=== PATIENT | male | born 1970 | race Caucasian/White ===

== ENCOUNTER 2021-12-30 18:41 | Inpatient (IN) | payer MEDICAID ==
[2021-12-30] MEDS ORDERED: PIPERACILLIN-TAZOBACTAM 3.375 GM in SODIUM CHLORIDE 0.9% 100 ML IVPB STA (19:18)
[2021-12-30] MEDS ORDERED: VANCOMYCIN IV PER PHARMACY 1 EACH MISC MISCELLANE PRN (19:18)
[2021-12-30] MEDS ORDERED: HYDROmorphone 1 MG/ML 1 ML SYRINGE IVP STA (19:21)
--- NOTE | 2021-12-30 19:23 | ED ---
General Adult HPI - General Chief complaint: Skin/Abscess/Foreign Body Stated complaint: Infection Time Seen by Provider: 12/30/21 19:06 Source: patient Mode of arrival: ambulatory Limitations: no limitations - History of Present Illness Initial comments: Patient is a pleasant 51-year-old male presenting to the emergency department with concern regarding infection in the scrotal region. Onset of symptoms was 5 or 6 days ago. Symptoms worsened the past couple of days. Patient has been having fevers. Patient now is having drainage. Patient is having swelling of the scrotum and penile region. There is foul odor associated. No history of similar symptoms previously however there is a family history of similar problems. - Related Data Allergies Allergy/AdvReac Type Severity Reaction Status Date / Time lactose AdvReac Diarrhea Verified 12/30/21 19:03 Review of Systems ROS Statement: Those systems with pertinent positive or pertinent negative responses have been documented in the HPI. ROS Other: All systems not noted in ROS Statement are negative. Constitutional: Reports: fever, chills Eyes: Denies: eye pain ENT: Denies: ear pain Respiratory: Denies: cough Cardiovascular: Denies: chest pain Endocrine: Denies: fatigue Genitourinary: Reports: as per HPI, testicular pain, testicular mass Musculoskeletal: Denies: back pain Skin: Reports: rash Neurological: Denies: weakness Past Medical History Past Medical History: No Reported History History of Any Multi-Drug Resistant Organisms: None Reported Additional Past Surgical History / Comment(s): oral surgery Past Psychological History: No Psychological Hx Reported Smoking Status: Never smoker Past Alcohol Use History: Occasional Past Drug Use History: None Reported General Exam Limitations: no limitations General appearance: alert, in no apparent distress Head exam: Present: normocephalic Eye exam: Present: normal appearance Neck exam: Present: normal inspection Respiratory exam: Present: normal lung sounds bilaterally Cardiovascular Exam: Present: tachycardia GI/Abdominal exam: Present: soft. Absent: tenderness exam: Present: other (Patient with moderate penile and scrotal swelling. There is mild scrotal erythema. There is open abscess area posterior to the scrotum, approximate 1 cm with purulent drainage and odor. No crepitus. No black discoloration.) Extremities exam: Present: normal inspection Neurological exam: Present: alert Psychiatric exam: Present: normal affect, normal mood Skin exam: Present: erythema (mild erythema of the scrotum) Course Vital Signs 06/05/22 18:58 Temperature 99.6 F Pulse Rate 121 H Respiratory 16 Rate Blood Pressure 116/69 O2 Sat by Pulse 100 Oximetry - Reevaluation(s) Reevaluation #1: 12/30/21 20:36 Patient does meet sepsis criteria diagnosed at 2035. Blood culture and lactic acid and IV antibiotics have all been ordered. IV fluids at 1 30 mL per hour. Case discussed with Dr. Garcia with urology who will review films and call back 12/30/21 20:49 Case again discussed with Dr. garcia who does not have concern for Mario's gangrene. He is agreement with Zosyn and vancomycin. He recommends nothing by mouth after midnight and will reevaluate patient tomorrow in the hospital Medical Decision Making - Lab Data Result diagrams: 12/30/21 20:00 12/30/21 20:00 Lab Results 12/30/21 12/30/21 12/30/21 Range/Units 20:00 20:00 20:00 WBC 12.6 H (3.8-10.6) k/uL RBC 4.98 (4.30-5.90) m/uL Hgb 15.3 (13.0-17.5) gm/dL Hct 46.5 (39.0-53.0) % MCV 93.4 (80.0-100.0) fL MCH 30.8 (25.0-35.0) pg MCHC 33.0 (31.0-37.0) g/dL RDW 13.6 (11.5-15.5) % Plt Count 296 (150-450) k/uL MPV 8.0 PT 11.3 (9.0-12.0) sec INR 1.1 (<1.2) APTT 27.1 (22.0-30.0) sec Sodium 130 L (137-145) mmol/L Potassium 5.0 (3.5-5.1) mmol/L Chloride 95 L (98-107) mmol/L Carbon Dioxide 22 (22-30) mmol/L Anion Gap 13 mmol/L BUN 24 H (9-20) mg/dL Creatinine 1.38 H (0.66-1.25) mg/dL Est GFR (CKD-EPI)AfAm 68 (>60 ml/min/1.73 sqM) Est GFR (CKD-EPI)NonAf 59 (>60 ml/min/1.73 sqM) Glucose 294 H (74-99) mg/dL Calcium 8.1 L (8.4-10.2) mg/dL Total Bilirubin 1.2 (0.2-1.3) mg/dL AST 33 (17-59) U/L ALT 33 (4-49) U/L Alkaline Phosphatase 169 H (38-126) U/L Total Protein 6.8 (6.3-8.2) g/dL Albumin 3.6 (3.5-5.0) g/dL Critical Care Time Critical Care Time: Yes Total Critical Care Time: 33 Disposition Clinical Impression: Cellulitis of scrotum, Abscess of scrotum, Sepsis Disposition: ADMITTED IP TO THIS HOSP Condition: Serious Is patient prescribed a controlled substance at d/c from ED?: No Referrals: Lennox Mann MD [Primary Care Provider] - 1-2 days Time of Disposition: 20:50
[2021-12-30] MEDS ORDERED: ACETAMINOPHEN TAB 500 MG TAB PO STA (20:00)
[2021-12-30 20:21] LABS: HCT 46.5 % (39.0-53.0); HGB 15.3 gm/dL (13.0-17.5); MCH 30.8 pg (25.0-35.0); MCV 93.4 fL (80.0-100.0); Platelet Count 296 k/uL (150-450); RBC 4.98 m/uL (4.30-5.90); RDW 13.6 % (11.5-15.5); WBC 12.6 k/uL (3.8-10.6)
[2021-12-30 20:28] LABS: INR 1.1 (<1.2); Partial Thromboplastin Time 27.1 sec (22.0-30.0); Prothrombin Time 11.3 sec (9.0-12.0)
[2021-12-30 20:33] LABS: Albumin 3.6 g/dL (3.5-5.0); Calcium 8.1 mg/dL (8.4-10.2); Total Bilirubin 1.2 mg/dL (0.2-1.3); Total Protein 6.8 g/dL (6.3-8.2)
[2021-12-30] MEDS ORDERED: NALOXONE 0.4 MG/ML 1 ML VIAL IV PRN (20:51)
[2021-12-30] MEDS ORDERED: ONDANSETRON 4 MG/2 ML VIAL IVP PRN (20:51)
--- NOTE | 2021-12-30 20:55 | CT ---
EXAMINATION TYPE: CT pelvis w con DATE OF EXAM: 12/30/2021 COMPARISON: None HISTORY: Perineal abscess CT DLP: 1346.7 mGycm Automated exposure control for dose reduction was used. CONTRAST: Performed without and with IV Contrast, patient injected with 100 mL of Isovue 300. Images obtained from the mid liver to the subtrochanteric femurs with IV contrast. Bladder distends smoothly. There is fluid in the large bowel down to the rectum. No free fluid in the pelvis. There is bilateral inguinal hernias that contain fat. There is subcutaneous edema around the scrotum. This is more on the right side. No drainable fluid collection. No pelvic lymphadenopathy. Kidneys appear normal. No retroperitoneal adenopathy. Bony pelvis is intac t. Delayed images show normal renal excretion at the ureters. The bony pelvis is intact. Hip joints are intact. There are bilateral enlarged inguinal lymph nodes m easuring up to 2.5 x 1.5 cm. IMPRESSION: There is scrotal edema and subcutaneous fluid extending into the pubic region and consistent with sissy lulitis. No drainable fluid collection. Large bowel fluid levels consistent with diarrhea. Inguinal lymphadenopathy.
--- NOTE | 2021-12-30 21:21 | US ---
EXAMINATION TYPE: US venous doppler duplex LE LT DATE OF EXAM: 12/30/2021 7:27 PM COMPARISON: NONE CLINICAL HISTORY: swelling. calf pain, no swelling, no h/o dvt SIDE PERFORMED: Left TECHNIQUE: The lower extremity deep venous system is examined utilizing real time linear array sonog jame with graded compression, doppler sonography and color-flow sonography. VESSELS IMAGED: Common Femoral Vein Deep Femoral Vein Greater Saphenous Vein * Femoral Vein Popliteal Vein Small Saphenous Vein * Proximal Calf Veins (* superficial vessels) Left Leg: Negative for DVT IMPRESSION: No sign of deep vein thrombosis in the left leg.
[2021-12-30] MEDS ORDERED: VANCOMYCIN 1,500 MG in SODIUM CHLORIDE 0.9% 250 ML IVPB ONE (21:30)
[2021-12-30 21:44] LABS: Band Neutrophils % 18 %; Lymphocytes # (M) 0.13 k/uL (1.0-4.8); Monocytes # (M) 0.38 k/uL (0-1.0); Neutrophils % (M) 78 %; Nucleated Red Blood Cells 0 /100 WBC (0-0); RBC Morphology Normal; Total Cells Counted 100
[2021-12-30 23:05] LABS: Glucose,Whole Blood 252 mg/dL (75-99)
[2021-12-30] MEDS: INSULIN ASPART (NovoLOG) 100 UNIT/ML VIAL SQ SCH (23:16)
[2021-12-31 01:25] LABS: Glucose,Whole Blood 177 mg/dL (75-99)
[2021-12-31] MEDS: SODIUM CHLORIDE 0.9% 1,000 ML IV SCH ×4 (04:01→20:47)
[2021-12-31] MEDS: PIPERACILLIN-TAZOBACTAM 3.375 GM in SODIUM CHLORIDE 0.9% 100 ML IVPB SCH ×3 (04:04→20:47)
[2021-12-31 06:51] LABS: Calcium 7.5 mg/dL (8.4-10.2); Potassium 4.6 mmol/L (3.5-5.1)
[2021-12-31 07:21] LABS: Glucose,Whole Blood 159 mg/dL (75-99)
[2021-12-31 07:35] LABS: HCT 43.1 % (39.0-53.0); MCH 30.2 pg (25.0-35.0); MCHC 32.4 g/dL (31.0-37.0); MCV 93.3 fL (80.0-100.0); Mean Platelet Volume 8.1; Platelet Count 220 k/uL (150-450); RBC 4.62 m/uL (4.30-5.90); RDW 13.6 % (11.5-15.5); WBC 11.3 k/uL (3.8-10.6)
[2021-12-31 07:45] LABS: Appearance,Urine Clear (Clear); Bacteria,Urine Rare /hpf; Bilirubin,Urine Negative (Negative); Blood,Urine Moderate (Negative); Color,Urine Yellow; Glucose,Urine (UA) Negative (Negative); Ketones,Urine Negative (Negative); Leukocyte Esterase,Urine Trace (Negative); Mucus,Urine Rare /hpf; Nitrite,Urine Negative (Negative); Protein,Urine 1+ (Negative); RBC,Urine <1 /hpf (0-5); Specific Gravity,Urine 1.031 (1.001-1.035); Squamous Epithelial Cell,Urine <1 /hpf (0-4); Urobilinogen,Urine <2.0 mg/dL (<2.0); WBC,Urine 13 /hpf (0-5)
[2021-12-31] MEDS: INSULIN ASPART (NovoLOG) 100 UNIT/ML VIAL SQ SCH ×4 (08:53→20:44)
[2021-12-31] MEDS: PANTOPRAZOLE 40 MG/10 ML VIAL IV SCH (09:01)
[2021-12-31 09:18] LABS: Band Neutrophils % 8 %; Eosinophils # (M) 0.11 k/uL (0-0.7); Lymphocytes # (M) 0.34 k/uL (1.0-4.8); Metamyelocytes # (M) 0.11 k/uL (0); Metamyelocytes % 1 %; Monocytes # (M) 1.02 k/uL (0-1.0); Neutrophils % (M) 80 %; Nucleated Red Blood Cells 0 /100 WBC (0-0); Total Cells Counted 200
[2021-12-31 09:19] LABS: RBC Morphology Normal
[2021-12-31] MEDS: VANCOMYCIN 1,500 MG in SODIUM CHLORIDE 0.9% 250 ML IVPB SCH ×2 (10:00→21:14)
--- NOTE | 2021-12-31 10:08 | P.GSHP ---
History of Present Illness H&P Date: 12/31/21 51-year-old gentleman who for 5 days has had tenderness and swelling of the scrotum. He states that he had a pimple on the bottom the scrotum and it swelled. On Friday did swell a lot and he ended up in the emergency room. He is evaluated and found to have a scrotal abscess. Apparently spontaneously drained. He is admitted however due to the significant scrotal cellulitis. He states he feels a little bit better since it has drained. He has had fever and chills. His white count was 12.6. He has not had previous abscess. There have been no injuries. he is not diabetic. The computed tomography scan shows scrotal edema without significant fluid collection. There is no air noted. - Constitutional Constitutional: Denies chills, Denies fever - EENT Eyes: denies blurred vision, denies pain Ears, nose, mouth and throat: Denies headache, Denies sore throat - Cardiovascular Cardiovascular: Denies chest pain, Denies shortness of breath - Respiratory Respiratory: Denies cough, Denies 7 - Gastrointestinal Gastrointestinal: Denies abdominal pain, Denies diarrhea, Denies nausea, Denies vomiting - Genitourinary (Female) Genitourinary: Denies dysuria, Denies hematuria - Genitourinary (Male) Genitourinary: Denies dysuria, Denies hematuria - Musculoskeletal Musculoskeletal: Denies myalgias - Integumentary Integumentary: Denies pruritus, Denies rash - Neurological Neurological: Denies numbness, Denies weakness - Psychiatric Psychiatric: Denies anxiety, Denies depression - Endocrine Endocrine: Denies fatigue, Denies weight change Past Medical History Past Medical History: No Reported History History of Any Multi-Drug Resistant Organisms: None Reported Additional Past Surgical History / Comment(s): oral surgery -- wisdom teeth Past Anesthesia/Blood Transfusion Reactions: No Reported Reaction Past Psychological History: No Psychological Hx Reported Smoking Status: Never smoker Past Alcohol Use History: Occasional Past Drug Use History: None Reported Medications and Allergies Home Medications Medication Instructions Recorded Confirmed Type Multivitamins, Thera [Multivitamin 1 tab PO DAILY 12/30/21 12/30/21 History (formulary)] Allergies Allergy/AdvReac Type Severity Reaction Status Date / Time lactose AdvReac Diarrhea Verified 12/30/21 21:17 Surgical - Exam Vital Signs Temp Pulse Resp BP Pulse Ox 99.6 F 121 H 16 116/69 100 12/30/21 18:58 12/30/21 18:58 12/30/21 18:58 12/30/21 18:58 12/30/21 18:58 - General Mild distress well developed, well nourished - Eyes PERRL - ENT no hearing loss - Neck no masses, trachea midline - Respiratory normal expansion, normal respiratory effort - Cardiovascular Rhythm: regular - Abdomen Abdomen: soft, non tender - Genitourinary Erythema of the scrotum. Phallus is circumcised. There is a nickel-size area of necrosis the base of the shaft with drainage. The scrotum is erythematous edematous swollen and tender. There is some drainage in the posterior scrotum. There is no crepitus. - Integumentary no rash, no growths - Neurologic normal coordination, normal sensation - Musculoskeletal normal posture - Psychiatric oriented to time, oriented to person, oriented to place, speech is normal, memory intact Results - Labs 12/31/21 06:08 12/31/21 06:08 Abnormal Lab Results - Last 24 Hours (Table) 12/30/21 12/30/21 12/30/21 Range/Units 20:00 20:00 20:00 WBC 12.6 H (3.8-10.6) k/uL Neutrophils # (Manual) 12.00 H (1.3-7.7) k/uL Lymphocytes # (Manual) 0.13 L (1.0-4.8) k/uL Monocytes # (Manual) (0-1.0) k/uL Metamyelocytes # (Man) (0) k/uL Sodium 130 L (137-145) mmol/L Chloride 95 L (98-107) mmol/L BUN 24 H (9-20) mg/dL Creatinine 1.38 H (0.66-1.25) mg/dL Glucose 294 H (74-99) mg/dL POC Glucose (mg/dL) (75-99) mg/dL Plasma Lactic Acid Keegan 2.7 H* (0.7-2.0) mmol/L Calcium 8.1 L (8.4-10.2) mg/dL Alkaline Phosphatase 169 H (38-126) U/L Urine Protein (Negative) Urine Blood (Negative) Ur Leukocyte Esterase (Negative) Urine WBC (0-5) /hpf Urine Bacteria (None) /hpf Urine Mucus (None) /hpf 12/30/21 12/31/21 12/31/21 Range/Units 23:04 01:16 06:08 WBC 11.3 H (3.8-10.6) k/uL Neutrophils # (Manual) 9.90 H (1.3-7.7) k/uL Lymphocytes # (Manual) 0.34 L (1.0-4.8) k/uL Monocytes # (Manual) 1.02 H (0-1.0) k/uL Metamyelocytes # (Man) 0.11 H (0) k/uL Sodium (137-145) mmol/L Chloride (98-107) mmol/L BUN (9-20) mg/dL Creatinine (0.66-1.25) mg/dL Glucose (74-99) mg/dL POC Glucose (mg/dL) 252 H 177 H (75-99) mg/dL Plasma Lactic Acid Keegan (0.7-2.0) mmol/L Calcium (8.4-10.2) mg/dL Alkaline Phosphatase (38-126) U/L Urine Protein (Negative) Urine Blood (Negative) Ur Leukocyte Esterase (Negative) Urine WBC (0-5) /hpf Urine Bacteria (None) /hpf Urine Mucus (None) /hpf 12/31/21 12/31/21 12/31/21 Range/Units 06:08 07:19 07:26 WBC (3.8-10.6) k/uL Neutrophils # (Manual) (1.3-7.7) k/uL Lymphocytes # (Manual) (1.0-4.8) k/uL Monocytes # (Manual) (0-1.0) k/uL Metamyelocytes # (Man) (0) k/uL Sodium 132 L (137-145) mmol/L Chloride (98-107) mmol/L BUN 28 H (9-20) mg/dL Creatinine (0.66-1.25) mg/dL Glucose 184 H (74-99) mg/dL POC Glucose (mg/dL) 159 H (75-99) mg/dL Plasma Lactic Acid Keegan (0.7-2.0) mmol/L Calcium 7.5 L (8.4-10.2) mg/dL Alkaline Phosphatase (38-126) U/L Urine Protein 1+ H (Negative) Urine Blood Moderate H (Negative) Ur Leukocyte Esterase Trace H (Negative) Urine WBC 13 H (0-5) /hpf Urine Bacteria Rare H (None) /hpf Urine Mucus Rare H (None) /hpf Microbiology - Last 24 Hours (Table) 12/30/21 20:00 Gram Stain - Preliminary Groin Wound Culture - Preliminary Diabetes panel 12/30/21 12/31/21 Range/Units 20:00 06:08 Sodium 130 L 132 L (137-145) mmol/L Potassium 5.0 4.6 (3.5-5.1) mmol/L Chloride 95 L 100 (98-107) mmol/L Carbon Dioxide 22 23 (22-30) mmol/L BUN 24 H 28 H (9-20) mg/dL Creatinine 1.38 H 1.19 (0.66-1.25) mg/dL Glucose 294 H 184 H (74-99) mg/dL Calcium 8.1 L 7.5 L (8.4-10.2) mg/dL AST 33 (17-59) U/L ALT 33 (4-49) U/L Alkaline Phosphatase 169 H (38-126) U/L Total Protein 6.8 (6.3-8.2) g/dL Albumin 3.6 (3.5-5.0) g/dL Calcium panel 12/30/21 12/31/21 Range/Units 20:00 06:08 Calcium 8.1 L 7.5 L (8.4-10.2) mg/dL Albumin 3.6 (3.5-5.0) g/dL Pituitary panel 12/30/21 12/31/21 Range/Units 20:00 06:08 Sodium 130 L 132 L (137-145) mmol/L Potassium 5.0 4.6 (3.5-5.1) mmol/L Chloride 95 L 100 (98-107) mmol/L Carbon Dioxide 22 23 (22-30) mmol/L BUN 24 H 28 H (9-20) mg/dL Creatinine 1.38 H 1.19 (0.66-1.25) mg/dL Glucose 294 H 184 H (74-99) mg/dL Calcium 8.1 L 7.5 L (8.4-10.2) mg/dL Adrenal panel 12/30/21 12/31/21 Range/Units 20:00 06:08 Sodium 130 L 132 L (137-145) mmol/L Potassium 5.0 4.6 (3.5-5.1) mmol/L Chloride 95 L 100 (98-107) mmol/L Carbon Dioxide 22 23 (22-30) mmol/L BUN 24 H 28 H (9-20) mg/dL Creatinine 1.38 H 1.19 (0.66-1.25) mg/dL Glucose 294 H 184 H (74-99) mg/dL Calcium 8.1 L 7.5 L (8.4-10.2) mg/dL Total Bilirubin 1.2 (0.2-1.3) mg/dL AST 33 (17-59) U/L ALT 33 (4-49) U/L Alkaline Phosphatase 169 H (38-126) U/L Total Protein 6.8 (6.3-8.2) g/dL Albumin 3.6 (3.5-5.0) g/dL - Imaging US - pelvic: report reviewed, image reviewed Assessment and Plan Assessment: Impression: Scrotal cellulitis, scrotal edema with spontaneous drainage of abscess, 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 Recommendations: Patient is getting IV fluids and IV antibiotics. He'll require exploration,drainage and debridement today. This is been discussed with the patient.
[2021-12-31 11:23] LABS: Glucose,Whole Blood 131 mg/dL (75-99)
[2021-12-31] MEDS: HYDROmorphone 1 MG/ML 1 ML SYRINGE IVP PRN (13:18)
[2021-12-31] MEDS ORDERED: LACTATED RINGERS 1,000 ML IV ONE ×2 (15:23→17:10)
[2021-12-31] MEDS ORDERED: ONDANSETRON 4 MG/2 ML VIAL IVP ONE (15:27)
[2021-12-31] MEDS ORDERED: MIDAZOLAM 2 MG/2 ML VIAL IVP ONE (15:46)
[2021-12-31 16:14] LABS: Glucose,Whole Blood 78 mg/dL (75-99)
[2021-12-31] MEDS ORDERED: PROPOFOL 10 MG/ML 20 ML VIAL IV ONE (16:23)
[2021-12-31] MEDS ORDERED: LIDOCAINE 2% INJ 20 MG/ML (2 ML VIAL) ONE (16:23)
[2021-12-31] MEDS ORDERED: fentaNYL (PF) 50 MCG/ML 2 ML AMP ONE (16:23)
[2021-12-31] MEDS ORDERED: PHENYLEPHRINE-0.9% NACL SYG 1,000 MCG/10 ML SYRINGE ONE (16:23)
[2021-12-31] MEDS ORDERED: HYDROmorphone (PF) 1 MG/ML ONE (16:23)
[2021-12-31] MEDS ORDERED: MIDAZOLAM 2 MG/2 ML VIAL ONE (16:23)
--- NOTE | 2021-12-31 17:26 | P.OP ---
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 He states a week ago he had a small pimple on the base of his perineum. It didn't seem to get better and by Friday it had developed into significant cellulitis and inflammation. He was seen in the emergency room last night and diagnosis of scrotal abscess and admitted to our service. I saw him later this morning and I was concerned that indeed this could be a Mario's. The necrotic area of skin at the base on the right side of this penis as well as marked edema of the scrotum and tenderness. We'll his white count was not elevated down concerned of a Mario's knee comes for necrotic tissue debridement exploration of the scrotum, drainage of abscess of abscess. Description of Procedure: The patient is brought to the operating suite. He was given general anesthesia. He's placed in lithotomy position with sterile prep and drape. Inspection of the scrotum and perineal region indeed identifies marked cellulitis with crepitus it was not felt before. The area of necrosis on the base of the penis has enlarged. First incised the area of necrosis and collect cultures. I then opened the scrotum in a vertical fashion down the midline and drain out a significant amount of cloudy fluid consistent with strep infection debrided a significant amount of scrotum and necrotic tissue. I then extended incision further posteriorly. Debridement manually up in both inguinal canals. I then make a counter incision where the initial lesion was identified and extended superiorly. I debrided a significant amount of tissue also in that region. Marked erythema in the suprapubic region has subsided. More fluid drainage is identified. There is fresh bleeding on the scrotal skin edges as well as in the anterior scrotal tissue. This will procedure takes about an hour liberating him of this necrotic tissue consistent with Mario's gangrene. The patient is awakened and returned recovery room stable condition. He'll be placed in the ICU. Blood loss is 100 mL.
[2021-12-31 18:15] LABS: Glucose,Whole Blood 56 mg/dL (75-99)
[2021-12-31 18:15] LABS: Glucose,Whole Blood 51 mg/dL (75-99)
[2021-12-31] MEDS ORDERED: DEXTROSE 50% SYRINGE 50 ML IVP ONE (18:16)
[2021-12-31 18:38] LABS: Glucose,Whole Blood 146 mg/dL (75-99)
[2021-12-31 20:45] LABS: Glucose,Whole Blood 114 mg/dL (75-99)
--- NOTE | 2021-12-31 22:31 | P.CONS ---
History of Present Illness - Reason for Consult Consult date: 12/31/21 Positive blood cultures Requesting physician: Lennox Banks - Chief Complaint Scrotal pain and swelling x few days - History of Present Illness Patient is a 51-year male with no significant past medical history presenting to the ER last night for evaluation of infection to the scrotal region patient symptom has been going on for 5 to 6 days before presentation to hospital patient denies having history of any trauma mention he started insulin pump and has gradual increase in size to become more swollen red and painful patient was describing his pain to be more of a sharp in nature, 7 out of 10 and no radiation with associated swelling and started having drainage with the center the patient has been evaluated by ER physician on arrival to the ER patient was running a low-grade fever of 99.6 degrees formulae the patient was tachycardic patient did have a white count of 12.6 with a left shift BUN was elevated creatinine was 1.38 there was an abnormal urine mildly positive patient did have a pelvic CT prescription which shows scrotal edema and subcutaneous fluid extending into the pubic region and consistent with cellulitis no drainable fluid collection 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 and the patient is status post extensive debridement and drainage of the scrotal abscess debridement of the necrotic Mario's gangrene cultures has been obtained which are currently showing presented MRSA and Streptococcus pyogenes blood cultures also showing staph auris and Streptococcus pyogenes patient is currently being treated with Zosyn and vancomycin infectious disease was consulted for further management of antibiotic therapy Review of Systems Positive point has been mentioned in the HPI rest of the systems are negative Past Medical History Past Medical History: No Reported History History of Any Multi-Drug Resistant Organisms: None Reported Additional Past Surgical History / Comment(s): oral surgery -- wisdom teeth Past Anesthesia/Blood Transfusion Reactions: No Reported Reaction Past Psychological History: No Psychological Hx Reported Smoking Status: Never smoker Past Alcohol Use History: Occasional Past Drug Use History: None Reported Medications and Allergies Home Medications Medication Instructions Recorded Confirmed Type Multivitamins, Thera [Multivitamin 1 tab PO DAILY 12/30/21 12/30/21 History (formulary)] HYDROcodone/APAP 5-325MG [[place] 1 tab PO Q4HR PRN 3 Days #18 tab 01/08/22 Rx 5-325] Allergies Allergy/AdvReac Type Severity Reaction Status Date / Time lactose AdvReac Diarrhea Verified 12/30/21 21:17 Physical Exam Vitals: Vital Signs Temp Pulse Pulse Pulse Resp BP BP 12/31/21 15:26 98.8 F 78 18 111/70 12/31/21 12:08 99 F 108 H 16 124/79 12/31/21 05:13 98.8 F 96 18 106/69 12/30/21 23:01 99 F 103 H 18 115/61 12/30/21 20:55 99.3 F 110 H 18 111/65 12/30/21 18:58 99.6 F 121 H 16 116/69 Pulse Ox 12/31/21 15:26 98 12/31/21 12:08 99 12/31/21 05:13 98 12/30/21 23:01 99 12/30/21 20:55 100 12/30/21 18:58 100 Intake and Output 12/31/21 12/31/21 12/31/21 06:59 14:59 22:59 Intake Total 1030 1000 Balance 1030 1000 Intake: IV 1000 Intake, IV Titration 1030 Amount Sodium Chloride 0.9% 1, 780 000 ml @ 130 mls/hr IV . Q7H42M [facility] Rx#:[id number] Vancomycin 1,500 mg In 250 Sodium Chloride 0.9% 250 ml @ 125 mls/hr IVPB Q12H [facility] Rx#:[id number] Oral 0 Other: Voiding Method Toilet Urinal # Bowel Movements 0 GENERAL DESCRIPTION: Middle-aged male lying in bed, no distress. No tachypnea or accessory muscle of respiration use. HEENT: Shows Pallor , no scleral icterus. Oral mucous membrane is dry. No pharyngeal erythema or thrush NECK: Trachea central, no thyromegaly. LUNGS: Unlabored breathing. Clear to auscultation anteriorly. No wheeze or crackle. HEART: S1, S2, regular rate and rhythm. No loud murmur ABDOMEN: Soft, no tenderness , guarding or rigidity, no organomegaly Scrotal swelling and redness deep wound was drainage EXTREMITIES: No edema of feet. SKIN: No rash, no masses palpable. NEUROLOGICAL: The patient is awake, alert, oriented x3, mood and affect normal. Results CBC & Chem 7: 01/07/22 03:58 01/08/22 06:15 Labs: Abnormal Lab Results - Last 24 Hours (Table) 12/30/21 12/30/21 12/30/21 Range/Units 20:00 20:00 20:00 WBC 12.6 H (3.8-10.6) k/uL Neutrophils # (Manual) 12.00 H (1.3-7.7) k/uL Lymphocytes # (Manual) 0.13 L (1.0-4.8) k/uL Monocytes # (Manual) (0-1.0) k/uL Metamyelocytes # (Man) (0) k/uL Sodium 130 L (137-145) mmol/L Chloride 95 L (98-107) mmol/L BUN 24 H (9-20) mg/dL Creatinine 1.38 H (0.66-1.25) mg/dL Glucose 294 H (74-99) mg/dL POC Glucose (mg/dL) (75-99) mg/dL Plasma Lactic Acid Keegan 2.7 H* (0.7-2.0) mmol/L Calcium 8.1 L (8.4-10.2) mg/dL Alkaline Phosphatase 169 H (38-126) U/L Urine Protein (Negative) Urine Blood (Negative) Ur Leukocyte Esterase (Negative) Urine WBC (0-5) /hpf Urine Bacteria (None) /hpf Urine Mucus (None) /hpf 12/30/21 12/31/21 12/31/21 Range/Units 23:04 01:16 06:08 WBC 11.3 H (3.8-10.6) k/uL Neutrophils # (Manual) 9.90 H (1.3-7.7) k/uL Lymphocytes # (Manual) 0.34 L (1.0-4.8) k/uL Monocytes # (Manual) 1.02 H (0-1.0) k/uL Metamyelocytes # (Man) 0.11 H (0) k/uL Sodium (137-145) mmol/L Chloride (98-107) mmol/L BUN (9-20) mg/dL Creatinine (0.66-1.25) mg/dL Glucose (74-99) mg/dL POC Glucose (mg/dL) 252 H 177 H (75-99) mg/dL Plasma Lactic Acid Keegan (0.7-2.0) mmol/L Calcium (8.4-10.2) mg/dL Alkaline Phosphatase (38-126) U/L Urine Protein (Negative) Urine Blood (Negative) Ur Leukocyte Esterase (Negative) Urine WBC (0-5) /hpf Urine Bacteria (None) /hpf Urine Mucus (None) /hpf 12/31/21 12/31/21 12/31/21 Range/Units 06:08 07:19 07:26 WBC (3.8-10.6) k/uL Neutrophils # (Manual) (1.3-7.7) k/uL Lymphocytes # (Manual) (1.0-4.8) k/uL Monocytes # (Manual) (0-1.0) k/uL Metamyelocytes # (Man) (0) k/uL Sodium 132 L (137-145) mmol/L Chloride (98-107) mmol/L BUN 28 H (9-20) mg/dL Creatinine (0.66-1.25) mg/dL Glucose 184 H (74-99) mg/dL POC Glucose (mg/dL) 159 H (75-99) mg/dL Plasma Lactic Acid [place] (0.7-2.0) mmol/L Calcium 7.5 L (8.4-10.2) mg/dL Alkaline Phosphatase (38-126) U/L Urine Protein 1+ H (Negative) Urine Blood Moderate H (Negative) Ur Leukocyte Esterase Trace H (Negative) Urine WBC 13 H (0-5) /hpf Urine Bacteria Rare H (None) /hpf Urine Mucus Rare H (None) /hpf 12/31/21 Range/Units 11:21 WBC (3.8-10.6) k/uL Neutrophils # (Manual) (1.3-7.7) k/uL Lymphocytes # (Manual) (1.0-4.8) k/uL Monocytes # (Manual) (0-1.0) k/uL Metamyelocytes # (Man) (0) k/uL Sodium (137-145) mmol/L Chloride (98-107) mmol/L BUN (9-20) mg/dL Creatinine (0.66-1.25) mg/dL Glucose (74-99) mg/dL POC Glucose (mg/dL) 131 H (75-99) mg/dL Plasma Lactic Acid Keegan (0.7-2.0) mmol/L Calcium (8.4-10.2) mg/dL Alkaline Phosphatase (38-126) U/L Urine Protein (Negative) Urine Blood (Negative) Ur Leukocyte Esterase (Negative) Urine WBC (0-5) /hpf Urine Bacteria (None) /hpf Urine Mucus (None) /hpf Microbiology - Last 24 Hours (Table) 12/30/21 20:42 Blood Culture Gram Stain - Preliminary Blood 12/31/21 07:26 Urine Culture - Preliminary Urine,Voided 12/30/21 20:42 Blood Culture - Final Blood 12/30/21 20:00 Gram Stain - Preliminary Groin Wound Culture - Preliminary Assessment and Plan (1) Abscess of scrotum Status: Acute Code(s): N49.2 - INFLAMMATORY DISORDERS OF SCROTUM SNOMED Code(s): 25736123 Plan: 1patient presented to hospital with sepsis this patient with a fever elevated white count tachycardia secondary to extensive scrotal cellulitis/Mario's gangrene in this patient was status post extensive debridement and drainage of the scrotal abscess. 2local cultures obtained yesterday are growing presumptive MRSA and strep. 3patient did have a strep and staph for his bacteremia. 4we will continue the patient vancomycin and clindamycin however discontinue Zosyn as no vomiting has been seen in to decrease risk of nephrotoxicity. 5blood cultures will be repeated document clearance of bacteremia. We will follow on clinical condition and cultures to further adjust medication if needed Thank you for this consultation will follow this patient along with you Time with Patient: Greater than 30
[2021-12-31] MEDS: CLINDAMYCIN 900 MG in DEXTROSE 5% IN WATER 50 ML IVPB SCH ×2 (23:57)
[2022-01-01] MEDS: SODIUM CHLORIDE 0.9% 1,000 ML IV SCH ×2 (02:21→16:27)
[2022-01-01] MEDS: ACETAMINOPHEN TAB 325 MG TAB PO PRN ×2 (06:06→22:00)
[2022-01-01 06:46] LABS: Glucose,Whole Blood 89 mg/dL (75-99)
[2022-01-01] MEDS: INSULIN ASPART (NovoLOG) 100 UNIT/ML VIAL SQ SCH ×4 (06:46→21:30)
[2022-01-01 06:58] LABS: Basophils % (A) 0 %; Eosinophils # (A) 0.1 k/uL (0-0.7); Eosinophils % (A) 1 %; HGB 11.6 gm/dL (13.0-17.5); Lymphocytes # (A) 0.6 k/uL (1.0-4.8); Lymphocytes % (A) 8 %; Mean Platelet Volume 8.1; Monocytes # (A) 1.1 k/uL (0-1.0); Monocytes % (A) 16 %; Neutrophils % (A) 72 %; Platelet Count 216 k/uL (150-450); RBC 3.85 m/uL (4.30-5.90); RDW 13.5 % (11.5-15.5)
--- NOTE | 2022-01-01 07:00 | P.PN ---
Subjective Progress Note Date: 01/01/22 The patient is in the hospital with scrotal cellulitis due to strep, Mario's gangrene. He had extensive aggressive debridement yesterday for the necrotic tissue of the scrotum. He looks much better this morning. His vital signs been stable overnight. I inspected the wound and there does not appear to be any progression of the necrosis. He feels much better. His vital signs are stable. He is being seen by infectious disease. A urologic standpoint he is doing well. I had a lengthy discussion about total healing by secondary intent. Objective - Vital Signs Vital signs: Vital Signs Temp 98.7 F 01/01/22 04:00 Pulse 92 01/01/22 05:00 Resp 15 01/01/22 05:00 BP 109/65 01/01/22 05:00 Pulse Ox 100 01/01/22 05:00 FiO2 Intake & Output 12/31/21 12/31/21 01/01/22 06:59 18:59 06:59 Intake Total 1030 1300 1700 Output Total 200 800 Balance 1030 1100 900 Weight 92.986 kg 99.2 kg Intake: IV 1300 1700 Clindamycin 900 mg In 50 Dextrose 5% in Water 50 ml @ 50 mls/hr IVPB Q8HR [facility] Rx#:[id number] Piperacillin-Tazobactam 3 100 .375 gm In Sodium Chloride 0.9% 100 ml @ 25 mls/hr IVPB Q8H [facility] Rx#: [id number] Sodium Chloride 0.9% 1, 1300 000 ml @ 130 mls/hr IV . Q7H42M [facility] Rx#:[id number] Vancomycin 1,500 mg In 250 Sodium Chloride 0.9% 250 ml @ 125 mls/hr IVPB Q12H [facility] Rx#:[id number] Intake, IV Titration 1030 Amount Sodium Chloride 0.9% 1, 780 000 ml @ 130 mls/hr IV . Q7H42M [facility] Rx#:[id number] Vancomycin 1,500 mg In 250 Sodium Chloride 0.9% 250 ml @ 125 mls/hr IVPB Q12H [facility] Rx#:[id number] Oral 0 Output: Urine 100 800 Estimated Blood Loss 100 Other: Voiding Method Toilet Urinal Indwelling Catheter # Bowel Movements 0 - Labs CBC & Chem 7: 01/01/22 05:48 12/31/21 06:08 Labs: Abnormal Lab Results - Last 24 Hours (Table) 12/31/21 12/31/21 12/31/21 Range/Units 06:08 07:19 07:26 WBC 11.3 H (3.8-10.6) k/uL RBC (4.30-5.90) m/uL Hgb (13.0-17.5) gm/dL Hct (39.0-53.0) % Neutrophils # (Manual) 9.90 H (1.3-7.7) k/uL Lymphocytes # (1.0-4.8) k/uL Lymphocytes # (Manual) 0.34 L (1.0-4.8) k/uL Monocytes # (0-1.0) k/uL Monocytes # (Manual) 1.02 H (0-1.0) k/uL Metamyelocytes # (Man) 0.11 H (0) k/uL POC Glucose (mg/dL) 159 H (75-99) mg/dL Urine Protein 1+ H (Negative) Urine Blood Moderate H (Negative) Ur Leukocyte Esterase Trace H (Negative) Urine WBC 13 H (0-5) /hpf Urine Bacteria Rare H (None) /hpf Urine Mucus Rare H (None) /hpf 12/31/21 12/31/21 12/31/21 Range/Units 11:21 18:08 18:11 WBC (3.8-10.6) k/uL RBC (4.30-5.90) m/uL Hgb (13.0-17.5) gm/dL Hct (39.0-53.0) % Neutrophils # (Manual) (1.3-7.7) k/uL Lymphocytes # (1.0-4.8) k/uL Lymphocytes # (Manual) (1.0-4.8) k/uL Monocytes # (0-1.0) k/uL Monocytes # (Manual) (0-1.0) k/uL Metamyelocytes # (Man) (0) k/uL POC Glucose (mg/dL) 131 H 51 L 56 L (75-99) mg/dL Urine Protein (Negative) Urine Blood (Negative) Ur Leukocyte Esterase (Negative) Urine WBC (0-5) /hpf Urine Bacteria (None) /hpf Urine Mucus (None) /hpf 12/31/21 12/31/21 01/01/22 Range/Units 18:37 20:43 05:48 WBC (3.8-10.6) k/uL RBC 3.85 L (4.30-5.90) m/uL Hgb 11.6 L (13.0-17.5) gm/dL Hct 35.0 L (39.0-53.0) % Neutrophils # (Manual) (1.3-7.7) k/uL Lymphocytes # 0.6 L (1.0-4.8) k/uL Lymphocytes # (Manual) (1.0-4.8) k/uL Monocytes # 1.1 H (0-1.0) k/uL Monocytes # (Manual) (0-1.0) k/uL Metamyelocytes # (Man) (0) k/uL POC Glucose (mg/dL) 146 H 114 H (75-99) mg/dL Urine Protein (Negative) Urine Blood (Negative) Ur Leukocyte Esterase (Negative) Urine WBC (0-5) /hpf Urine Bacteria (None) /hpf Urine Mucus (None) /hpf Microbiology - Last 24 Hours (Table) 12/30/21 20:42 Blood Culture Gram Stain - Preliminary Blood Blood Culture - Preliminary Staphylococcus aureus Strep pyogenes (grp a) Staphylococcus epidermidis 12/30/21 20:00 Gram Stain - Preliminary Groin Wound Culture - Preliminary Strep pyogenes (grp a) Presumptive MRSA 12/30/21 20:00 Blood Culture - Preliminary Blood No Growth after 24 hours 12/31/21 07:26 Urine Culture - Preliminary Urine,Voided 12/30/21 20:42 Blood Culture - Final Blood
[2022-01-01 07:01] LABS: African American GFR (CKD) >90 (>60 ml/min/1.73 sqM); Anion Gap 8 mmol/L; Blood Urea Nitrogen 20 mg/dL (9-20); Calcium 7.1 mg/dL (8.4-10.2); Carbon Dioxide 21 mmol/L (22-30); Chloride 106 mmol/L (98-107); Glucose 92 mg/dL (74-99); Non-African American GFR(CKD) >90 (>60 ml/min/1.73 sqM); Phosphorus 3.3 mg/dL (2.5-4.5); Potassium 4.2 mmol/L (3.5-5.1); Sodium 135 mmol/L (137-145)
--- NOTE | 2022-01-01 08:24 | P.CNPUL ---
History of Present Illness Consult date: 01/01/22 Chief complaint: Mario gangrene History of present illness: 51-year-old male patient, was admitted because of a Mario's gangrene. The patient was taken to the operating room and the patient had extensive debridement yesterday and resection of the necrotic tissue in the scrotum. It evaluation today showed that the patient is improved and this is based on the urologic examinations was done today. Note that the patient was having fever. No hypotension. Throughout his ICU stay, the patient received IV fluids with normal saline at the rate of 130s's an hour. This morning he is afebrile. He is hemodynamically stable. He has not required any pressors. There is some discrepancy in the lower extremity diameter with the left lower extremity being slightly more swollen. However, Doppler of the lower extremities have been negative. The patient is currently on a combination of vancomycin and clindamycin. Preliminary cultures are showing strep pyogenes group A and a staph aureus and staph epidermidis. The patient's otherwise is hemodynamically stable. No altered mentation. He is on room air oxygen. No history of diabete s mellitus. No history of trauma. This whole thing started off with a small pimple and subsequently the extended. Review of Systems Constitutional: Reports fatigue, Reports fever, Reports poor appetite Eyes: denies as per HPI, denies blurred vision, denies bulging eye, denies decreased vision, denies diplopia, denies discharge, denies dry eye, denies irritation, denies itching, denies pain, denies photophobia, denies loss of michelle pheral vision, denies loss of vision, denies tunnel vision/blind spots Ears: deny: decreased hearing, ear discharge, earache, tinnitus Ears, nose, mouth and throat: Reports as per HPI Breasts: absent: as per HPI, gynecomastia Cardiovascular: Reports as per HPI Respiratory: Reports as per HPI Gastrointestinal: Reports as per HPI Genitourinary: Reports genital pain, Reports genital sores Musculoskeletal: Reports as per HPI Musculoskeletal: left: ankle swelling, absent: ankle pain, ankle stiffness Integumentary: Reports as per HPI, Reports wounds Neurological: Reports as per HPI Psychiatric: Reports as per HPI Endocrine: Reports as per HPI Hematologic/Lymphatic: Reports as per HPI Allergic/Immunologic: Reports as per HPI Past Medical History Past Medical History: No Reported History History of Any Multi-Drug Resistant Organisms: None Reported Additional Past Surgical History / Comment(s): oral surgery -- wisdom teeth Past Anesthesia/Blood Transfusion Reactions: No Reported Reaction Past Psychological History: No Psychological Hx Reported Smoking Status: Never smoker Past Alcohol Use History: Occasional Past Drug Use History: None Reported Medications and Allergies Home Medications Medication Instructions Recorded Confirmed Type Multivitamins, Thera [Multivitamin 1 tab PO DAILY 12/30/21 12/30/21 History (formulary)] Allergies Allergy/AdvReac Type Severity Reaction Status Date / Time lactose AdvReac Diarrhea Verified 12/30/21 21:17 Physical Exam Vitals: Vital Signs Temp Pulse Pulse Pulse Pulse Resp BP 01/01/22 05:00 92 15 109/65 01/01/22 04:00 98.7 F 92 17 120/73 01/01/22 03:00 93 20 114/71 01/01/22 02:00 96 19 121/78 01/01/22 01:00 96 18 120/79 01/01/22 00:08 93 23 114/70 01/01/22 00:00 98.6 F 93 19 104/66 12/31/21 23:00 96 18 121/65 12/31/21 22:00 98 20 95/77 12/31/21 21:00 98 19 114/74 12/31/21 20:00 98.9 F 102 H 21 107/72 12/31/21 19:00 109 H 18 110/71 12/31/21 18:36 113 H 22 12/31/21 18:30 99.6 F 104 H 18 12/31/21 18:15 113 H 18 12/31/21 18:00 114 H 18 12/31/21 17:44 119 H 18 12/31/21 17:29 99.1 F 114 H 20 12/31/21 15:26 98.8 F 78 18 12/31/21 12:08 99 F 108 H 16 BP Pulse Ox 01/01/22 05:00 100 01/01/22 04:00 100 01/01/22 03:00 99 01/01/22 02:00 98 01/01/22 01:00 100 01/01/22 00:08 100 01/01/22 00:00 100 12/31/21 23:00 100 12/31/21 22:00 99 12/31/21 21:00 100 12/31/21 20:00 98 12/31/21 19:00 97 12/31/21 18:36 12/31/21 18:30 110/71 97 12/31/21 18:15 101/61 97 12/31/21 18:00 121/72 100 12/31/21 17:44 118/72 100 12/31/21 17:29 119/71 99 12/31/21 15:26 111/70 98 12/31/21 12:08 124/79 99 Intake and Output 12/31/21 01/01/22 01/01/22 22:59 06:59 14:59 Intake Total 2040 960 Output Total 475 525 Balance 1565 435 Intake: IV 2040 960 Clindamycin 900 mg In 50 Dextrose 5% in Water 50 ml @ 50 mls/hr IVPB Q8HR [facility] Rx#:[id number] Piperacillin-Tazobactam 3 100 .375 gm In Sodium Chloride 0.9% 100 ml @ 25 mls/hr IVPB Q8H [facility] Rx#: [id number] Sodium Chloride 0.9% 1, 390 910 000 ml @ 130 mls/hr IV . Q7H42M [facility] Rx#:[id number] Vancomycin 1,500 mg In 250 Sodium Chloride 0.9% 250 ml @ 125 mls/hr IVPB Q12H [facility] Rx#:[id number] Output: Urine 375 525 Estimated Blood Loss 100 Other: Voiding Method Indwelling Catheter Indwelling Catheter Weight 92.986 kg 99.2 kg The Gen. appearance the patient is calm comfortable no acute distress. He, currently on room air oxygen Head exam was generally normal. There was no scleral icterus or corneal arcus. Mucous membranes were moist. Neck was supple and without jugular venous distension, thyromegaly, or carotid bruits. Carotids were easily palpable bilaterally. There was no adenopathy. Lungs were clear to auscultation and percussion, and with normal diaphragmatic excursion. No wheezes or rales were noted. Cardiac exam revealed the PMI to be normally situated and sized. The rhythm was regular and no extrasystoles were noted during several minutes of auscultation. The first and second heart sounds were normal and physiologic splitting of the second heart sound was noted. There were no murmurs, rubs, clicks, or gallops. Abdominal exam revealed normal bowel sounds. The abdomen was soft, non-tender, and without masses, organomegaly, or appreciable enlargement of the abdominal a aracelis. Extremities revealed some swelling in the left lower extremity compared to the right. No cyanosis or clubbing. exam shows that the patient is circumcised. The patient has evidence of a and drainage in his scrotal area with appropriate packing. No active drainage for now. No crepitus. Results - Laboratory Findings CBC and BMP: 01/01/22 05:48 01/01/22 05:48 PT/INR, D-dimer PT 11.3 sec (9.0-12.0) 12/30/21 20:00 INR 1.1 (<1.2) 12/30/21 20:00 Abnormal lab findings: Abnormal Labs 12/30/21 12/30/21 12/30/21 20:00 20:00 20:00 WBC 12.6 H RBC Hgb Hct Neutrophils # (Manual) 12.00 H Lymphocytes # Lymphocytes # (Manual) 0.13 L Monocytes # Monocytes # (Manual) Metamyelocytes # (Man) Sodium 130 L Chloride 95 L Carbon Dioxide BUN 24 H Creatinine 1.38 H Glucose 294 H POC Glucose (mg/dL) Plasma Lactic Acid Keegan 2.7 H* Calcium 8.1 L Alkaline Phosphatase 169 H Urine Protein Urine Blood Ur Leukocyte Esterase Urine WBC Urine Bacteria Urine Mucus 12/30/21 12/31/21 12/31/21 23:04 01:16 06:08 WBC 11.3 H RBC Hgb Hct Neutrophils # (Manual) 9.90 H Lymphocytes # Lymphocytes # (Manual) 0.34 L Monocytes # Monocytes # (Manual) 1.02 H Metamyelocytes # (Man) 0.11 H Sodium Chloride Carbon Dioxide BUN Creatinine Glucose POC Glucose (mg/dL) 252 H 177 H Plasma Lactic Acid Keegan Calcium Alkaline Phosphatase Urine Protein Urine Blood Ur Leukocyte Esterase Urine WBC Urine Bacteria Urine Mucus 12/31/21 12/31/21 12/31/21 06:08 07:19 07:26 WBC RBC Hgb Hct Neutrophils # (Manual) Lymphocytes # Lymphocytes # (Manual) Monocytes # Monocytes # (Manual) Metamyelocytes # (Man) Sodium 132 L Chloride Carbon Dioxide BUN 28 H Creatinine Glucose 184 H POC Glucose (mg/dL) 159 H Plasma Lactic Acid Keegan Calcium 7.5 L Alkaline Phosphatase Urine Protein 1+ H Urine Blood Moderate H Ur Leukocyte Esterase Trace H Urine WBC 13 H Urine Bacteria Rare H Urine Mucus Rare H 12/31/21 12/31/21 12/31/21 11:21 18:08 18:11 WBC RBC Hgb Hct Neutrophils # (Manual) Lymphocytes # Lymphocytes # (Manual) Monocytes # Monocytes # (Manual) Metamyelocytes # (Man) Sodium Chloride Carbon Dioxide BUN Creatinine Glucose POC Glucose (mg/dL) 131 H 51 L 56 L Plasma Lactic Acid Keegan Calcium Alkaline Phosphatase Urine Protein Urine Blood Ur Leukocyte Esterase Urine WBC Urine Bacteria Urine Mucus 12/31/21 12/31/21 01/01/22 18:37 20:43 05:48 WBC RBC Hgb Hct Neutrophils # (Manual) Lymphocytes # Lymphocytes # (Manual) Monocytes # Monocytes # (Manual) Metamyelocytes # (Man) Sodium 135 L Chloride Carbon Dioxide 21 L BUN Creatinine Glucose POC Glucose (mg/dL) 146 H 114 H Plasma Lactic Acid Keegan Calcium 7.1 L Alkaline Phosphatase Urine Protein Urine Blood Ur Leukocyte Esterase Urine WBC Urine Bacteria Urine Mucus 01/01/22 05:48 WBC RBC 3.85 L Hgb 11.6 L Hct 35.0 L Neutrophils # (Manual) Lymphocytes # 0.6 L Lymphocytes # (Manual) Monocytes # 1.1 H Monocytes # (Manual) Metamyelocytes # (Man) Sodium Chloride Carbon Dioxide BUN Creatinine Glucose POC Glucose (mg/dL) Plasma Lactic Acid Keegan Calcium Alkaline Phosphatase Urine Protein Urine Blood Ur Leukocyte Esterase Urine WBC Urine Bacteria Urine Mucus - Diagnostic Findings Chest x-ray: image reviewed Assessment and Plan Plan: Founier's gangrene, polymicrobial, primary cultures indicating staph and strep pyogenous, the patient is post debridement, incision and drainage and the patient is currently postop day #1 Sepsis secondary to above, no hypotension, no encephalopathy Hyperglycemia, rule out underlying diabetes mellitus Left lower extremity edema, no evidence of DVT on Doppler of the lower extremity Plan Provide the patient incentive spirometer. The patient is currently on room air oxygen. Continue vancomycin and clindamycin. Recommend also addition of a gram-negative coverage in this patient knowing that Enterobacter is very common with this type of Mario's gangrene. Recommended addition of either Zosyn or Merrem. This will be discussed with infectious disease. IV fluids of normal saline and will The Fluid to 75 ML's an Hour Check hemoglobin A1c Blood work was checked We'll obtain a baseline chest x-ray Lovenox 40 mg subcu daily Wound care Healing by secondary intention We'll continue to follow. Condition is stable and the patient can be transferred to the intensive care unit.
[2022-01-01] MEDS: ENOXAPARIN 40 MG/0.4 ML SYRINGE SQ SCH (08:26)
[2022-01-01] MEDS: PANTOPRAZOLE 40 MG/10 ML VIAL IV SCH (08:48)
[2022-01-01] MEDS: CLINDAMYCIN 900 MG in DEXTROSE 5% IN WATER 50 ML IVPB SCH ×4 (09:20→16:25)
[2022-01-01] MEDS: VANCOMYCIN 1,500 MG in SODIUM CHLORIDE 0.9% 250 ML IVPB SCH ×2 (09:20→23:33)
[2022-01-01 09:27] LABS: C Reactive Protein 30.9 mg/dL (<1.0)
--- NOTE | 2022-01-01 09:35 | XR ---
EXAMINATION TYPE: XR chest 1V portable DATE OF EXAM: 01/01/2022 COMPARISON: NONE HISTORY: Shortness of breath TECHNIQUE: Single frontal view of the chest is obtained. FINDINGS: Bilateral lower lung zone linear pulmonary atelectasis. Grossly unremarkable lungs otherwise. No sizable pleural effusion or definite pneumothorax. No gross cardiomegaly. No gross aggressive bone lesion. IMPRESSION: As above.
[2022-01-01 11:33] LABS: Glucose,Whole Blood 148 mg/dL (75-99)
[2022-01-01 16:20] LABS: Glucose,Whole Blood 163 mg/dL (75-99)
[2022-01-01 20:55] LABS: Glucose,Whole Blood 167 mg/dL (75-99)
[2022-01-01] MEDS ORDERED: VANCOMYCIN TROUGH DUE 1 EACH MISC MISCELLANE ONE (21:00)
[2022-01-02] MEDS: CLINDAMYCIN 900 MG in DEXTROSE 5% IN WATER 50 ML IVPB SCH ×8 (03:13→23:24)
[2022-01-02] MEDS: SODIUM CHLORIDE 0.9% 1,000 ML IV SCH ×2 (03:28→15:54)
[2022-01-02] MEDS: ACETAMINOPHEN TAB 325 MG TAB PO PRN ×2 (04:50→17:41)
[2022-01-02 05:37] LABS: African American GFR (CKD) >90 (>60 ml/min/1.73 sqM); Non-African American GFR(CKD) >90 (>60 ml/min/1.73 sqM)
[2022-01-02] MEDS: ENOXAPARIN 40 MG/0.4 ML SYRINGE SQ SCH (07:22)
[2022-01-02] MEDS: MULTIVITAMINS, THERA 1 EACH TAB PO SCH (07:23)
[2022-01-02] MEDS: PANTOPRAZOLE 40 MG/10 ML VIAL IV SCH (07:23)
[2022-01-02 07:24] LABS: Glucose,Whole Blood 149 mg/dL (75-99)
[2022-01-02] MEDS: INSULIN ASPART (NovoLOG) 100 UNIT/ML VIAL SQ SCH ×4 (07:27→20:45)
[2022-01-02] MEDS: VANCOMYCIN 1,500 MG in SODIUM CHLORIDE 0.9% 250 ML IVPB SCH ×2 (08:15→15:46)
[2022-01-02] MEDS: HYDROmorphone 1 MG/ML 1 ML SYRINGE IVP PRN ×3 (08:16→23:48)
--- NOTE | 2022-01-02 09:09 | P.PN ---
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 He continues to improve. His white count is normalized. He is afebrile. He is feeling much better. The packing was removed this morning by myself. The wound looks good. I do not see any progression of necrosis. I redressed the wound. The patient feels much better. I will begin sitz baths with dressing change. Objective - Vital Signs Vital signs: Vital Signs Temp 98.9 F 01/02/22 05:58 Pulse 93 01/02/22 04:40 Resp 17 01/02/22 04:40 BP 133/81 01/02/22 04:40 Pulse Ox 100 01/02/22 04:40 FiO2 Intake & Output 01/01/22 01/02/22 01/02/22 18:59 06:59 18:59 Intake Total 1080 490 Output Total 2800 2325 Balance -1720 -6043 Intake: IV 630 250 Clindamycin 900 mg In 100 Dextrose 5% in Water 50 ml @ 50 mls/hr IVPB Q8HR [facility] Rx#:[id number] Sodium Chloride 0.9% 1, 280 000 ml @ 75 mls/hr IV . [id number] [facility] Rx#:[id number] Vancomycin 1,500 mg In 250 250 Sodium Chloride 0.9% 250 ml @ 125 mls/hr IVPB Q12H [facility] Rx#:[id number] Oral 450 240 Output: Urine 2800 2325 Other: Voiding Method Indwelling Catheter Indwelling Catheter - Labs CBC & Chem 7: 01/01/22 05:48 01/02/22 05:03 Labs: Abnormal Lab Results - Last 24 Hours (Table) 01/01/22 01/01/22 01/01/22 Range/Units 05:48 05:48 11:31 POC Glucose (mg/dL) 148 H (75-99) mg/dL Magnesium 2.5 H (1.6-2.3) mg/dL C-Reactive Protein 30.9 H (<1.0) mg/dL 01/01/22 01/01/22 01/02/22 Range/Units 16:18 20:53 07:22 POC Glucose (mg/dL) 163 H 167 H 149 H (75-99) mg/dL Magnesium (1.6-2.3) mg/dL C-Reactive Protein (<1.0) mg/dL Microbiology - Last 24 Hours (Table) 01/01/22 05:48 Blood Culture - Preliminary Blood No Growth after 24 hours 12/30/21 20:00 Gram Stain - Preliminary Groin Wound Culture - Preliminary Strep pyogenes (grp a) Methicillin resist S. aureus 12/30/21 20:00 Blood Culture - Preliminary Blood No Growth after 48 hours 12/31/21 16:41 Gram Stain - Preliminary Other - Other Wound Culture - Preliminary 12/31/21 16:41 Gram Stain - Preliminary Other - Other Wound Culture - Preliminary 12/31/21 07:26 Urine Culture - Final Urine,Voided 12/31/21 16:41 Anaerobic Culture - Preliminary Scrotum 12/31/21 16:41 Anaerobic Culture - Preliminary Scrotum
[2022-01-02 11:21] LABS: Glucose,Whole Blood 216 mg/dL (75-99)
--- NOTE | 2022-01-02 13:01 | P.PN ---
Subjective Progress Note Date: 01/02/22 01/02/2022, the patient is post debridement of a marianela gangrene. She continues to improve. He was transferred out of the intensive care unit. He is afebrile for now. He remains on broad-spectrum antibiotics. No progression of his necrosis. The patient remains on a combination of vancomycin and cl indamycin. The patient on Lovenox for prophylaxis. The hemoglobin A1c was at 5.9 and the patient's does not seem to have any underlying chronic diabetes mellitus. is using incentive spirometer. No other issues for now. Objective - Vital Signs Vital signs: Vital Signs Temp 98.3 F 01/02/22 07:38 Pulse 89 01/02/22 07:38 Resp 17 01/02/22 08:00 BP 116/68 01/02/22 07:38 Pulse Ox 99 01/02/22 07:38 FiO2 Intake & Output 01/01/22 01/02/22 01/02/22 18:59 06:59 18:59 Intake Total 1080 490 180 Output Total 2800 2325 1225 Balance -1720 -1835 -1045 Intake: IV 630 250 Clindamycin 900 mg In 100 Dextrose 5% in Water 50 ml @ 50 mls/hr IVPB Q8HR [facility] Rx#:[id number] Sodium Chloride 0.9% 1, 280 000 ml @ 75 mls/hr IV . [id number] [facility] Rx#:[id number] Vancomycin 1,500 mg In 250 250 Sodium Chloride 0.9% 250 ml @ 125 mls/hr IVPB Q12H [facility] Rx#:[id number] Oral 450 240 180 Output: Urine 2800 2325 1225 Other: Voiding Method Indwelling Catheter Indwelling Catheter Indwelling Catheter - Exam The Gen. appearance the patient is calm comfortable no acute distress. He, currently on room air oxygen Head exam was generally normal. There was no scleral icterus or corneal arcus. Mucous membranes were moist. Neck was supple and without jugular venous distension, thyromegaly, or carotid bruits. Carotids were easily palpable bilaterally. There was no adenopathy. Lungs were clear to auscultation and percussion, and with normal diaphragmatic excursion. No wheezes or rales were noted. Cardiac exam revealed the PMI to be normally situated and sized. The rhythm was regular and no extrasystoles were noted during several minutes of auscultation. The first and second heart sounds were normal and physiologic splitting of the second heart sound was noted. There were no murmurs, rubs, clicks, or gallops. Abdominal exam revealed normal bowel sounds. The abdomen was soft, non-tender, and without masses, organomegaly, or appreciable enlargement of the abdominal aorta. Extremities revealed some swelling in the left lower extremity compared to the right. No cyanosis or clubbing. exam shows that the patient is circumcised. The patient has evidence of a c esarean and drainage in his scrotal area with appropriate packing. No active drainage for now. No crepitus. - Labs CBC & Chem 7: 01/01/22 05:48 01/02/22 05:03 Labs: Abnormal Lab Results - Last 24 Hours (Table) 01/01/22 01/01/22 01/02/22 Range/Units 16:18 20:53 07:22 POC Glucose (mg/dL) 163 H 167 H 149 H (75-99) mg/dL 01/02/22 Range/Units 11:18 POC Glucose (mg/dL) 216 H (75-99) mg/dL Microbiology - Last 24 Hours (Table) 12/31/21 16:41 Gram Stain - Preliminary Other - Other Wound Culture - Preliminary Presumptive MRSA Strep pyogenes (grp a) 12/31/21 16:41 Gram Stain - Preliminary Other - Other Wound Culture - Preliminary Strep pyogenes (grp a) 12/30/21 20:00 Gram Stain - Preliminary Groin Wound Culture - Preliminary Strep pyogenes (grp a) Methicillin resist S. aureus 01/01/22 05:48 Blood Culture - Preliminary Blood No Growth after 24 hours 12/30/21 20:00 Blood Culture - Preliminary Blood No Growth after 48 hours 12/31/21 07:26 Urine Culture - Final Urine,Voided Assessment and Plan Plan: Founier's gangrene, polymicrobial, primary cultures indicating staph and strep pyogenous, the patient is post debridement, incision and drainage and the patient is currently postop day #2, the patient is stable on broad-spectrum antibiotics Sepsis secondary to above, no hypotension, no encephalopathy Hyperglycemia, rule out underlying diabetes mellitus Left lower extremity edema, no evidence of DVT on Doppler of the lower extremity Plan Provide the patient incentive spirometer. The patient is currently on room air oxygen. Continue vancomycin and clindamycin IV fluids of normal saline 75 ML's an Hour Check hemoglobin A1c is within normal limits Blood work was checked We'll obtain a baseline chest x-ray Lovenox 40 mg subcu daily Wound care Healing by secondary intention Will sign off the case and we'll leave the rest of the management for urology and infectious disease of the medical team.
--- NOTE | 2022-01-02 15:33 | CDI ---
Documentation Clarification Form Date: 01/02/2022 03:11:30 PM From: Chayito Ayoub RN CCDS Admit Date: 12/30/2021 08:51:00 PM Patient Name: Jarvis Bhat Visit Number: [id number] Discharge Date: ATTENTION: The Clinical Documentation Specialists (CDI) and [employer] Coding Staff appreciate your assistance in clarifying documentation. Please respond to the clarification below the line at the bottom and electronically sign. The CDI & [employer] Coding staff will review the response and follow-up if needed. Please note: Queries are made part of the Legal Health Record. If you have any questions, please contact the author of this message via ITS. Dr. Lennox Banks Sepsis is documented ED note, 01/01, but is not noted in subsequent documentation. Clarification is requested. History/Risk Factors: 51-year-old male presents to the ED for tenderness and swelling of the scrotum. The patient had fever and chills. No Reported Medical History. 12/31, H&P. 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 Pulmonary Consult 12/31: Founier's gangrene, polymicrobial, primary cultures indicating staph and strep pyogenous, the patient is post debridement, incision and drainage and the patient is currently postop day #1 Sepsis secondary to above, no hypotension, no encephalopathy Treatment: 12/30 Zosyn IVPB x 1; 12/30 Vancomycin IVPB x 1; 12/31 - 12/31 Zosyn IVPB Q8H; 12/31 01/01 Vancomycin IVPB Q12H; 01/01 - current Clindamycin IVPB Q8H; 01/02 to current Vancomycin IVPB Q8H. Please clarify if the Sepsis is: [ ] Sepsis confirmed, remains under treatment [ ] Sepsis confirmed, resolved [ ] Sepsis ruled out [ ] Other condition, please specify [ ] Unable to determine (Template Last Revised: September 2020) MTDD
[2022-01-02 16:16] LABS: Glucose,Whole Blood 126 mg/dL (75-99)
[2022-01-02 20:28] LABS: Glucose,Whole Blood 148 mg/dL (75-99)
[2022-01-02] MEDS ORDERED: VANCOMYCIN TROUGH DUE 1 EACH MISC MISCELLANE ONE (21:00)
[2022-01-02] MEDS: VANCOMYCIN 1,750 MG in SODIUM CHLORIDE 0.9% 500 ML 500 ML IVPB SCH (22:16)
--- NOTE | 2022-01-02 22:45 | P.PN ---
Subjective Progress Note Date: 01/01/22 Principal diagnosis: scrotal gangrene and MRSA bacteremia Patient is a 51-year-old male presenting to the hospital with scrotal pain swelling redness has been diagnosed with Mario's gangrene status post extensive scrotal debridement and the patient also have MRSA bacteremia. On today's evaluation that is 01/01/2022, patient denies having any fever or any chills, patient pain to the scrotal area is currently controlled, denies any chest pain shortness of breath or cough, no abdominal pain or diarrhea Objective - Vital Signs Vital signs: Vital Signs Temp 98.4 F 01/01/22 08:00 Pulse 90 01/01/22 10:00 Resp 13 01/01/22 10:00 BP 105/74 01/01/22 10:00 Pulse Ox 100 01/01/22 10:00 FiO2 Intake & Output 12/31/21 01/01/22 01/01/22 18:59 06:59 18:59 Intake Total 1300 1700 580 Output Total 200 800 250 Balance 1100 900 330 Weight 92.986 kg 99.2 kg Intake: IV 1300 1700 580 Clindamycin 900 mg In 50 50 Dextrose 5% in Water 50 ml @ 50 mls/hr IVPB Q8HR [facility] Rx#:[id number] Piperacillin-Tazobactam 3 100 .375 gm In Sodium Chloride 0.9% 100 ml @ 25 mls/hr IVPB Q8H [facility] Rx#: [id number] Sodium Chloride 0.9% 1, 1300 280 000 ml @ 75 mls/hr IV . [id number] [facility] Rx#:[id number] Vancomycin 1,500 mg In 250 250 Sodium Chloride 0.9% 250 ml @ 125 mls/hr IVPB Q12H [facility] Rx#:[id number] Output: Urine 100 800 250 Estimated Blood Loss 100 Other: Voiding Method Urinal Indwelling Catheter Indwelling Catheter - Exam GENERAL DESCRIPTION: Middle-aged male lying in bed in no distress RESPIRATORY SYSTEM: Unlabored breathing , decreased breath sounds at bases HEART: S1 S2 regular rate and rhythm , ABDOMEN: Soft , no tenderness EXTREMITIES: No edema feet - Labs CBC & Chem 7: 01/01/22 05:48 01/02/22 05:03 Labs: Abnormal Lab Results - Last 24 Hours (Table) 12/31/21 12/31/21 12/31/21 Range/Units 18:08 18:11 18:37 RBC (4.30-5.90) m/uL Hgb (13.0-17.5) gm/dL Hct (39.0-53.0) % Lymphocytes # (1.0-4.8) k/uL Monocytes # (0-1.0) k/uL Sodium (137-145) mmol/L Carbon Dioxide (22-30) mmol/L POC Glucose (mg/dL) 51 L 56 L 146 H (75-99) mg/dL Calcium (8.4-10.2) mg/dL Magnesium (1.6-2.3) mg/dL C-Reactive Protein (<1.0) mg/dL 12/31/21 01/01/22 01/01/22 Range/Units 20:43 05:48 05:48 RBC 3.85 L (4.30-5.90) m/uL Hgb 11.6 L (13.0-17.5) gm/dL Hct 35.0 L (39.0-53.0) % Lymphocytes # 0.6 L (1.0-4.8) k/uL Monocytes # 1.1 H (0-1.0) k/uL Sodium 135 L (137-145) mmol/L Carbon Dioxide 21 L (22-30) mmol/L POC Glucose (mg/dL) 114 H (75-99) mg/dL Calcium 7.1 L (8.4-10.2) mg/dL Magnesium (1.6-2.3) mg/dL C-Reactive Protein 30.9 H (<1.0) mg/dL 01/01/22 01/01/22 Range/Units 05:48 11:31 RBC (4.30-5.90) m/uL Hgb (13.0-17.5) gm/dL Hct (39.0-53.0) % Lymphocytes # (1.0-4.8) k/uL Monocytes # (0-1.0) k/uL Sodium (137-145) mmol/L Carbon Dioxide (22-30) mmol/L POC Glucose (mg/dL) 148 H (75-99) mg/dL Calcium (8.4-10.2) mg/dL Magnesium 2.5 H (1.6-2.3) mg/dL C-Reactive Protein (<1.0) mg/dL Microbiology - Last 24 Hours (Table) 12/31/21 07:26 Urine Culture - Final Urine,Voided 12/31/21 16:41 Anaerobic Culture - Preliminary Scrotum 12/31/21 16:41 Wound Culture - Preliminary Other - Other 12/31/21 16:41 Anaerobic Culture - Preliminary Scrotum 12/31/21 16:41 Wound Culture - Preliminary Other - Other 12/30/21 20:42 Blood Culture Gram Stain - Preliminary Blood Blood Culture - Preliminary Staphylococcus aureus Strep pyogenes (grp a) Staphylococcus epidermidis 12/30/21 20:00 Gram Stain - Preliminary Groin Wound Culture - Preliminary Strep pyogenes (grp a) Presumptive MRSA 12/30/21 20:00 Blood Culture - Preliminary Blood No Growth after 24 hours 12/30/21 20:42 Blood Culture - Final Blood Assessment and Plan (1) Abscess of scrotum Current Visit: Yes Status: Acute Code(s): N49.2 - INFLAMMATORY DISORDERS OF SCROTUM SNOMED Code(s): 46708410 Plan: 1patient presented to hospital with sepsis this patient with a fever elevated white count tachycardia secondary to extensive scrotal cellulitis/Mario's gangrene in this patient was status post extensive debridement and drainage of the scrotal abscess. 2local cultures finalized with MRSA and strep. 3patient did have MRSA bacteremia. 4patient to continue with vancomycin and clindamycin 5blood cultures will be repeated document clearance of bacteremia. Time with Patient: Less than 30
--- NOTE | 2022-01-02 22:46 | P.PN ---
Subjective Progress Note Date: 01/02/22 Principal diagnosis: scrotal gangrene and MRSA bacteremia Patient is a 51-year-old male presenting to the hospital with scrotal pain swelling redness has been diagnosed with Mario's gangrene status post extensive scrotal debridement and the patient also have MRSA bacteremia. On today's evaluation that is 01/02/2022, patient remains to be afebrile, patient denies any pain to the scrotal area , the patient denies any chest pain shortness of breath or cough, no abdominal pain or diarrhea Objective - Vital Signs Vital signs: Vital Signs Temp 98.3 F 01/02/22 07:38 Pulse 89 01/02/22 07:38 Resp 17 01/02/22 08:00 BP 116/68 01/02/22 07:38 Pulse Ox 99 01/02/22 07:38 FiO2 Intake & Output 01/01/22 01/02/22 01/02/22 18:59 06:59 18:59 Intake Total 1080 490 180 Output Total 2800 2325 1225 Balance -[facility]7 -0136 -0619 Intake: IV 630 250 Clindamycin 900 mg In 100 Dextrose 5% in Water 50 ml @ 50 mls/hr IVPB Q8HR [facility] Rx#:[id number] Sodium Chloride 0.9% 1, 280 000 ml @ 75 mls/hr IV . [id number] [facility] Rx#:[id number] Vancomycin 1,500 mg In 250 250 Sodium Chloride 0.9% 250 ml @ 125 mls/hr IVPB Q12H [facility] Rx#:[id number] Oral 450 240 180 Output: Urine 2800 2325 1225 Other: Voiding Method Indwelling Catheter Indwelling Catheter Indwelling Catheter - Exam GENERAL DESCRIPTION: Middle-aged male lying in bed in no distress RESPIRATORY SYSTEM: Unlabored breathing , decreased breath sounds at bases HEART: S1 S2 regular rate and rhythm , ABDOMEN: Soft , no tenderness : Scrotal wound is currently dressed EXTREMITIES: No edema feet - Labs CBC & Chem 7: 01/01/22 05:48 01/02/22 05:03 Labs: Abnormal Lab Results - Last 24 Hours (Table) 01/01/22 01/01/22 01/02/22 Range/Units 16:18 20:53 07:22 POC Glucose (mg/dL) 163 H 167 H 149 H (75-99) mg/dL 01/02/22 Range/Units 11:18 POC Glucose (mg/dL) 216 H (75-99) mg/dL Microbiology - Last 24 Hours (Table) 12/30/21 20:42 Blood Culture Gram Stain - Preliminary Blood Blood Culture - Preliminary Presumptive MRSA Strep pyogenes (grp a) Staphylococcus epidermidis 12/31/21 16:41 Gram Stain - Preliminary Other - Other Wound Culture - Preliminary Presumptive MRSA Strep pyogenes (grp a) 12/31/21 16:41 Gram Stain - Preliminary Other - Other Wound Culture - Preliminary Strep pyogenes (grp a) 12/30/21 20:00 Gram Stain - Preliminary Groin Wound Culture - Preliminary Strep pyogenes (grp a) Methicillin resist S. aureus 01/01/22 05:48 Blood Culture - Preliminary Blood No Growth after 24 hours 12/30/21 20:00 Blood Culture - Preliminary Blood No Growth after 48 hours 12/31/21 07:26 Urine Culture - Final Urine,Voided Assessment and Plan (1) Abscess of scrotum Current Visit: Yes Status: Acute Code(s): N49.2 - INFLAMMATORY DISORDERS OF SCROTUM SNOMED Code(s): 87547601 Plan: 1patient presented to hospital with sepsis this patient with a fever elevated white count tachycardia secondary to extensive scrotal cellulitis/Mario's gangrene in this patient was status post extensive debridement and drainage of the scrotal abscess. 2local cultures finalized with MRSA and strep. 3patient did have MRSA bacteremia, blood culture has been repeated document clearance of bacteremia 4patient to continue with vancomycin and clindamycin , patient will need IV antibiotic on discharge Time with Patient: Less than 30
[2022-01-03] MEDS: ACETAMINOPHEN TAB 325 MG TAB PO PRN (00:56)
[2022-01-03] MEDS: SODIUM CHLORIDE 0.9% 1,000 ML IV SCH ×2 (05:30→17:02)
[2022-01-03] MEDS: VANCOMYCIN 1,750 MG in SODIUM CHLORIDE 0.9% 500 ML 500 ML IVPB SCH ×3 (05:30→22:04)
[2022-01-03 07:00] LABS: Glucose,Whole Blood 95 mg/dL (75-99)
--- NOTE | 2022-01-03 07:28 | P.PN ---
Subjective Progress Note Date: 01/03/22 In the hospital with Judson's gangrene of the scrotum, status post radical debridement on Friday. Dressing was changed yesterday. The wound looks good. The erythema has subsided. He did have fever last night but I suspect he is establishing immune response. His lower extremity on the left has some swe lling. He did have a negative vascular ultrasound. Uncertain as to why this is. I'll have orthopedics see the patient. We'll change the dressing later today. Objective - Vital Signs Vital signs: Vital Signs Temp 101.3 F H 01/03/22 02:42 Pulse 109 H 01/03/22 00:54 Resp 15 01/03/22 00:54 BP 122/62 01/03/22 00:54 Pulse Ox 97 01/03/22 00:54 FiO2 Intake & Output 01/02/22 01/03/22 01/03/22 18:59 06:59 18:59 Intake Total 360 1275 Output Total 1225 4000 Balance -150 -5586 Intake: IV 775 Clindamycin 900 mg In 50 Dextrose 5% in Water 50 ml @ 50 mls/hr IVPB Q8HR [facility] Rx#:[id number] Sodium Chloride 0.9% 1, 725 000 ml @ 75 mls/hr IV . [id number] [facility] Rx#:[id number] Intake, IV Titration 500 Amount Vancomycin 1,750 mg In 500 Sodium Chloride 0.9% 500 ml 500 ml @ 167 mls/hr IVPB Q8H [facility] Rx#: [id number] Oral 360 Output: Urine 1225 4000 Other: Voiding Method Indwelling Catheter Indwelling Catheter - Labs CBC & Chem 7: 01/01/22 05:48 01/02/22 05:03 Labs: Abnormal Lab Results - Last 24 Hours (Table) 01/02/22 01/02/22 01/02/22 Range/Units 11:18 16:14 20:26 POC Glucose (mg/dL) 216 H 126 H 148 H (75-99) mg/dL Microbiology - Last 24 Hours (Table) 01/02/22 05:03 Blood Culture - Preliminary Blood No Growth after 24 hours 12/30/21 20:00 Blood Culture - Preliminary Blood No Growth after 72 hours 12/30/21 20:42 Blood Culture Gram Stain - Preliminary Blood Blood Culture - Preliminary Presumptive MRSA Strep pyogenes (grp a) Staphylococcus epidermidis 12/31/21 16:41 Gram Stain - Preliminary Other - Other Wound Culture - Preliminary Presumptive MRSA Strep pyogenes (grp a) 12/31/21 16:41 Gram Stain - Preliminary Other - Other Wound Culture - Preliminary Strep pyogenes (grp a) 12/30/21 20:00 Gram Stain - Preliminary Groin Wound Culture - Preliminary Strep pyogenes (grp a) Methicillin resist S. aureus 01/01/22 05:48 Blood Culture - Preliminary Blood No Growth after 24 hours
[2022-01-03] MEDS: INSULIN ASPART (NovoLOG) 100 UNIT/ML VIAL SQ SCH ×4 (08:43→22:11)
[2022-01-03] MEDS: ENOXAPARIN 40 MG/0.4 ML SYRINGE SQ SCH (09:35)
[2022-01-03] MEDS: MULTIVITAMINS, THERA 1 EACH TAB PO SCH (09:35)
[2022-01-03 09:45] LABS: African American GFR (CKD) 114.2 (60.0-200.0); Non-African American GFR(CKD) 98.5 (60.0-200.0)
--- NOTE | 2022-01-03 10:34 | P.CNOR ---
History of Present Illness - [facility] Consult date: 01/03/22 Consult reason: other (Left calf pain and swelling) History of present illness: Patient is pleasant 51-year-old male who we are counseled in regards to left calf pain and swelling. The patient presented to the hospital about 5 days ago when he had swelling and fevers and pain at his scrotum and his left leg. 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 He was found to have MRSA growth with MRSA sepsis and bacteremia. He has been treated appropriately with these issues and is continue management and regular packing at his scrotum. He says that over the past several days he is also had pain at his left calf. He initially had a duplex ultrasound to rule out DVT which was negative for DVT on 65. He has had erythema around his left calf posteriorly which has not been spreading. He denies any specific trauma and his left lower leg. Denies any prior problems his left lower leg. He says it very painful whenever he moves his foot towards plantarflexion. He has pain with weightbearing in his left leg. Review of Systems As stated per HPI. He had bacteremia with MRSA and recent scrotal debridement. He continues have pain in his left lower leg. He denies prior injury or trauma and his leg. 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 He does not feel his calf is making improvement. Past Medical History Past Medical History: No Reported History Additional Past Medical History / Comment(s): Status post scrotal debridement f or scrotal abscess and MRSA bacteremia and sepsis History of Any Multi-Drug Resistant Organisms: MRSA Year Discovered:: 12/31/21 MDRO Source:: MRSA SCROTUM Additional Past Surgical History / Comment(s): oral surgery -- wisdom teeth Past Anesthesia/Blood Transfusion Reactions: No Reported Reaction Past Psychological History: No Psychological Hx Reported Smoking Status: Never smoker Past Alcohol Use History: Occasional Past Drug Use History: None Reported Medications and Allergies Home Medications Medication Instructions Recorded Confirmed Type Multivitamins, Thera [Multivitamin 1 tab PO DAILY 12/30/21 12/30/21 History (formulary)] Allergies Allergy/AdvReac Type Severity Reaction Status Date / Time lactose AdvReac Diarrhea Verified 12/30/21 21:17 Physical Examination Osteopathic Statement: *. No significant issues noted on an osteopathic structural exam other than those noted in the History and Physical/Consult. - Ankle & Foot left Ankle appearance: swelling (At his left calf there is some erythema posteriorly and outlined about 25 x 10 cm in size. There is diffuse swelling. He is tender from the mid calf down to the distal third of the calf. Positive Homans sign. Capillary refill is less than 2 seconds. Pulses are intact.), other (His left tibia is nontender anteriorly. There is no tenderness at his knee years ankle specifically. Pain is primarily soft tissue in his calf from the midportion to the distal third. There is nontender over the Achilles tendon. Nontender his knee) Ankle pain worse with weight bearing: Yes (He has pain with any sort of plantar flexion at his left foot and ankle. A) Results Ultrasound for DVT on his left lower extremity from 65 was negative for DVT - Labs Labs: Abnormal Lab Results - Last 24 Hours (Table) 01/02/22 01/02/22 01/02/22 Range/Units 11:18 16:14 20:26 POC Glucose (mg/dL) 216 H 126 H 148 H (75-99) mg/dL Microbiology - Last 24 Hours (Table) 01/01/22 05:48 Blood Culture - Preliminary Blood No Growth after 48 hours 01/02/22 05:03 Blood Culture - Preliminary Blood No Growth after 24 hours 12/30/21 20:00 Blood Culture - Preliminary Blood No Growth after 72 hours 12/30/21 20:42 Blood Culture Gram Stain - Preliminary Blood Blood Culture - Preliminary Presumptive MRSA Strep pyogenes (grp a) Staphylococcus epidermidis 12/31/21 16:41 Gram Stain - Preliminary Other - Other Wound Culture - Preliminary Presumptive MRSA Strep pyogenes (grp a) 12/31/21 16:41 Gram Stain - Preliminary Other - Other Wound Culture - Preliminary Strep pyogenes (grp a) 12/30/21 20:00 Gram Stain - Preliminary Groin Wound Culture - Preliminary Strep pyogenes (grp a) Methicillin resist S. aureus H & H 12/30/21 12/31/21 01/01/22 Range/Units 20:00 06:08 05:48 Hgb 15.3 14.0 11.6 L (13.0-17.5) gm/dL Hct 46.5 43.1 35.0 L (39.0-53.0) % Coagulation 12/30/21 Range/Units 20:00 INR 1.1 (<1.2) Result Diagrams: 01/01/22 05:48 01/03/22 05:21 Assessment and Plan Assessment: Left calf pain and swelling with erythema, acute Left scrotal MRSA abscess status post irrigation and debridement POD#3 with Fourniers disease MRSA bacteremia Plan: Left calf pain and swelling with erythema, acute Left scrotal MRSA abscess status post irrigation and debridement POD#3 with Fourniers disease MRSA bacteremia Is difficult to determine the specific etiology of the patient's calf issues. His initial ultrasound of his left lower extremity for DVT was negative on 65. I think a new ultrasound of his left calf to determine if there is any fluid collection or abscess would be useful as well as x-rays to understand that bony makeup to determine if there is any bony involvement. An MRI would give us the best picture of the soft tissue at his lower extremity and help determine if there is other soft tissue injury at the area and we'll order MRI for this. He is continued his antibiotic regimen and is status post irrigation and debrid ement of the scrotal abscess. He is continuing regular packing and I think is appropriate. We will continue to follow along with you and make determinations based on further workup as testing results become available.
[2022-01-03] MEDS: PANTOPRAZOLE 40 MG/10 ML VIAL IV SCH (10:46)
--- NOTE | 2022-01-03 11:01 | XR ---
EXAMINATION TYPE: XR tibia fibula LT DATE OF EXAM: 01/03/2022 COMPARISON: NONE INDICATION: Pain and swelling TECHNIQUE: 2 views of the left tibia/fibula. FINDINGS: No definite acute fracture line identified. No gross lytic or sclerotic bone lesion. No soft tissue g as identified. IMPRESSION: As above.
[2022-01-03] MEDS: CLINDAMYCIN 900 MG in DEXTROSE 5% IN WATER 50 ML IVPB SCH ×6 (11:05→23:03)
[2022-01-03 11:17] LABS: Glucose,Whole Blood 127 mg/dL (75-99)
--- NOTE | 2022-01-03 12:16 | US ---
EXAMINATION TYPE: US extremity nonvasc mass LT DATE OF EXAM: 01/03/2022 COMPARISON: X-ray performed earlier the same day CLINICAL HISTORY: Ultrasound of left lower leg to evaluate for gastr. mass on left calf and pain, kno wn abscess in right groin Large complex fluid collection within left calf that is not vascular, unknown etiology, patient is elizondo ving MRI today of area IMPRESSION: Complex cystic structure is seen at the area of interest in the left calf, incompletely characterized by this ultrasound. Further enhanced CT scan or MRI assessment can be considered.
[2022-01-03] MEDS: HYDROmorphone 1 MG/ML 1 ML SYRINGE IVP PRN ×2 (12:43→23:03)
--- NOTE | 2022-01-03 13:01 | CDI ---
Documentation Clarification Form Date: 01/02/2022 03:11:30 PM From: Chayito Ayoub RN CCDS Admit Date: 12/30/2021 08:51:00 PM Patient Name: Jarvis Bhat Visit Number: [id number] Discharge Date: ATTENTION: The Clinical Documentation Specialists (CDI) and [facility] Coding Staff appreciate your assistance in clarifying documentation. Please respond to the clarification below the line at the bottom and electronically sign. The CDI & [facility] Coding staff will review the response and follow-up if needed. Please note: Queries are made part of the Legal Health Record. If you have any questions, please contact the author of this message via ITS. Dr. Lennox Banks Sepsis is documented ED note, 01/01, but is not noted in subsequent documentation. Clarification is requested. History/Risk Factors: 51-year-old male presents to the ED for tenderness and swelling of the scrotum. The patient had fever and chills. No Reported Medical History. 12/31, H&P. 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 Pulmonary Consult 12/31: Founier's gangrene, polymicrobial, primary cultures indicating staph and strep pyogenous, the patient is post debridement, incision and drainage and the patient is currently postop day #1 Sepsis secondary to above, no hypotension, no encephalopathy Treatment: 12/30 Zosyn IVPB x 1; 12/30 Vancomycin IVPB x 1; 12/31 - 12/31 Zosyn IVPB Q8H; 12/31 01/01 Vancomycin IVPB Q12H; 01/01 - current Clindamycin IVPB Q8H; 01/02 to current Vancomycin IVPB Q8H. Please clarify if the Sepsis is: [ ] Sepsis confirmed, remains under treatment [ ] Sepsis confirmed, resolved [ ] Sepsis ruled out [ ] Other condition, please specify [ ] Unable to determine (Template Last Revised: September 2020) MTDD
--- NOTE | 2022-01-03 13:29 | P.PN ---
Progress Note - Text Progress Note Date: 01/03/22 The patient's a dressing was changed and he soaked in a sitz bath this afternoon. The wound continues to slowly improve. Dr. Bravo of orthopedics saw the patient for the left lower leg swelling and erythema. Further testing is been undertaken to try to assess the cause of this problem. That is very possible the cause of his fever last night.
[2022-01-03 17:00] LABS: Glucose,Whole Blood 124 mg/dL (75-99)
[2022-01-03 21:07] LABS: Glucose,Whole Blood 241 mg/dL (75-99)
[2022-01-03 22:12] LABS: Glucose,Whole Blood 250 mg/dL (75-99)
--- NOTE | 2022-01-04 03:07 | MR ---
EXAMINATION TYPE: MR lower leg LT wo con DATE OF EXAM: 01/03/2022 COMPARISON: None HISTORY: Left lower extremity calf pain and swelling redness, marked lump on mid posterior calf, ace ent has fourniers ganagrene at scrotum Multiplanar multi echo imaging of the lower legs was performed with no contrast. FINDINGS: There is a complex mass within the left calf muscle of the posterior left lower leg. This measures 20 cm in length and approximately 7 x 5 cm in diameter. There is a central multiseptated cystic compone nt. This has increased signal on T2 images and could be a large calf abscess. There is significant re placement of the soleus and gastrocnemius muscle by this large complex mass. The tibia and fibula appear intact. No fracture. No evidence of focal bone destruction. There is some complex skin thickening over the posterior left calf. IMPRESSION: Large complex mass in the left calf muscle that could be intramuscular abscess. Tumor not excluded. H ematoma not excluded. Also consider calf muscle necrosis.
[2022-01-04] MEDS ORDERED: VANCOMYCIN TROUGH DUE 1 EACH MISC MISCELLANE ONE (05:00)
[2022-01-04] MEDS: VANCOMYCIN 1,750 MG in SODIUM CHLORIDE 0.9% 500 ML 500 ML IVPB SCH ×3 (05:22→23:13)
[2022-01-04] MEDS: ACETAMINOPHEN TAB 325 MG TAB PO PRN (05:25)
[2022-01-04 06:47] LABS: African American GFR (CKD) >90 (>60 ml/min/1.73 sqM); Non-African American GFR(CKD) >90 (>60 ml/min/1.73 sqM)
[2022-01-04 07:39] LABS: Glucose,Whole Blood 121 mg/dL (75-99)
--- NOTE | 2022-01-04 08:00 | P.PN ---
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 He has undergone an extensive debridement. He continues to improve. Her wound looks good. He is on dressing changes twice daily. He has a fluid collection in the left calf of indeterminate etiology. This is to be drained by Dr. Bravo today. We will continue with antibiotics and dressing changes. Objective - Vital Signs Vital signs: Vital Signs Temp 97.9 F 01/04/22 07:40 Pulse 86 01/04/22 07:40 Resp 16 01/04/22 07:40 BP 128/77 01/04/22 07:40 Pulse Ox 99 01/04/22 07:40 FiO2 Intake & Output 01/03/22 01/04/22 01/04/22 18:59 06:59 18:59 Intake Total 540 Output Total 3600 4400 Balance -3060 -4400 Intake: Oral 540 Output: Urine 3600 4400 Other: Voiding Method Indwelling Catheter Indwelling Catheter - Labs CBC & Chem 7: 01/01/22 05:48 01/04/22 05:25 Labs: Abnormal Lab Results - Last 24 Hours (Table) 01/03/22 01/03/22 01/03/22 Range/Units 11:15 16:58 21:05 POC Glucose (mg/dL) 127 H 124 H 241 H (75-99) mg/dL 01/03/22 01/04/22 Range/Units 22:06 07:38 POC Glucose (mg/dL) 250 H 121 H (75-99) mg/dL Microbiology - Last 24 Hours (Table) 01/02/22 05:03 Blood Culture - Preliminary Blood No Growth after 48 hours 12/30/21 20:00 Blood Culture - Preliminary Blood No Growth after 96 hours 12/30/21 20:42 Blood Culture Gram Stain - Final Blood Blood Culture - Final Methicillin resist S. aureus Strep pyogenes (grp a) Staphylococcus epidermidis Bacillus species Not Anthracis 12/31/21 16:41 Anaerobic Culture - Preliminary Scrotum 12/31/21 16:41 Anaerobic Culture - Preliminary Scrotum 12/31/21 16:41 Gram Stain - Final Other - Other Wound Culture - Final Methicillin resist S. aureus Strep pyogenes (grp a) 01/01/22 05:48 Blood Culture - Preliminary Blood No Growth after 48 hours
[2022-01-04 09:43] VITALS: BMI 25.9
[2022-01-04] MEDS: SODIUM CHLORIDE 0.9% 1,000 ML IV SCH ×3 (10:57→23:20)
[2022-01-04] MEDS: INSULIN ASPART (NovoLOG) 100 UNIT/ML VIAL SQ SCH ×3 (10:58→17:22)
[2022-01-04] MEDS: ENOXAPARIN 40 MG/0.4 ML SYRINGE SQ SCH (11:07)
[2022-01-04] MEDS: PANTOPRAZOLE 40 MG/10 ML VIAL IV SCH (11:07)
[2022-01-04] MEDS: MULTIVITAMINS, THERA 1 EACH TAB PO SCH (11:07)
[2022-01-04] MEDS: CLINDAMYCIN 900 MG in DEXTROSE 5% IN WATER 50 ML IVPB SCH ×4 (11:12→16:37)
[2022-01-04 11:20] LABS: Glucose,Whole Blood 78 mg/dL (75-99)
--- NOTE | 2022-01-04 11:55 | P.PN ---
Progress Note - Text Progress Note Date: 01/04/22 Orthopedics: History of present illness: Patient is a very pleasant 51-year-old male who is seen and examined at bedside for follow up evaluation of his left lower extremity. Since being seen and examined yesterday, he has not had any significant improvement of his symptoms overall. He continues to have pain, erythema, warmth, and swelling at the left calf. He has been avoiding any excessive activities with the left lower extremity. He does have increased pain with active range of motion of the left foot and ankle most significant with dorsiflexion and extension of the toes. He denies any specific injury to his left lower extremity. He underwent multiple imaging modalities yesterday which showed evidence of fluid collection, most likely abscess, at the left calf. He is currently nothing by mouth status anticipation for surgical intervention to be performed later this afternoon. 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 Patient does not report any other significant medical history. Physical Exam: Patient is awake, alert, and oriented 3 Vital signs stable Good chest excursion with deep inspiration and expiration Abdomen soft nontender Evidence of erythema, warmth to palpation, and swelling over the left calf most significant at the mid to distal calf Patient is able to perform active range of motion of the left ankle with dorsiflexion and plantar flexion but does have increased pain while doing so most significantly with dorsiflexion Patient is able to wiggle toes of the left foot that has increased pain with toe extension Neurovascular intact left lower extremity White catheter intact Pertinent studies: MRI of the left lower extremity taken on 01/04/2022: Large complex mass in the left calf muscle measuring 20 cm in length by approximately 7.5 cm x 5 cm in diameter with central multiseptated cystic component that could be intramuscular abscess in which tumor or hematoma is not excluded; also consider calf muscle necrosis X-rays of the left tibia and fibula taken on 01/03/2022: No acute fracture identified; no gross lytic or sclerotic bone lesion; no soft tissue gas identified Ultrasound of the left lower extremity taken on 01/03/2022: Complex cystic structure is seen in the area of interest of the left calf incompletely characterized by this ultrasound Assessment: Left lower extremity leg pain Fluid collection of the left calf, likely abscess Difficulty with ambulation left lower extremity due to leg pain 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 Patient continues to experience pain, swelling, erythema, and difficulty ambulation on his left lower extremity. Multiple imaging modalities were taken of his left lower extremity yesterday. He does have evidence of a large complex mass in the left calf muscle measuring 20 cm in length by approximately 7.5 cm x 5 cm in diameter with central multiseptated cystic component that could be intramuscular abscess in which tumor or hematoma is not excluded; also consider calf muscle necrosis. He is currently nothing by mouth status anticipation for surgical intervention today. He is scheduled for an incision and drainage of the left calf to be performed by Dr. Sourav Bravo. We discussed he should avoid any excessive activities with his left lower extremity. He may continue with treatment as prescribed as needed by urology for Mario's gangrene of the scrotum. We will continue to follow the patient. 2. Patient will continue be seen examined by urology and patient will continue with care per urology's recommendations. 3. We will plan for consultation with medicine for medical management.
[2022-01-04] MEDS: HYDROmorphone 1 MG/ML 1 ML SYRINGE IVP PRN ×2 (12:54→16:37)
--- NOTE | 2022-01-04 15:13 | P.CONS ---
History of Present Illness - Reason for Consult Consult date: 01/04/22 - Chief Complaint scrotal abscess, leg abscess - History of Present Illness 51-year-old man with no prior medical history presented with swelling and pain of the scrotum. Medicine was consulted by urology service for medical management. Patient has had a six-day hospital course in which she was seen by urology service for Mario gangrene and is now status post debridement on 12/31. Cultures from that operation grew strep pyogenes as well as MRSA. Infectious disease was consulted for facilitation of IV antibiotics, currently being treated with vancomycin and clindamycin. Patient subsequently grew bacteria in the blood including MRSA, strep Pyogenes, staph epidermidis, bacillus species. Patient's scrotal wound has been healing well, however, his hospital course was complicated by leg pain up to the calf with area of erythema on the lower leg on the daphne-medial aspect. He subsequent had imaging including lower extremity ultrasound as well as MRI which showed a complex fluid collection in the leg. At this point orthopedic surgery service was consulted for debridement, which is pending at the time of this note. Patient himself has recovered reportedly well, has no complaints at this time other than leg pain. Notably he denied: Fevers, chills, nausea, vomiting, chest pain, palpitations, syncope, presyncope, cough, dyspnea, abdominal pain, constipation, diarrhea, dysuria, dyschezia, numbness/weakness of extremities. Upon my evaluation, patient is afebrile, 118/68, heart rate 87, 99% on room air. No CBC or BMP from today, however, creatinine from today shows a value of 0.83. Previously significant labs included mild anemia down to 11.6, CRP of 30.9. Vancomycin trough today is 18.1. Imaging from this hospitalization included lower extremity venous Doppler, tibial/fibula x-ray, lower extremity ultrasound of the left leg, lower extremity MRI. Venous Doppler was negative for DVT in the left leg. Tibial/fibula x-ray does not demonstrate any fracture or soft tissue gas of the left leg. Left lower ultrasound, nonvascular, shows complex cystic structure in the area of the left calf. MRI confirms that this is a large complex mass in the left calf muscle which could be an intramuscular abscess versus tumor versus hematoma versus muscle necrosis. All Systems reviewed and pertinent positives and negatives noted in HPI, all other symptoms are negative Gen: in no apparent distress, resting comfortably in bed Eyes: PERRL, no scleral injection or icterus HENT: normocephalic, atraumatic, good hearing acuity, moist mucous membranes Neck: no tracheal deviation, full range of motion Resp: good air exchange, breathing comfortably with no accessory muscle use, no tactile fremitus CVS: good distal perfusion x 4, no pitting edema GI: soft, NTTP, ND, no hepatosplenomegaly : no suprapubic tenderness, no CVAT, garcia catheter not present MSK: no clubbing, no cyanosis, no noted contractures of extremities Skin: no noted rashes, petechiae; temperature of skin is appropriate Neuro: moving all extremities without signs of weakness, CN II-XII intact Psych: cooperative, euthymic mood, insight and judgment intact Labs and imaging as above Assessment/plan: Sepsis secondary to Mario gangrene and left leg abscess Polymicrobial bacteremia -Continue vancomycin, clindamycin per ID consultation, appreciate the recommendations -Patient will need PICC line for anticipated IV antibiotic course -Pending orthopedic debridement -Repeat CBC, BMP, magnesium in the morning -Repeat CRP in the morning -Tylenol, Dilaudid when necessary for pain control -PPI daily -Nausea control -DVT prophylaxis with Lovenox 40 mg subcu daily Prediabetes -Low-dose sliding scale insulin for elevated sugars, A1c is 5.9% Patient is full code Past Medical History Past Medical History: No Reported History Additional Past Medical History / Comment(s): Status post scrotal debridement for scrotal abscess and MRSA bacteremia and sepsis History of Any Multi-Drug Resistant Organisms: MRSA Year Discovered:: 12/31/21 MDRO Source:: MRSA SCROTUM Additional Past Surgical History / Comment(s): oral surgery -- wisdom teeth Past Anesthesia/Blood Transfusion Reactions: No Reported Reaction Past Psychological History: No Psychological Hx Reported Smoking Status: Never smoker Past Alcohol Use History: Occasional Past Drug Use History: None Reported Medications and Allergies Home Medications Medication Instructions Recorded Confirmed Type Multivitamins, Thera [Multivitamin 1 tab PO DAILY 12/30/21 12/30/21 History (formulary)] Allergies Allergy/AdvReac Type Severity Reaction Status Date / Time lactose AdvReac Diarrhea Verified 12/30/21 21:17 Physical Exam Osteopathic Statement: *. No significant issues noted on an osteopathic structural exam other than those noted in the History and Physical/Consult. Vitals: Vital Signs Temp Pulse Pulse Resp BP Pulse Ox 01/04/22 13:00 98.0 F 87 16 118/68 99 01/04/22 07:40 97.9 F 86 16 128/77 99 01/04/22 01:43 99.1 F 84 16 127/72 98 01/03/22 20:00 98.7 F 93 18 135/73 92 L Intake and Output 01/04/22 01/04/22 01/04/22 06:59 14:59 22:59 Output Total 4400 Balance -4400 Output: Urine 4400 Other: Voiding Method Indwelling Catheter Weight 99.2 kg Results CBC & Chem 7: 01/01/22 05:48 01/04/22 05:25 Labs: Abnormal Lab Results - Last 24 Hours (Table) 01/03/22 01/03/22 01/03/22 Range/Units 16:58 21:05 22:06 POC Glucose (mg/dL) 124 H 241 H 250 H (75-99) mg/dL 01/04/22 Range/Units 07:38 POC Glucose (mg/dL) 121 H (75-99) mg/dL Microbiology - Last 24 Hours (Table) 12/31/21 16:41 Gram Stain - Final Other - Other Wound Culture - Final Strep pyogenes (grp a) Methicillin resist S. aureus 01/01/22 05:48 Blood Culture - Preliminary Blood No Growth after 72 hours 01/02/22 05:03 Blood Culture - Preliminary Blood No Growth after 48 hours 12/30/21 20:00 Blood Culture - Preliminary Blood No Growth after 96 hours 12/30/21 20:42 Blood Culture Gram Stain - Final Blood Blood Culture - Final Methicillin resist S. aureus Strep pyogenes (grp a) Staphylococcus epidermidis Bacillus species Not Anthracis 12/31/21 16:41 Anaerobic Culture - Preliminary Scrotum 12/31/21 16:41 Anaerobic Culture - Preliminary Scrotum 12/31/21 16:41 Gram Stain - Final Other - Other Wound Culture - Final Methicillin resist S. aureus Strep pyogenes (grp a)
[2022-01-04 16:41] LABS: Glucose,Whole Blood 81 mg/dL (75-99)
[2022-01-04] MEDS ORDERED: IV FLUID CONTINUATION 800 ML IV ONE (17:35)
[2022-01-04] MEDS ORDERED: DEXAMETHASONE SOD PHOSPHATE 4 MG/ML 1 ML VIAL IVP ONE (20:02)
[2022-01-04] MEDS ORDERED: ONDANSETRON 4 MG/2 ML VIAL IVP ONE (20:05)
[2022-01-04] MEDS ORDERED: KETOROLAC 15 MG/ML 1 ML VIAL ONE (20:07)
[2022-01-04] MEDS ORDERED: PROPOFOL 10 MG/ML 20 ML VIAL IV ONE (20:07)
[2022-01-04] MEDS ORDERED: SUCCINYLCHOLINE CHLORIDE 100 MG/5 ML SYR IV ONE (20:07)
[2022-01-04] MEDS ORDERED: HYDROmorphone (PF) 1 MG/ML ONE (20:07)
[2022-01-04] MEDS ORDERED: MIDAZOLAM 2 MG/2 ML VIAL ONE (20:07)
[2022-01-04] MEDS ORDERED: fentaNYL (PF) 50 MCG/ML 2 ML AMP ONE (20:07)
[2022-01-04] MEDS ORDERED: ceFAZolin 3,000 MG in SODIUM CHLORIDE 0.9% IRRIGATIO 3,000 ML IRRIGATION ONE (20:35)
[2022-01-04] MEDS ORDERED: LACTATED RINGERS 1,000 ML IV ONE (21:27)
--- NOTE | 2022-01-04 21:34 | P.OP ---
Date of Procedure: 01/04/22 Preoperative Diagnosis: Left lower leg deep abscess, deep and intramuscular at the gastrocnemius Left lower lip pain Recent scrotal abscess Postoperative Diagnosis: Left lower leg deep abscess, deep and intramuscular at the gastrocnemius Left lower lip pain Recent scrotal abscess Anesthesia: GETA Pathology: other (Deep wound cultures 2 sent for Gram stain aerobic and anaerobic fungal and AFB and tuberculosis cultures) Condition: stable Disposition: PACU Description of Procedure: BRIEF OPERATIVE NOTE Preoperative Diagnosis: Left lower leg deep abscess, deep and intramuscular at the gastrocnemius Left lower leg pain Recent scrotal abscess Postoperative Diagnosis: Same Procedure: Deep irrigation and debridement with excisional debridement of left lower leg abscess, deep tissue adjacent to the fibula and tibia the and entering within the intramuscular substance of the medial gastrocnemius Surgeon: Dr. Bravo Wire Inspector: None Anesthesia: General anesthesia Estimated blood loss: Less than 20 mL, with approximately 250 mL of pus Tourniquet time: None Specimen: Deep wound cultures sent to pathology and microbiology for Gram stain aerobic anaerobic cultures AFB and fungal and tuberculosis Complications: None apparent Components implanted: No hardware was placed but I did place deep iodoform gauze Disposition: To recovery room in good stable condition. OPERATIVE INDICATIONS The patient has been having issues in the past couple weeks at his left calf. He'll worsening about a week ago and also had significant issues with swelling a t his scrotum. He says that he had to palpate pebble and his scrotum and it developed an abscess and he presented to the hospital. He initially had significant troubles at his scrotal area and was having an scrotal abscess and underwent surgical intervention for this. He underwent continue treatment with local wound care as well as IV antibiotics. During this time he continued have some pain in his left calf. He was not having any neurologic change was having persistent soreness. We're counseled in this regard. He is found have some cellulitis but significant pain and tenderness at his left calf. His initial evaluation with duplex ultrasound was negative for any evidence of DVT. I felt that there was another issue going on and with his history I felt that we needed further workup which she went through further ultrasound and MRI imaging. This showed significant fluid collection at his deep musculature into his calf and at the deep space deep to his calf at his left lower leg. I felt this was an abscess given his clinical picture. I felt he needed to undergo formal irrigation and debridement for definitive treatment of the abscess. I discussed this with him at length and discussed risks, occasions alternatives and benefits of surgery discussed the risk of bleeding risk of further infection risk and need for further surgeries decreased loss of motion loss of function as well as the fact that the surgery may not alleviate his symptoms. Patient like to proceed with surgical intervention signed informed consent. OPERATIVE SUMMARY After discussing all the risks, patient alternatives and benefits at length, the patient elected to proceed with surgical intervention, signed informed consent, and presented for their procedure. The patient was seen and examined in the preoperative holding area and the surgical site was marked. The patient was given antibiotics and brought to the operating room. The patient was sedated and intubated by anesthesia in standard fashion. The patient was positioned on to the operating room table in a prone position with a pad under any pressure points. We were careful to pad any bony prominences and pressure points. We were careful to maintain the patient's cervical spine and good neutral alignment and position throughout. The patient was prepped and draped in a normal standard fashion, with his left lower leg free and his foot wrapped in a sleeve with Coban.. An appropriate timeout and keystone protocol performed. We were able to proceed with the surgery. I was able to palpate around the area and I could feel fullness deep to the gastrocnemius muscle both medially and laterally at the midportion of the muscle substance. I decided to take a posterior lateral approach to take advantage of the natural planes. An incision was made over the posterior lateral aspect of the lateral head of the gastrocnemius at the plane of the soleus. I was able to dissect down incise the fascia and split fascia. I was able to dissect underneath the lateral gastroc muscle. At this area I did not find any obvious pus but upon dissecting further medially there is obvious pocket and partially cystic structure which I was able to enter into with manual digital dissection. Upon this there was a great deal of purulence and pus that released from the area. I was able to further probing digitally and screwed greater than 200 mL of purulent us from the area. It did enter into the muscular substance of the medial gastroc. It was into the subcutaneous tissue as well on the medial side. He did not seem to involve the bony structures. The areas approximately 25 x 15 x 5 cm. Upon release that had significant reduction in tension along the gastrocnemius and the lower leg. I was then able to copiously irrigate the area. Any denuded tissue was excised and removed. I could good margins along the aspect of the area. The wound was copiously irrigated with 3 L of antibiotic solution. There is no further purulence there is no further pus. I felt that we could proceed with posterior. I packed the area loosely with 1 inch iodoform gauze and left portion of the gauze extending outside the incision. The fascia was partially closed at the gastrocsoleus junction. And subcutaneous tissue and the fascia was closed with PDS suture. Skin was closed with 3-0 nylon. I left a portion of the iodoform gauze outside the incision extending so that it could be pulled at later point in the postop period. I was able proceed with dressing and placed a nonadherent dressing 4 x 4's ABDs loose Kerlix and an Negrito wrap over lower leg. The patient had good capillary refill and good vascular turn his foot and toes. We did not use a tourniquet. The patient was then transferred back to his hospital bed in a supine position. They were woken up by anesthesia, extubated, and brought to the recovery room in good stable condition. The patient will be able to continue his IV antibiotics, local wound care at his scrotum, as well as local wound care at his lower leg and for appropriate postoperative care, medical management and monitoring. We will continue to follow them closely about the postoperative course.
[2022-01-04] MEDS ORDERED: BENZOCAINE/MENTHOL LOZENG 1 EACH LOZENGE MUCOUS MEM PRN (21:35)
[2022-01-04] MEDS ORDERED: NALOXONE 0.4 MG/ML 1 ML VIAL IV PRN (21:35)
[2022-01-04] MEDS ORDERED: HYDROmorphone 0.5 MG/0.5 ML SYRINGE IVP PRN (21:35)
--- NOTE | 2022-01-04 21:49 | P.PN ---
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 On today's evaluation that is 01/03/2022, patient continues to be afebrile, patient denies pain to the scrotal area is currently controlled , the patient denies any chest pain shortness of breath or cough, no abdominal pain or diarrhea, patient is complaining of pain left leg for which ortho has been consulted Objective - Vital Signs Vital signs: Vital Signs Temp 98.8 F 01/03/22 07:08 Pulse 104 H 01/03/22 07:08 Resp 21 01/03/22 07:08 BP 142/83 01/03/22 07:08 Pulse Ox 95 01/03/22 07:08 FiO2 Intake & Output 01/02/22 01/03/22 01/03/22 18:59 06:59 18:59 Intake Total 360 1275 180 Output Total 1225 4000 Balance -864 -5458 180 Intake: IV 775 Clindamycin 900 mg In 50 Dextrose 5% in Water 50 ml @ 50 mls/hr IVPB Q8HR [facility] Rx#:[id number] Sodium Chloride 0.9% 1, 725 000 ml @ 75 mls/hr IV . [id number] [facility] Rx#:[id number] Intake, IV Titration 500 Amount Vancomycin 1,750 mg In 500 Sodium Chloride 0.9% 500 ml 500 ml @ 167 mls/hr IVPB Q8H [facility] Rx#: [id number] Oral 360 180 Output: Urine 1225 4000 Other: Voiding Method Indwelling Catheter Indwelling Catheter - Exam GENERAL DESCRIPTION: Middle-aged male lying in bed in no distress RESPIRATORY SYSTEM: Unlabored breathing , decreased breath sounds at bases HEART: S1 S2 regular rate and rhythm , ABDOMEN: Soft , no tenderness : Scrotal wound is currently dressed EXTREMITIES: Left lower extremity with the area of erythema and tenderness - Labs CBC & Chem 7: 01/01/22 05:48 01/04/22 05:25 Labs: Abnormal Lab Results - Last 24 Hours (Table) 01/02/22 01/02/22 01/02/22 Range/Units 11:18 16:14 20:26 POC Glucose (mg/dL) 216 H 126 H 148 H (75-99) mg/dL Microbiology - Last 24 Hours (Table) 01/01/22 05:48 Blood Culture - Preliminary Blood No Growth after 48 hours 01/02/22 05:03 Blood Culture - Preliminary Blood No Growth after 24 hours 12/30/21 20:00 Blood Culture - Preliminary Blood No Growth after 72 hours 12/30/21 20:42 Blood Culture Gram Stain - Preliminary Blood Blood Culture - Preliminary Presumptive MRSA Strep pyogenes (grp a) Staphylococcus epidermidis 12/31/21 16:41 Gram Stain - Preliminary Other - Other Wound Culture - Preliminary Presumptive MRSA Strep pyogenes (grp a) 12/31/21 16:41 Gram Stain - Preliminary Other - Other Wound Culture - Preliminary Strep pyogenes (grp a) 12/30/21 20:00 Gram Stain - Preliminary Groin Wound Culture - Preliminary Strep pyogenes (grp a) Methicillin resist S. aureus Assessment and Plan (1) Abscess of scrotum Current Visit: Yes Status: Acute Code(s): N49.2 - INFLAMMATORY DISORDERS OF SCROTUM SNOMED Code(s): 33979756 Plan: 1patient presented to hospital with sepsis this patient with a fever elevated white count tachycardia secondary to extensive scrotal cellulitis/Mario's gangrene in this patient was status post extensive debridement and drainage of the scrotal abscess. 2local cultures finalized with MRSA and strep. 3patient did have MRSA bacteremia, blood culture has been repeated document clearance of bacteremia 4patient currently being treated with vancomycin and clindamycin , 5-ultrasound left leg with a cystic lesion orthopedic has been consulted for further evaluation Time with Patient: Less than 30
--- NOTE | 2022-01-04 21:51 | P.PN ---
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 Patient also have a pain to the left leg ultrasound suggestive of a cystic lesion MRI is concerning for possible abscess versus hematoma On today's evaluation that is 01/04/2022, patient denies any fever or chills, patient pain to the scrotal area is currently controlled , the patient denies any chest pain shortness of breath or cough, no abdominal pain or diarrhea, patient pain left leg has slightly decreased intensity Objective - Vital Signs Vital signs: Vital Signs Temp 97.9 F 01/04/22 07:40 Pulse 86 01/04/22 07:40 Resp 16 01/04/22 07:40 BP 128/77 01/04/22 07:40 Pulse Ox 99 01/04/22 07:40 FiO2 Intake & Output 01/03/22 01/04/22 01/04/22 18:59 06:59 18:59 Intake Total 540 Output Total 3600 4400 Balance -3060 -4400 Weight 99.2 kg Intake: Oral 540 Output: Urine 3600 4400 Other: Voiding Method Indwelling Catheter Indwelling Catheter Indwelling Catheter - Exam GENERAL DESCRIPTION: Middle-aged male lying in bed in no distress RESPIRATORY SYSTEM: Unlabored breathing , decreased breath sounds at bases HEART: S1 S2 regular rate and rhythm , ABDOMEN: Soft , no tenderness : Scrotal wound is currently dressed EXTREMITIES: Left lower extremity with the area of erythema and tenderness - Labs CBC & Chem 7: 01/01/22 05:48 01/04/22 05:25 Labs: Abnormal Lab Results - Last 24 Hours (Table) 01/03/22 01/03/22 01/03/22 Range/Units 16:58 21:05 22:06 POC Glucose (mg/dL) 124 H 241 H 250 H (75-99) mg/dL 01/04/22 Range/Units 07:38 POC Glucose (mg/dL) 121 H (75-99) mg/dL Microbiology - Last 24 Hours (Table) 12/31/21 16:41 Gram Stain - Final Other - Other Wound Culture - Final Strep pyogenes (grp a) Methicillin resist S. aureus 01/01/22 05:48 Blood Culture - Preliminary Blood No Growth after 72 hours 01/02/22 05:03 Blood Culture - Preliminary Blood No Growth after 48 hours 12/30/21 20:00 Blood Culture - Preliminary Blood No Growth after 96 hours 12/30/21 20:42 Blood Culture Gram Stain - Final Blood Blood Culture - Final Methicillin resist S. aureus Strep pyogenes (grp a) Staphylococcus epidermidis Bacillus species Not Anthracis 12/31/21 16:41 Anaerobic Culture - Preliminary Scrotum 12/31/21 16:41 Anaerobic Culture - Preliminary Scrotum 12/31/21 16:41 Gram Stain - Final Other - Other Wound Culture - Final Methicillin resist S. aureus Strep pyogenes (grp a) Assessment and Plan (1) Abscess of scrotum Current Visit: Yes Status: Acute Code(s): N49.2 - INFLAMMATORY DISORDERS OF SCROTUM SNOMED Code(s): 85561832 Plan: 1patient presented to hospital with sepsis this patient with a fever elevated white count tachycardia secondary to extensive scrotal cellulitis/Mario's gangrene in this patient was status post extensive debridement and drainage of the scrotal abscess. 2local cultures finalized with MRSA and strep. 3patient did have MRSA bacteremia, blood culture has been repeated document clearance of bacteremia 4patient currently being treated with vancomycin and clindamycin , 5-patient with left leg pain ultrasound left leg with a cystic lesion, MRI has been suggestive of abscess versus hematoma patient is scheduled for surgical debridement this afternoon Time with Patient: Less than 30
[2022-01-04 22:21] LABS: Basophils # (A) 0.1 k/uL (0-0.2); Basophils % (A) 1 %; Eosinophils # (A) 0.1 k/uL (0-0.7); Eosinophils % (A) 1 %; HCT 37.9 % (39.0-53.0); Lymphocytes % (A) 5 %; MCH 29.7 pg (25.0-35.0); MCHC 31.7 g/dL (31.0-37.0); MCV 93.8 fL (80.0-100.0); Mean Platelet Volume 7.7; Monocytes # (A) 0.8 k/uL (0-1.0); Monocytes % (A) 4 %; Neutrophils # (A) 17.3 k/uL (1.3-7.7); Neutrophils % (A) 89 %; RBC 4.03 m/uL (4.30-5.90); WBC 19.5 k/uL (3.8-10.6)
[2022-01-04 22:22] LABS: Platelet Count 452 k/uL (150-450)
[2022-01-04 23:31] LABS: Glucose,Whole Blood 279 mg/dL (75-99)
[2022-01-05] MEDS: INSULIN ASPART (NovoLOG) 100 UNIT/ML VIAL SQ SCH ×5 (00:10→21:29)
[2022-01-05] MEDS: CLINDAMYCIN 900 MG in DEXTROSE 5% IN WATER 50 ML IVPB SCH ×6 (03:04→17:25)
[2022-01-05] MEDS: VANCOMYCIN 1,750 MG in SODIUM CHLORIDE 0.9% 500 ML 500 ML IVPB SCH ×3 (05:55→21:30)
[2022-01-05 07:31] LABS: Glucose,Whole Blood 207 mg/dL (75-99)
[2022-01-05] MEDS: HYDROmorphone 1 MG/ML 1 ML SYRINGE IVP PRN ×2 (08:45→13:23)
[2022-01-05] MEDS: ENOXAPARIN 40 MG/0.4 ML SYRINGE SQ SCH (08:48)
[2022-01-05] MEDS: PANTOPRAZOLE 40 MG/10 ML VIAL IV SCH (08:48)
[2022-01-05] MEDS: SENNOSIDES-DOCUSATE SODIUM 1 EACH TAB PO SCH (08:48)
[2022-01-05] MEDS: MULTIVITAMINS, THERA 1 EACH TAB PO SCH (08:48)
[2022-01-05] MEDS: SODIUM CHLORIDE 0.9% 1,000 ML IV SCH ×3 (08:49→23:30)
[2022-01-05 08:52] LABS: Basophils # (A) 0.08 X 10*3/uL (0.00-0.10); Basophils % (A) 0.5 %; Eosinophils # (A) 0.01 X 10*3/uL (0.04-0.35); Eosinophils % (A) 0.1 %; HCT 34.9 % (39.6-50.0); HGB 11.1 g/dL (13.0-17.0); Immature Grans, Automated 4.2 %; Lymphocytes # (A) 1.06 X 10*3/uL (0.90-5.00); Lymphocytes % (A) 6.2 %; MCH 28.8 pg (27.0-32.0); MCHC 31.8 g/dL (32.0-37.0); MCV 90.6 fL (80.0-97.0); Mean Platelet Volume 9.9 fL (9.5-12.2); Monocytes # (A) 0.94 X 10*3/uL (0.20-1.00); Monocytes % (A) 5.5 %; NRBC Per 100 WBC 0 /100 WBCS (0.0-0.0); Neutrophils % (A) 83.5 %; Platelet Count 430 X 10*3/uL (140-440); RBC 3.85 X 10*6/uL (4.40-5.60); RDW 13.2 % (11.5-14.5)
[2022-01-05 09:57] LABS: African American GFR (CKD) 114.2 (60.0-200.0); Anion Gap 10.5 mmol/L (10.00-18.00); BUN/Creat Ratio 15.89 Ratio (12.00-20.00); Blood Urea Nitrogen 14.3 mg/dL (9.0-27.0); C Reactive Protein 8.7 mg/dL (0.00-0.80); Calcium 7.5 mg/dL (8.7-10.3); Carbon Dioxide 22.5 mmol/L (20.0-27.5); Magnesium 2.3 mg/dL (1.5-2.4); Non-African American GFR(CKD) 98.5 (60.0-200.0); Potassium 5.2 mmol/L (3.5-5.5)
[2022-01-05 11:27] LABS: Glucose,Whole Blood 178 mg/dL (75-99)
--- NOTE | 2022-01-05 12:53 | P.PN ---
Subjective Progress Note Date: 01/05/22 Hospital course: Patient is a very pleasant 51-year-old man with no known prior medical history. He presented presented to the hospital on 12/30/21 with a chief complaint of swelling and pain of the scrotum. 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 On 01/04/22, our hospitalist team was consulted by urology services for medical management. Prior to our consult, patient had a six-day hospital course in which he was seen by urology service for Mario gangrene underwent debridement on 12/31. Cultures from that operation grew strep pyogenes as well as MRSA. Infectious disease was consulted for facilitation of IV antibiotics, and pt is currently being treated with vancomycin and clindamycin. Patient also subsequently grew bacteria in the blood including MRSA, strep Pyogenes, staph epidermidis, and bacillus species. Patient's scrotal wound has been healing well, however, his hospital course was complicated by leg pain up to the calf with area of erythema on the lower leg on the daphne-medial aspect. Patient then underwent imaging including lower extremity ultrasound as well as MRI, he was found to have a complex fluid collection in the left leg. At this point orthopedic surgery service was also consulted for debridement. On 01/04/22, patient then underwent deep irrigation and debridement with excision all debridement of left lower leg abscess including deep tissue adjacent to fibula and tibia and entering within the intramuscular's substance of the medial gastrocnemius. Patient currently remains on IV antibiotics with Unasyn and vancomycin and being followed closely by infectious disease, urology, orthopedic surgery and our hospitalist team. Physical examination: Patient seen and fully evaluated at the bedside. Dressing intact to groin/scrotal region has mild to moderate drainage noted, RN at bedside stated she awaiting supplies to change dressing and would be doing shortly. Postsurgical Dressing and Negrito wrap to left lower extremity is clean dry and intact with no noted bleed through or drainage. Patient currently reports he is feeling well and pain is controlled. White catheter remains in place. Vital s igns this morning unremarkable. Morning labs reviewed, patient with continued leukocytosis with WBC count of 17.0, normocytic normochromic anemia with hemoglobin of 11.1 and mild hyperglycemia with glucose of 247. General: non toxic, no distress, appears at stated age Derm: warm, dry. Postsurgical dressing and Negrito wrap to left lower extremity is clean dry and intact with no noted bleed through or drainage. Head: atraumatic, normocephalic, symmetric Eyes: EOMI, no lid lag, anicteric sclera Mouth: no lip lesion, mucus membranes moist Cardiovascular: S1S2 reg, no murmur, positive posterior tibial pulse bilateral, Lungs: CTA bilateral, no rhonchi, no rales , no accessory muscle use GI/: Abdomen soft, nontender to palpation, no guarding, no appreciable organomegaly. White catheter in place. 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 -Patient will need PICC line for anticipated prolonged IV antibiotic course -Repeat CBC, BMP, magnesium in the morning -CRP improving from 30.9 down to 8.70. -Tylenol, Dilaudid when necessary for pain control -PPI daily -Nausea control -DVT prophylaxis with Lovenox 40 mg subcu daily Prediabetes -Low-dose sliding scale insulin for elevated sugars, A1c is 5.9% Patient is full code Thank you for allowing us to participate in the care of this pleasant patient. Do not hesitate to contact us with questions. Someone can be reached from the [facility] hospitalist group all hours of the day at [phone] or via [email or web address]. I reviewed the documentation as provided by the CHARLEE above, who is the original author of this note. I agree with the documented assessment and plan, with the following changes: None Objective - Vital Signs Vital signs: Vital Signs Temp 98.1 F 01/05/22 02:30 Pulse 82 01/05/22 02:30 Resp 18 01/05/22 02:30 BP 134/85 01/05/22 02:30 Pulse Ox 100 01/05/22 02:30 FiO2 Intake & Output 01/04/22 01/05/22 01/05/22 18:59 06:59 18:59 Intake Total 751 Output Total 600 1725 Balance -600 -974 Weight 99.2 kg Intake: IV 751 Output: Urine 600 1700 Estimated Blood Loss 25 Other: Voiding Method Indwelling Catheter Indwelling Catheter # Bowel Movements 1 - Labs CBC & Chem 7: 01/05/22 04:35 01/05/22 04:35 Labs: Abnormal Lab Results - Last 24 Hours (Table) 01/04/22 01/04/22 01/05/22 Range/Units 22:00 23:30 07:30 WBC 19.5 H (3.8-10.6) k/uL RBC 4.03 L (4.30-5.90) m/uL Hgb 12.0 L (13.0-17.5) gm/dL Hct 37.9 L (39.0-53.0) % Plt Count 452 H D (150-450) k/uL Neutrophils # 17.3 H (1.3-7.7) k/uL POC Glucose (mg/dL) 279 H 207 H (75-99) mg/dL Microbiology - Last 24 Hours (Table) 01/01/22 05:48 Blood Culture - Preliminary Blood No Growth after 96 hours 01/02/22 05:03 Blood Culture - Preliminary Blood No Growth after 72 hours 12/30/21 20:00 Blood Culture - Preliminary Blood No Growth after 120 hours 12/31/21 16:41 Gram Stain - Final Other - Other Wound Culture - Final Strep pyogenes (grp a) Methicillin resist S. aureus
--- NOTE | 2022-01-05 13:10 | P.PN ---
Subjective Progress Note Date: 01/05/22 The patient is in the hospital with Mario's gangrene of the scrotum. He has undergone extensive debridement with marked improvement of this polyp. He also developed an abscess of his left deep cath. The etiology of this is indeterminate. The microbiology is pending. Dr. Bravo of orthopedics drain this yesterday. He feels better and the leg looks better. I inspected the scrotal wound today and he continues to improve. He will continue with the antibiotics as directed by Dr. Meredith yoon. We will continue with dressing cares to the scrotum. Dr. Bravo direct the dressing cares of the leg. Once the patient is afebrile and his appropriate antibiotics are determined and he or his partner can care for his scrotum and leg he can be discharged home. I don't anticipate this for another 48-72 hours. Objective - Vital Signs Vital signs: Vital Signs Temp 98.4 F 01/05/22 09:55 Pulse 80 01/05/22 09:55 Resp 16 01/05/22 09:55 BP 135/80 01/05/22 09:55 Pulse Ox 97 01/05/22 09:55 FiO2 Intake & Output 01/04/22 01/05/22 01/05/22 18:59 06:59 18:59 Intake Total 751 Output Total 600 1725 Balance -600 -974 Weight 99.2 kg Intake: IV 751 Output: Urine 600 1700 Estimated Blood Loss 25 Other: Voiding Method Indwelling Catheter Indwelling Catheter Indwelling Catheter # Bowel Movements 1 - Labs CBC & Chem 7: 01/05/22 04:35 01/05/22 04:35 Labs: Abnormal Lab Results - Last 24 Hours (Table) 01/04/22 01/04/22 01/05/22 Range/Units 22:00 23:30 04:35 WBC 19.5 H 17.00 H (3.8-10.6) k/uL RBC 4.03 L 3.85 L (4.30-5.90) m/uL Hgb 12.0 L 11.1 L (13.0-17.5) gm/dL Hct 37.9 L 34.9 L (39.0-53.0) % MCHC 31.8 L (32.0-37.0) g/dL Plt Count 452 H D (150-450) k/uL Immature Gran # 0.71 H (0.00-0.04) X 10*3/uL Neutrophils # 17.3 H 14.20 H (1.3-7.7) k/uL Eosinophils # 0.01 L (0.04-0.35) X 10*3/uL Glucose (70-110) mg/dL POC Glucose (mg/dL) 279 H (75-99) mg/dL Calcium (8.7-10.3) mg/dL C-Reactive Protein (0.00-0.80) mg/dL 01/05/22 01/05/22 01/05/22 Range/Units 04:35 07:30 11:26 WBC (3.8-10.6) k/uL RBC (4.30-5.90) m/uL Hgb (13.0-17.5) gm/dL Hct (39.0-53.0) % MCHC (32.0-37.0) g/dL Plt Count (150-450) k/uL Immature Gran # (0.00-0.04) X 10*3/uL Neutrophils # (1.3-7.7) k/uL Eosinophils # (0.04-0.35) X 10*3/uL Glucose 247 H (70-110) mg/dL POC Glucose (mg/dL) 207 H 178 H (75-99) mg/dL Calcium 7.5 L (8.7-10.3) mg/dL C-Reactive Protein 8.70 H (0.00-0.80) mg/dL Microbiology - Last 24 Hours (Table) 01/01/22 05:48 Blood Culture - Preliminary Blood No Growth after 96 hours 01/02/22 05:03 Blood Culture - Preliminary Blood No Growth after 72 hours 12/30/21 20:00 Blood Culture - Preliminary Blood No Growth after 120 hours
--- NOTE | 2022-01-05 13:24 | P.PN ---
Progress Note - Text Progress Note Date: 01/05/22 Orthopedics: History of present illness: Patient is a very pleasant 51-year-old male who is seen and examined at bedside for follow up evaluation of his left lower extremity. He is status post deep irrigation and debridement with excisional debridement of left lower leg abscess, deep tissue adjacent to the fibula and tibia, and entering with any intramuscular substance of the medial gastrocnemius. He currently has a dressing intact for the left lower extremity. Postoperatively he feels he has had improvement of his left lower extremity pain. He has better range of motion of his left ankle and is able to wiggle the toes of the left foot better. The erythema in his left ankle is improving. He continues to have iodoform packing in place at the surgical site of his left calf. In regards to his left lower extremity, he is happy with this progress since yesterday. 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 Patient does not report any other significant medical history. Patient is being seen and evaluated by medicine and infectious disease as well. He continues with scrotal packing per the recommendations of urology. Physical Exam: Patient is awake, alert, and oriented 3 Vital signs stable Good chest excursion with deep inspiration and expiration Dressing over the left calf is clean, dry, and intact Erythema at the left ankle and foot is improving as compared to previous cellulitis line which was written on his left ankle Patient has improved active range of motion of the left ankle with dorsiflexion and plantar flexion with less pain Evidence of edema around the left ankle and foot Patient has better range of motion with wiggling the toes of the left foot that has increased pain with toe extension Neurovascular intact left lower extremity White catheter intact Pertinent studies: MRI of the left lower extremity taken on 01/04/2022: Large complex mass in the left calf muscle measuring 20 cm in length by approximately 7.5 cm x 5 cm in diameter with central multiseptated cystic component that could be intramuscular abscess in which tumor or hematoma is not excluded; also consider calf muscle necrosis X-rays of the left tibia and fibula taken on 01/03/2022: No acute fracture identified; no gross lytic or sclerotic bone lesion; no soft tissue gas identified Ultrasound of the left lower extremity taken on 01/03/2022: Complex cystic structure is seen in the area of interest of the left calf incompletely characterized by this ultrasound Assessment: Status post deep irrigation and debridement with excisional debridement of left lower leg abscess, deep tissue adjacent to the fibula and tibia, and entering with any intramuscular substance of the medial gastrocnemius Left lower leg deep abscess deep and intramuscular at the gastrocnemius Left lower extremity leg pain Difficulty with ambulation left lower extremity due to leg pain 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 Patient is status post deep irrigation and debridement with excisional debridement of left lower leg abscess, deep tissue adjacent to the fibula and tibia, and entering with any intramuscular substance of the medial gastrocnemius for left lower leg deep abscess deep and intramuscular at the gastrocnemius performed yesterday, 01/04/2022. Following surgical intervention, he has better range of motion of the toes of the left foot and left ankle. The erythema is improving at his left ankle and foot. Dressing over the left lower extremity over the calf remains clean, dry, and intact with iodoform gauze intact. Patient has been continuing with daily scrotal packing which is scheduled to be performed later today. He is planning to receive IV pain medication prior to this scrotal packing. We did discuss at the time of the scrotal packing the dressing over the left lower extremity may be taken down and approximately 6 inches of iodoform gauze may be pulled out and cut. A dressing may be reapplied with nonstick Telfa, 4 x 4's, ABDs, and an Negrito wrap. We will keep the rest of the iodoform gauze intact until tomorrow at which time we'll plan to remove the rest of the iodoform gauze from the surgical site of the left calf. We did discuss patient may continue mobilizing may weight-bear as tolerated left lower extremity. We will continue to follow the patient. 2. Patient will continue be seen examined by multiple medical providers including neurology, infectious disease, and medicine 3. Patient should continue with antibiotic medications as prescribed by infectious disease. These medications may be altered at the discretion of infectious disease.
--- NOTE | 2022-01-05 14:04 | P.PN ---
Subjective Progress Note Date: 01/05/22 Principal diagnosis: scrotal gangrene and MRSA bacteremia Patient is a 51-year-old male presenting to the hospital with scrotal pain swelling redness has been diagnosed with Mario's gangrene status post extensive scrotal debridement and the patient also have MRSA bacteremia. Patient also have a pain to the left leg ultrasound suggestive of a cystic lesion MRI is concerning for possible abscess versus hematoma, patient is status post surgical drainage of left leg intramuscular abscess by orthopedics on 01/04/2022 On today's evaluation that is 01/05/2022, patient remains to be afebrile, patient pain to the scrotal as well as left leg is currently controlled , the patient denies any chest pain shortness of breath or cough, no abdominal pain or diarrhea Objective - Vital Signs Vital signs: Vital Signs Temp 98.4 F 01/05/22 09:55 Pulse 80 01/05/22 09:55 Resp 16 01/05/22 09:55 BP 135/80 01/05/22 09:55 Pulse Ox 97 01/05/22 09:55 FiO2 Intake & Output 01/04/22 01/05/22 01/05/22 18:59 06:59 18:59 Intake Total 751 Output Total 600 1725 Balance -600 -974 Weight 99.2 kg Intake: IV 751 Output: Urine 600 1700 Estimated Blood Loss 25 Other: Voiding Method Indwelling Catheter Indwelling Catheter Indwelling Catheter # Bowel Movements 1 - Exam GENERAL DESCRIPTION: Middle-aged male lying in bed in no distress RESPIRATORY SYSTEM: Unlabored breathing , decreased breath sounds at bases HEART: S1 S2 regular rate and rhythm , ABDOMEN: Soft , no tenderness : Scrotal wound is currently dressed surrounding redness has improved no drainage EXTREMITIES: Left lower extremity is currently wrapped no drainage on dressing - Labs CBC & Chem 7: 01/05/22 04:35 01/05/22 04:35 Labs: Abnormal Lab Results - Last 24 Hours (Table) 01/04/22 01/04/22 01/05/22 Range/Units 22:00 23:30 04:35 WBC 19.5 H 17.00 H (3.8-10.6) k/uL RBC 4.03 L 3.85 L (4.30-5.90) m/uL Hgb 12.0 L 11.1 L (13.0-17.5) gm/dL Hct 37.9 L 34.9 L (39.0-53.0) % MCHC 31.8 L (32.0-37.0) g/dL Plt Count 452 H D (150-450) k/uL Immature Gran # 0.71 H (0.00-0.04) X 10*3/uL Neutrophils # 17.3 H 14.20 H (1.3-7.7) k/uL Eosinophils # 0.01 L (0.04-0.35) X 10*3/uL Glucose (70-110) mg/dL POC Glucose (mg/dL) 279 H (75-99) mg/dL Calcium (8.7-10.3) mg/dL C-Reactive Protein (0.00-0.80) mg/dL 01/05/22 01/05/22 01/05/22 Range/Units 04:35 07:30 11:26 WBC (3.8-10.6) k/uL RBC (4.30-5.90) m/uL Hgb (13.0-17.5) gm/dL Hct (39.0-53.0) % MCHC (32.0-37.0) g/dL Plt Count (150-450) k/uL Immature Gran # (0.00-0.04) X 10*3/uL Neutrophils # (1.3-7.7) k/uL Eosinophils # (0.04-0.35) X 10*3/uL Glucose 247 H (70-110) mg/dL POC Glucose (mg/dL) 207 H 178 H (75-99) mg/dL Calcium 7.5 L (8.7-10.3) mg/dL C-Reactive Protein 8.70 H (0.00-0.80) mg/dL Microbiology - Last 24 Hours (Table) 01/01/22 05:48 Blood Culture - Preliminary Blood No Growth after 96 hours 01/02/22 05:03 Blood Culture - Preliminary Blood No Growth after 72 hours 12/30/21 20:00 Blood Culture - Preliminary Blood No Growth after 120 hours 12/31/21 16:41 Gram Stain - Final Other - Other Wound Culture - Final Strep pyogenes (grp a) Methicillin resist S. aureus Assessment and Plan (1) Abscess of scrotum Current Visit: Yes Status: Acute Code(s): N49.2 - INFLAMMATORY DISORDERS OF SCROTUM SNOMED Code(s): 41559068 Plan: 1patient presented to hospital with sepsis this patient with a fever elevated white count tachycardia secondary to extensive scrotal cellulitis/Mario's gangrene in this patient was status post extensive debridement and drainage of the scrotal abscess. 2local cultures finalized with MRSA and strep. 3patient did have MRSA bacteremia, blood culture has been repeated document clearance of bacteremia 4patient with left leg pain ultrasound left leg with a cystic lesion, MRI has been suggestive of abscess versus hematoma patient is status post surgical debridement with the drainage of the abscess cultures are pending 5 patient will continue with vancomycin and clindamycin while waiting for repeat culture to be finalize Time with Patient: Less than 30
[2022-01-05 16:19] LABS: Glucose,Whole Blood 120 mg/dL (75-99)
[2022-01-05] MEDS: ACETAMINOPHEN TAB 325 MG TAB PO PRN (19:49)
[2022-01-05 21:23] LABS: Glucose,Whole Blood 122 mg/dL (75-99)
[2022-01-06] MEDS: CLINDAMYCIN 900 MG in DEXTROSE 5% IN WATER 50 ML IVPB SCH ×6 (00:16→17:26)
[2022-01-06] MEDS: SODIUM CHLORIDE 0.9% 1,000 ML IV SCH ×3 (02:21→20:25)
[2022-01-06] MEDS: VANCOMYCIN 1,750 MG in SODIUM CHLORIDE 0.9% 500 ML 500 ML IVPB SCH ×2 (06:37→17:25)
[2022-01-06 07:22] LABS: Glucose,Whole Blood 102 mg/dL (75-99)
[2022-01-06] MEDS: INSULIN ASPART (NovoLOG) 100 UNIT/ML VIAL SQ SCH ×4 (09:20→21:26)
[2022-01-06] MEDS: PANTOPRAZOLE 40 MG/10 ML VIAL IV SCH (09:22)
[2022-01-06] MEDS: MULTIVITAMINS, THERA 1 EACH TAB PO SCH (09:22)
[2022-01-06] MEDS: SENNOSIDES-DOCUSATE SODIUM 1 EACH TAB PO SCH (09:22)
[2022-01-06] MEDS: ENOXAPARIN 40 MG/0.4 ML SYRINGE SQ SCH (09:22)
[2022-01-06 09:24] LABS: HCT 34.2 % (39.6-50.0); HGB 10.9 g/dL (13.0-17.0); MCH 28.5 pg (27.0-32.0); MCHC 31.9 g/dL (32.0-37.0); MCV 89.3 fL (80.0-97.0); Mean Platelet Volume 9.6 fL (9.5-12.2); NRBC Per 100 WBC 0 /100 WBCS (0.0-0.0); Platelet Count 464 X 10*3/uL (140-440); RBC 3.83 X 10*6/uL (4.40-5.60); RDW 13.1 % (11.5-14.5); WBC 14.92 X 10*3/uL (4.50-10.00)
[2022-01-06 09:33] LABS: African American GFR (CKD) 125.4 (60.0-200.0); Albumin 2.5 g/dL (3.8-4.9); Albumin/Globulin Ratio 0.78 (1.60-3.17); Anion Gap 10.8 mmol/L (10.00-18.00); BUN/Creat Ratio 15.9 Ratio (12.00-20.00); Blood Urea Nitrogen 11.4 mg/dL (9.0-27.0); Calcium 7.6 mg/dL (8.7-10.3); Carbon Dioxide 23.2 mmol/L (20.0-27.5); Globulin 3.2 g/dL (1.6-3.3); Non-African American GFR(CKD) 108.2 (60.0-200.0); Potassium 4.8 mmol/L (3.5-5.5); Total Bilirubin 0.3 mg/dL (0.30-1.20); Total Protein 5.6 g/dL (6.2-8.2)
[2022-01-06 10:25] LABS: Basophils # (M) 0 X 10*3/uL (0.00-0.10); Eosinophils # (M) 0.15 X 10*3/uL (0.04-0.35); Lymphocytes # (M) 1.49 X 10*3/uL (0.90-5.00); Neutrophils # (M) 12.68 X 10*3/uL (2.00-8.90); Neutrophils % (M) 85 %; RBC Morphology NORMAL
[2022-01-06 11:52] LABS: Glucose,Whole Blood 130 mg/dL (75-99)
--- NOTE | 2022-01-06 11:57 | P.PN ---
Progress Note - Text Progress Note Date: 01/06/22 Orthopedics: History of present illness: Patient is a very pleasant 51-year-old male who is seen and examined at bedside for follow up evaluation of his left lower extremity. He is status post deep irrigation and debridement with excisional debridement of left lower leg abscess, deep tissue adjacent to the fibula and tibia, and entering with any intramuscular substance of the medial gastrocnemius. He currently has a dressing intact for the left lower extremity. Postoperatively he continues to feel he has had improvement of his left lower extremity pain. He has better range of motion of his left ankle and is able to wiggle the toes of the left foot better. The erythema in his left ankle is improving. He continues to have iodoform packing in place at the surgical site of his left calf. In regards to his left lower extremity, he is happy with this progress since yesterday. 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 Patient does not report any other significant medical history. Patient is being seen and evaluated by medicine and infectious disease as well. He continues with scrotal packing per the recommendations of urology. Yesterday the patient was able to receive pain medication and then underwent scrotal packing and approximately 6 inches of iodoform removal from his left calf at the same time. He states this plan of receiving medication and then performing the packing and removing iodoform at the same time was a good plan in terms of his pain control. He would like to continue with this plan today. We did discuss his cultures are still pending. They're currently in preliminary status. Preliminary status for the left leg wound culture was positive for presumptive MRSA and presumptive staph aureus. Physical Exam: Patient is awake, alert, and oriented 3 Vital signs stable Good chest excursion with deep inspiration and expiration Dressing over the left calf is clean, dry, and intact Erythema at the left ankle and foot is improving as compared to previous cellulitis line which was written on his left ankle Patient has improved active range of motion of the left ankle with dorsiflexion and plantar flexion with less pain Evidence of edema around the left ankle and foot Patient has better range of motion with wiggling the toes of the left foot that has increased pain with toe extension Neurovascular intact left lower extremity White catheter intact Pertinent studies: MRI of the left lower extremity taken on 01/04/2022: Large complex mass in the left calf muscle measuring 20 cm in length by approximately 7.5 cm x 5 cm in diameter with central multiseptated cystic component that could be intramuscular abscess in which tumor or hematoma is not excluded; also consider calf muscle necrosis X-rays of the left tibia and fibula taken on 01/03/2022: No acute fracture identified; no gross lytic or sclerotic bone lesion; no soft tissue gas identified Ultrasound of the left lower extremity taken on 01/03/2022: Complex cystic structure is seen in the area of interest of the left calf incompletely characterized by this ultrasound Assessment: Status post deep irrigation and debridement with excisional debridement of left lower leg abscess, deep tissue adjacent to the fibula and tibia, and entering with any intramuscular substance of the medial gastrocnemius Left lower leg deep abscess deep and intramuscular at the gastrocnemius Left lower extremity leg pain Difficulty with ambulation left lower extremity due to leg pain 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 Patient is status post deep irrigation and debridement with excisional debridement of left lower leg abscess, deep tissue adjacent to the fibula and tibia, and entering with any intramuscular substance of the medial gastrocnemius for left lower leg deep abscess deep and intramuscular at the gastrocnemius performed 01/04/2022. Following surgical intervention, he has better range of motion of the toes of the left foot and left ankle. The erythema is improving at his left ankle and foot. Dressing over the left lower extremity over the calf remains clean, dry, and intact with iodoform gauze intact. Patient has been continuing with daily scrotal packing which is scheduled to be performed later today. He is planning to receive IV pain medication prior to this scrotal packing. We did discuss at the time of the scrotal packing that the dressing over the left lower extremity may be taken down and the remaining iodoform gauze may be removed. A dressing may be reapplied with nonstick Telfa, 4 x 4's, ABDs, and an Negrito wrap. We will continue to monitor his left calf and will further evaluate the wound site tomorrow. We did discuss patient may continue mobilizing may weight-bear as tolerated left lower extremity. We will continue to follow the patient. Plan of care was discussed in detail with the patient and the patient's nurse. 2. Patient will continue be seen examined by multiple medical providers including neurology, infectious disease, and medicine 3. Patient should continue with antibiotic medications as prescribed by infectious disease. These medications may be altered at the discretion of infectious disease.
--- NOTE | 2022-01-06 12:50 | P.PN ---
Subjective Progress Note Date: 01/06/22 The patient continues to recuperate from his Mario's gangrene of the scrotum and his left leg abscess drained by orthopedics. The microbiology from the scrotum was strep and staph. The microbiology of the leg appears to be staff. The wound on the scrotum is healing and granulating in nicely with dressing changes. The patient's partner feels reverse in changing the dressing. Orthopedics is handling the leg wound and apparently is going to change the dressing today. From urologic standpoint the patient could go home and asked 24-48 hours. The question is which antibiotics to be placed on given the 2 different bacteria contributing to the wound infections. I will defer to Dr. Khan of infectious disease for that final decision. This is been discussed with the patient. His condition is good. I'll remove the White in the morning. Objective - Vital Signs Vital signs: Vital Signs Temp 99.2 F 01/06/22 08:00 Pulse 86 01/06/22 08:00 Resp 18 01/06/22 08:00 BP 138/78 01/06/22 08:00 Pulse Ox 97 01/06/22 08:00 FiO2 Intake & Output 01/05/22 01/06/22 01/06/22 18:59 06:59 18:59 Intake Total 2160 590 Output Total 2100 8500 2100 Balance 60 -7910 -2100 Intake: Oral 2160 590 Output: Urine 2100 8500 2100 Other: Voiding Method Indwelling Catheter Indwelling Catheter - Labs CBC & Chem 7: 01/06/22 06:23 01/06/22 06:23 Labs: Abnormal Lab Results - Last 24 Hours (Table) 01/05/22 01/05/22 01/06/22 Range/Units 16:18 21:22 06:23 WBC (4.50-10.00) X 10*3/uL RBC (4.40-5.60) X 10*6/uL Hgb (13.0-17.0) g/dL Hct (39.6-50.0) % MCHC (32.0-37.0) g/dL Plt Count (140-440) X 10*3/uL Plt Count Comment Neutrophils # (Manual) (2.00-8.90) X 10*3/uL Glucose 125 H (70-110) mg/dL POC Glucose (mg/dL) 120 H 122 H (75-99) mg/dL Calcium 7.6 L (8.7-10.3) mg/dL Alkaline Phosphatase 140 H (41-126) U/L Total Protein 5.6 L (6.2-8.2) g/dL Albumin 2.5 L (3.8-4.9) g/dL Albumin/Globulin Ratio 0.78 L (1.60-3.17) g/dL 01/06/22 01/06/22 01/06/22 Range/Units 06:23 07:20 11:50 WBC 14.92 H (4.50-10.00) X 10*3/uL RBC 3.83 L (4.40-5.60) X 10*6/uL Hgb 10.9 L (13.0-17.0) g/dL Hct 34.2 L (39.6-50.0) % MCHC 31.9 L (32.0-37.0) g/dL Plt Count 464 H (140-440) X 10*3/uL Plt Count Comment INCREASED A Neutrophils # (Manual) 12.68 H (2.00-8.90) X 10*3/uL Glucose (70-110) mg/dL POC Glucose (mg/dL) 102 H 130 H (75-99) mg/dL Calcium (8.7-10.3) mg/dL Alkaline Phosphatase (41-126) U/L Total Protein (6.2-8.2) g/dL Albumin (3.8-4.9) g/dL Albumin/Globulin Ratio (1.60-3.17) g/dL Microbiology - Last 24 Hours (Table) 01/04/22 20:49 Gram Stain - Preliminary Leg - Left Wound Culture - Preliminary Presumptive Staph aureus 01/04/22 20:49 Gram Stain - Preliminary Leg - Left Wound Culture - Preliminary Presumptive MRSA 01/01/22 05:48 Blood Culture - Preliminary Blood No Growth after 120 hours 01/02/22 05:03 Blood Culture - Preliminary Blood No Growth after 96 hours 12/30/21 20:00 Blood Culture - Final Blood No Growth after 144 hours 12/31/21 16:41 Anaerobic Culture - Final Scrotum 12/31/21 16:41 Anaerobic Culture - Final Scrotum 01/04/22 20:49 Anaerobic Culture - Preliminary Leg - Left 01/04/22 20:49 Anaerobic Culture - Preliminary Leg - Left 01/04/22 20:49 Fungal Culture - Preliminary Leg - Left 01/04/22 20:49 Fungal Culture - Preliminary Leg - Left
[2022-01-06] MEDS: HYDROmorphone 1 MG/ML 1 ML SYRINGE IVP PRN ×2 (13:25→21:27)
--- NOTE | 2022-01-06 15:44 | P.PN ---
Subjective Progress Note Date: 01/06/22 Hospital course: Patient is a very pleasant 51-year-old man with no known prior medical history. He presented presented to the hospital on 12/30/21 with a chief complaint of swelling and pain of the scrotum. 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 On 01/04/22, our hospitalist team was consulted by urology services for medical management. Prior to our consult, patient had a six-day hospital course in which he was seen by urology service for Mario gangrene underwent debridement on 12/31. Cultures from that operation grew strep pyogenes as well as MRSA. Infectious disease was consulted for facilitation of IV antibiotics, and pt is currently being treated with vancomycin and clindamycin. Patient also subsequently grew bacteria in the blood including MRSA, strep Pyogenes, staph epidermidis, and bacillus species. Patient's scrotal wound has been healing well, however, his hospital course was complicated by leg pain up to the calf with area of erythema on the lower leg on the daphne-medial aspect. Patient then underwent imaging including lower extremity ultrasound as well as MRI, he was found to have a complex fluid collection in the left leg. At this point orthopedic surgery service was also consulted for debridement. On 01/04/22, patient then underwent deep irrigation and debridement with excision all debridement of left lower leg abscess including deep tissue adjacent to fibula and tibia and entering within the intramuscular's substance of the medial gastrocnemius. Patient currently remains on IV antibiotics with Unasyn and vancomycin and being followed closely by infectious disease, urology, orthopedic surgery and our hospitalist team. Physical examination: Patient seen and fully evaluated at the bedside. Patient reports that he is quite tired this morning, states he did not get much sleep. Dressings to left lower extremity and groin are clean dry and intact and per RN to be changed by infectious disease, RN reports infectious disease physician called ahead and stated to wait on dressing changes until he arrives at bedside. Patient otherwise denies having any complaints. Vital signs stable. Labs improving with WBC 14.92. Patient to continue with IV antibiotics vancomycin and clindamycin pending further culture results and recommendations per infectious disease. General: non toxic, no distress, appears at stated age Derm: warm, dry. Postsurgical dressing and Negrito wrap to left lower extremity is clean dry and intact with no noted bleed through or drainage. Head: atraumatic, normocephalic, symmetric Eyes: EOMI, no lid lag, anicteric sclera Mouth: no lip lesion, mucus membranes moist Cardiovascular: S1S2 reg, no murmur, positive posterior tibial pulse bilateral, Lungs: CTA bilateral, no rhonchi, no rales , no accessory muscle use GI/: Abdomen soft, nontender to palpation, no guarding, no appreciable organomegaly. White catheter in place. 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 -Patient will need PICC line for anticipated prolonged IV antibiotic course -Repeat CBC, BMP, magnesium in the morning -CRP improving from 30.9 down to 8.70. -Tylenol, Dilaudid when necessary for pain control -PPI daily -Nausea control -DVT prophylaxis with Lovenox 40 mg subcu daily Prediabetes -Low-dose sliding scale insulin for elevated sugars, A1c is 5.9% Patient is full code Thank you for allowing us to participate in the care of this pleasant patient. Do not hesitate to contact us with questions. Someone can be reached from the [facility] hospitalist group all hours of the day at [phone] or via [employer]. I reviewed the documentation as provided by the CHARLEE above, who is the original author of this note. I agree with the documented assessment and plan, with the following changes: none Objective - Vital Signs Vital signs: Vital Signs Temp 98.9 F 01/06/22 06:26 Pulse 90 01/06/22 02:00 Resp 16 01/06/22 02:00 BP 129/71 01/06/22 02:00 Pulse Ox 96 01/06/22 02:00 FiO2 Intake & Output 01/05/22 01/06/22 01/06/22 18:59 06:59 18:59 Intake Total 2160 590 Output Total 2100 8500 Balance 60 -7910 Intake: Oral 2160 590 Output: Urine 2100 8500 Other: Voiding Method Indwelling Catheter Indwelling Catheter - Labs CBC & Chem 7: 01/07/22 03:58 01/07/22 03:58 Labs: Abnormal Lab Results - Last 24 Hours (Table) 01/05/22 01/05/22 01/05/22 Range/Units 04:35 04:35 11:26 WBC 17.00 H (4.50-10.00) X 10*3/uL RBC 3.85 L (4.40-5.60) X 10*6/uL Hgb 11.1 L (13.0-17.0) g/dL Hct 34.9 L (39.6-50.0) % MCHC 31.8 L (32.0-37.0) g/dL Immature Gran # 0.71 H (0.00-0.04) X 10*3/uL Neutrophils # 14.20 H (1.80-7.70) X 10*3/uL Eosinophils # 0.01 L (0.04-0.35) X 10*3/uL Glucose 247 H (70-110) mg/dL POC Glucose (mg/dL) 178 H (75-99) mg/dL Calcium 7.5 L (8.7-10.3) mg/dL C-Reactive Protein 8.70 H (0.00-0.80) mg/dL 01/05/22 01/05/22 01/06/22 Range/Units 16:18 21:22 07:20 WBC (4.50-10.00) X 10*3/uL RBC (4.40-5.60) X 10*6/uL Hgb (13.0-17.0) g/dL Hct (39.6-50.0) % MCHC (32.0-37.0) g/dL Immature Gran # (0.00-0.04) X 10*3/uL Neutrophils # (1.80-7.70) X 10*3/uL Eosinophils # (0.04-0.35) X 10*3/uL Glucose (70-110) mg/dL POC Glucose (mg/dL) 120 H 122 H 102 H (75-99) mg/dL Calcium (8.7-10.3) mg/dL C-Reactive Protein (0.00-0.80) mg/dL Microbiology - Last 24 Hours (Table) 01/02/22 05:03 Blood Culture - Preliminary Blood No Growth after 96 hours 01/04/22 20:49 Gram Stain - Preliminary Leg - Left Wound Culture - Preliminary 01/04/22 20:49 Gram Stain - Preliminary Leg - Left Wound Culture - Preliminary 12/30/21 20:00 Blood Culture - Final Blood No Growth after 144 hours 12/31/21 16:41 Anaerobic Culture - Final Scrotum 12/31/21 16:41 Anaerobic Culture - Final Scrotum 01/04/22 20:49 Anaerobic Culture - Preliminary Leg - Left 01/04/22 20:49 Anaerobic Culture - Preliminary Leg - Left 01/04/22 20:49 Fungal Culture - Preliminary Leg - Left 01/04/22 20:49 Fungal Culture - Preliminary Leg - Left 01/01/22 05:48 Blood Culture - Preliminary Blood No Growth after 96 hours
[2022-01-06 16:13] LABS: Glucose,Whole Blood 207 mg/dL (75-99)
[2022-01-06 21:17] LABS: Glucose,Whole Blood 190 mg/dL (75-99)
[2022-01-07] MEDS: VANCOMYCIN 1,750 MG in SODIUM CHLORIDE 0.9% 500 ML 500 ML IVPB SCH ×3 (02:09→17:30)
[2022-01-07] MEDS: SODIUM CHLORIDE 0.9% 1,000 ML IV SCH ×3 (03:02→21:39)
[2022-01-07 07:30] LABS: Glucose,Whole Blood 129 mg/dL (75-99)
[2022-01-07] MEDS ORDERED: PANTOPRAZOLE 40 MG TABLET PO SCH (07:30)
[2022-01-07] MEDS: INSULIN ASPART (NovoLOG) 100 UNIT/ML VIAL SQ SCH ×4 (07:48→21:42)
[2022-01-07] MEDS ORDERED: VANCOMYCIN TROUGH DUE 1 EACH MISC MISCELLANE ONE (08:00)
--- NOTE | 2022-01-07 08:44 | P.PN ---
Progress Note - Text Progress Note Date: 01/07/22 Orthopedics: History of present illness: Patient is a very pleasant 51-year-old male who is seen and examined at bedside for follow up evaluation of his left lower extremity. He is status post deep irrigation and debridement with excisional debridement of left lower leg abscess, deep tissue adjacent to the fibula and tibia, and entering with any intramuscular substance of the medial gastrocnemius. He currently has a dressing intact for the left lower extremity. Postoperatively he continues to feel he has had improvement of his left lower extremity pain. He has better range of motion of his left ankle and is able to wiggle the toes of the left foot better. The erythema continued to improve. All iodoform gauze has been removed. He continues to keep his left foot and lower extremity elevated. He does continue to have some swelling in the left ankle and foot. He continues to feel happy with his progress in regards to his left lower extremity. He does have some difficulty weightbearing on the left lower extremity due to pain. 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 Patient does not report any other significant medical history. Patient is being seen and evaluated by medicine and infectious disease as well. He continues with scrotal packing per the recommendations of urology. He currently has a White catheter intact per urology. Patient states her plan to keep this intact until patient is able to increase his mobility until after further scrotal packing. Patient continue his IV antibiotic medications per infectious disease. Patient was seen and examined by infectious disease yesterday who may be planning for oral antibiotics at the time of discharge. If cleared, patient may be planning for discharge home today. Patient currently denies any fever or chills. Physical Exam: Post operative day #3 Patient is awake, alert, and oriented 3 Vital signs stable Good chest excursion with deep inspiration and expiration Dressing over the left calf is clean, dry, and intact Dressing is removed over the left lower extremity There was some discharge on the dressing but no active drainage at the surgical site Small opening at the incision site where the iodoform gauze was previously present Sutures remain intact over the left lateral calf Erythema at the left ankle and foot has had significant improvement as compared to previous cellulitis line which was written on his left ankle Patient has improved active range of motion of the left ankle with dorsiflexion and plantar flexion with less pain Evidence of 2+ pitting edema around the left ankle and foot Patient is able to perform flexion-extension of the toes of the left foot independently without significant difficulty Neurovascular intact left lower extremity White catheter intact Pertinent studies: MRI of the left lower extremity taken on 01/04/2022: Large complex mass in the left calf muscle measuring 20 cm in length by approximately 7.5 cm x 5 cm in diameter with central multiseptated cystic component that could be intramuscular abscess in which tumor or hematoma is not excluded; also consider calf muscle necrosis X-rays of the left tibia and fibula taken on 01/03/2022: No acute fracture identified; no gross lytic or sclerotic bone lesion; no soft tissue gas identified Ultrasound of the left lower extremity taken on 01/03/2022: Complex cystic structure is seen in the area of interest of the left calf incompletely characterized by this ultrasound Assessment: Status post deep irrigation and debridement with excisional debridement of left lower leg abscess, deep tissue adjacent to the fibula and tibia, and entering with any intramuscular substance of the medial gastrocnemius Left lower leg deep abscess deep and intramuscular at the gastrocnemius Left lower extremity leg pain Difficulty with ambulation left lower extremity due to leg pain 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 Patient is status post deep irrigation and debridement with excisional debridement of left lower leg abscess, deep tissue adjacent to the fibula and tibia, and entering with any intramuscular substance of the medial gastrocnemius for left lower leg deep abscess deep and intramuscular at the gastrocnemius performed 01/04/2022. Following surgical intervention, he has better range of motion of the toes of the left foot and left ankle. The erythema has continued to improve at his left ankle and foot. He does continue to have swelling over his left foot and ankle. Postoperatively, he has been improving. Dressing over the left lower extremity has been removed. Sutures remain intact over the surgical site. She does not currently have any active drainage from the surgical site. We will currently allow his incision remained uncovered while lying in bed to get some air. We did discuss in detail with both the patient and nursing we will plan for a dressing to be reapplied with nonstick Telfa, 4 x 4 or ABD, and tape later today. We did discuss patient may continue mobilizing may weight-bear as tolerated left lower extremity. His left lower extremity appears to be improving postoperatively. He may be planning for discharge home today. From an orthopedic standpoint, patient will be cleared for discharge. We will plan to have him follow up this coming 01/11/2022, in the outpatient setting for further evaluation. We did discuss he keep his surgical site at the left lateral calf clean, dry, and intact. He should avoid standing water. He may shower with a dressing intact over his surgical site. He may continue with daily dressing changes as needed. Patient has any questions or concerns prior to his follow-up appointment he may call [facility] at [phone]. 2. Patient will continue be seen examined by multiple medical providers including neurology, infectious disease, and medicine 3. Patient should continue with antibiotic medications as prescribed by infectious disease. These medications may be altered at the discretion of infectious disease.
[2022-01-07 08:54] LABS: HCT 34.5 % (39.6-50.0); HGB 11.1 g/dL (13.0-17.0); MCH 29.1 pg (27.0-32.0); MCHC 32.2 g/dL (32.0-37.0); MCV 90.3 fL (80.0-97.0); Mean Platelet Volume 9.8 fL (9.5-12.2); NRBC Per 100 WBC 0 /100 WBCS (0.0-0.0); Platelet Count 426 X 10*3/uL (140-440); RBC 3.82 X 10*6/uL (4.40-5.60); WBC 13.25 X 10*3/uL (4.50-10.00)
[2022-01-07 09:12] LABS: African American GFR (CKD) 126.6 (60.0-200.0); Albumin 2.3 g/dL (3.8-4.9); Albumin/Globulin Ratio 0.7 (1.60-3.17); BUN/Creat Ratio 14.57 Ratio (12.00-20.00); Blood Urea Nitrogen 10.2 mg/dL (9.0-27.0); Calcium 7.5 mg/dL (8.7-10.3); Globulin 3.3 g/dL (1.6-3.3); Non-African American GFR(CKD) 109.3 (60.0-200.0); Potassium 4.7 mmol/L (3.5-5.5); Total Bilirubin 0.3 mg/dL (0.30-1.20); Total Protein 5.6 g/dL (6.2-8.2)
[2022-01-07] MEDS: PANTOPRAZOLE 40 MG/10 ML VIAL IV SCH (09:23)
[2022-01-07] MEDS: SENNOSIDES-DOCUSATE SODIUM 1 EACH TAB PO SCH (09:23)
[2022-01-07] MEDS: ENOXAPARIN 40 MG/0.4 ML SYRINGE SQ SCH (09:23)
[2022-01-07] MEDS: MULTIVITAMINS, THERA 1 EACH TAB PO SCH (09:23)
[2022-01-07] MEDS: HYDROcodone/APAP 5-325MG 1 EACH TAB PO PRN (10:31)
[2022-01-07 11:30] LABS: Glucose,Whole Blood 148 mg/dL (75-99)
--- NOTE | 2022-01-07 11:39 | CDI ---
Documentation Clarification Form Date: 01/02/2022 03:11:30 PM From: Chayito Ayoub RN CCDS Admit Date: 12/30/2021 08:51:00 PM Patient Name: Jarvis Bhat Visit Number: [id number] Discharge Date: ATTENTION: The Clinical Documentation Specialists (CDI) and [facility] Coding Staff appreciate your assistance in clarifying documentation. Please respond to the clarification below the line at the bottom and electronically sign. The CDI & [facility] Coding staff will review the response and follow-up if needed. Please note: Queries are made part of the Legal Health Record. If you have any questions, please contact the author of this message via ITS. Dr. Lennox Banks Sepsis is documented ED note, 01/01, but is not noted in subsequent documentation. Clarification is requested. History/Risk Factors: 51-year-old male presents to the ED for tenderness and swelling of the scrotum. The patient had fever and chills. No Reported Medical History. 12/31, H&P. 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 Pulmonary Consult 12/31: Founier's gangrene, polymicrobial, primary cultures indicating staph and strep pyogenous, the patient is post debridement, incision and drainage and the patient is currently postop day #1 Sepsis secondary to above, no hypotension, no encephalopathy Treatment: 12/30 Zosyn IVPB x 1; 12/30 Vancomycin IVPB x 1; 12/31 - 12/31 Zosyn IVPB Q8H; 12/31 01/01 Vancomycin IVPB Q12H; 01/01 - current Clindamycin IVPB Q8H; 01/02 to current Vancomycin IVPB Q8H. 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 He has had appropriate antibiotics to treat the sepsis.This treatment is ongoing.The patient also had debridement of hsi scrotum by myself and of the calf by Dr Bravo.Dr Khan has been managing his antibiotics for this septic event. (Template Last Revised: September 2020) CHAGO
--- NOTE | 2022-01-07 12:22 | P.PN ---
Subjective Progress Note Date: 01/07/22 No acute overnight events, patient is afebrile. His groinperineal wound is clean no signs of necrotic tissues. Infectious disease and orthopedics are following the patient . Objective - Vital Signs Vital signs: Vital Signs Temp 98.4 F 01/07/22 07:50 Pulse 98 01/07/22 08:00 Resp 17 01/07/22 08:00 BP 154/80 01/07/22 07:50 Pulse Ox 99 01/07/22 07:50 FiO2 Intake & Output 01/06/22 01/07/22 01/07/22 18:59 06:59 18:59 Output Total 3200 3000 Balance -3200 -3000 Output: Urine 3200 3000 Other: Voiding Method Indwelling Catheter Indwelling Catheter - Constitutional General appearance: Present: no acute distress - Gastrointestinal General gastrointestinal: Present: soft. Absent: distended - Genitourinary Genitourinary Comment(s): Perineal wound, scrotal wound clean, no signs of erythema. - Labs CBC & Chem 7: 01/07/22 03:58 01/07/22 03:58 Labs: Abnormal Lab Results - Last 24 Hours (Table) 01/06/22 01/06/22 01/07/22 Range/Units 16:12 21:16 03:58 WBC 13.25 H (4.50-10.00) X 10*3/uL RBC 3.82 L (4.40-5.60) X 10*6/uL Hgb 11.1 L (13.0-17.0) g/dL Hct 34.5 L (39.6-50.0) % Glucose (70-110) mg/dL POC Glucose (mg/dL) 207 H 190 H (75-99) mg/dL Calcium (8.7-10.3) mg/dL Alkaline Phosphatase (41-126) U/L Total Protein (6.2-8.2) g/dL Albumin (3.8-4.9) g/dL Albumin/Globulin Ratio (1.60-3.17) g/dL 01/07/22 01/07/22 01/07/22 Range/Units 03:58 07:26 11:29 WBC (4.50-10.00) X 10*3/uL RBC (4.40-5.60) X 10*6/uL Hgb (13.0-17.0) g/dL Hct (39.6-50.0) % Glucose 132 H (70-110) mg/dL POC Glucose (mg/dL) 129 H 148 H (75-99) mg/dL Calcium 7.5 L (8.7-10.3) mg/dL Alkaline Phosphatase 134 H (41-126) U/L Total Protein 5.6 L (6.2-8.2) g/dL Albumin 2.3 L (3.8-4.9) g/dL Albumin/Globulin Ratio 0.70 L (1.60-3.17) g/dL Microbiology - Last 24 Hours (Table) 01/01/22 05:48 Blood Culture - Final Blood No Growth after 144 hours 01/02/22 05:03 Blood Culture - Preliminary Blood No Growth after 120 hours 01/04/22 20:49 Gram Stain - Preliminary Leg - Left Wound Culture - Preliminary Presumptive Staph aureus 01/04/22 20:49 Gram Stain - Preliminary Leg - Left Wound Culture - Preliminary Presumptive MRSA Assessment and Plan Assessment: S/P debridement of Mario's gangrene of the scrotum on 12/31/21 and his left leg abscess drained by orthopedics. The microbiology from the scrotum was strep and staph. Wound clean this morning, infectious disease is following patient antibiotics. -We'll remove White catheter this morning, -He is okay for discharge from urology standpoint. Antibiotics will be deferred to infectious disease
--- NOTE | 2022-01-07 14:47 | P.PN ---
Progress Note - Text Progress Note Date: 01/07/22 The patient has been in the hospital since . 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 He has had appropriate antibiotics to treat the sepsis. This treatment is ongoing. The patient also had debridement of hsi scrotum by myself and of the calf by Dr Bravo. Dr Khan has been managing his antibiotics for this septic event.
--- NOTE | 2022-01-07 15:03 | P.PN ---
Subjective Progress Note Date: 01/07/22 Hospital course: Patient is a very pleasant 51-year-old man with no known prior medical history. He presented presented to the hospital on 12/30/21 with a chief complaint of swelling and pain of the scrotum. 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 On 01/04/22, our hospitalist team was consulted by urology services for medical management. Prior to our consult, patient had a six-day hospital course in which he was seen by urology service for Mario gangrene underwent debridement on 12/31. Cultures from that operation grew strep pyogenes as well as MRSA. Infectious disease was consulted for facilitation of IV antibiotics, and pt is currently being treated with vancomycin and clindamycin. Patient also subsequently grew bacteria in the blood including MRSA, strep Pyogenes, staph epidermidis, and bacillus species. Patient's scrotal wound has been healing well, however, his hospital course was complicated by leg pain up to the calf with area of erythema on the lower leg on the daphne-medial aspect. Patient then underwent imaging including lower extremity ultrasound as well as MRI, he was found to have a complex fluid collection in the left leg. At this point orthopedic surgery service was also consulted for debridement. On 01/04/22, patient then underwent deep irrigation and debridement with excision all debridement of left lower leg abscess including deep tissue adjacent to fibula and tibia and entering within the intramuscular's substance of the medial gastrocnemius. Patient currently remains on IV antibiotics with Unasyn and vancomycin and being followed closely by infectious disease, urology, orthopedic surgery and our hospitalist team. Physical examination: Patient seen and fully evaluated at the bedside this morning. He is preparing to have PICC line placed with tentative plan to be discharged home on 4 weeks of IV antibiotic therapy. Dressing intact to groin left lower extremity open to air, surgical incision intact with sutures. Patient afebrile at this time and over the past 24 hours with episodes of low-grade fever of 99.8, 99.9, etc. Patient denies having any dizziness, lightheadedness, headache, chest pain, palpitations, shortness of breath, chills, diaphoresis, or any other complaints at this time. Morning labs reviewed. WBCs 13.25 and hemoglobin 11.1. Patient to continue with IV antibiotics vancomycin and clindamycin pending further culture results and recommendations per infectious disease. General: non toxic, no distress, appears at stated age Derm: warm, dry. Postsurgical dressing and Negrito wrap to left lower extremity is clean dry and intact with no noted bleed through or drainage. Head: atraumatic, normocephalic, symmetric Eyes: EOMI, no lid lag, anicteric sclera Mouth: no lip lesion, mucus membranes moist Cardiovascular: S1S2 reg, no murmur, positive posterior tibial pulse bilateral, Lungs: CTA bilateral, no rhonchi, no rales , no accessory muscle use GI/: Abdomen soft, nontender to palpation, no guarding, no appreciable organomegaly. White catheter in place. 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 -Patient will need PICC line for anticipated prolonged IV antibiotic course -Repeat CBC, BMP, magnesium in the morning -CRP improving from 30.9 down to 8.70. -Tylenol, Dilaudid when necessary for pain control -PPI daily -Nausea control -DVT prophylaxis with Lovenox 40 mg subcu daily Prediabetes -Low-dose sliding scale insulin for elevated sugars, A1c is 5.9% Patient is full code Thank you for allowing us to participate in the care of this pleasant patient. Do not hesitate to contact us with questions. Someone can be reached from the [facility] [place] hospitalist group all hours of the day at [phone] or via perfect serve. I reviewed the documentation as provided by the CHARLEE above, who is the original author of this note. I agree with the documented assessment and plan, with the following changes: none Objective - Vital Signs Vital signs: Vital Signs Temp 98.4 F 01/07/22 07:50 Pulse 83 01/07/22 07:50 Resp 17 01/07/22 07:50 BP 154/80 01/07/22 07:50 Pulse Ox 99 01/07/22 07:50 FiO2 Intake & Output 01/06/22 01/07/22 01/07/22 18:59 06:59 18:59 Output Total 3200 3000 Balance -3200 -3000 Output: Urine 3200 3000 Other: Voiding Method Indwelling Catheter - Labs CBC & Chem 7: 01/07/22 03:58 01/07/22 03:58 Labs: Abnormal Lab Results - Last 24 Hours (Table) 01/06/22 01/06/22 01/06/22 Range/Units 06:23 06:23 11:50 WBC 14.92 H (4.50-10.00) X 10*3/uL RBC 3.83 L (4.40-5.60) X 10*6/uL Hgb 10.9 L (13.0-17.0) g/dL Hct 34.2 L (39.6-50.0) % MCHC 31.9 L (32.0-37.0) g/dL Plt Count 464 H (140-440) X 10*3/uL Plt Count Comment INCREASED A Neutrophils # (Manual) 12.68 H (2.00-8.90) X 10*3/uL Glucose 125 H (70-110) mg/dL POC Glucose (mg/dL) 130 H (75-99) mg/dL Calcium 7.6 L (8.7-10.3) mg/dL Alkaline Phosphatase 140 H (41-126) U/L Total Protein 5.6 L (6.2-8.2) g/dL Albumin 2.5 L (3.8-4.9) g/dL Albumin/Globulin Ratio 0.78 L (1.60-3.17) g/dL 01/06/22 01/06/22 01/07/22 Range/Units 16:12 21:16 07:26 WBC (4.50-10.00) X 10*3/uL RBC (4.40-5.60) X 10*6/uL Hgb (13.0-17.0) g/dL Hct (39.6-50.0) % MCHC (32.0-37.0) g/dL Plt Count (140-440) X 10*3/uL Plt Count Comment Neutrophils # (Manual) (2.00-8.90) X 10*3/uL Glucose (70-110) mg/dL POC Glucose (mg/dL) 207 H 190 H 129 H (75-99) mg/dL Calcium (8.7-10.3) mg/dL Alkaline Phosphatase (41-126) U/L Total Protein (6.2-8.2) g/dL Albumin (3.8-4.9) g/dL Albumin/Globulin Ratio (1.60-3.17) g/dL Microbiology - Last 24 Hours (Table) 01/01/22 05:48 Blood Culture - Final Blood No Growth after 144 hours 01/02/22 05:03 Blood Culture - Preliminary Blood No Growth after 120 hours 01/04/22 20:49 Gram Stain - Preliminary Leg - Left Wound Culture - Preliminary Presumptive Staph aureus 01/04/22 20:49 Gram Stain - Preliminary Leg - Left Wound Culture - Preliminary Presumptive MRSA
[2022-01-07] MEDS ORDERED: LIDOCAINE 1% PF 10 MG/ML (5 ML AMP) SQ ONE (15:04)
--- NOTE | 2022-01-07 16:27 | IR ---
EXAMINATION TYPE: IR cvc insert >=5 years DATE OF EXAM: 01/07/2022 COMPARISON: NONE CLINICAL HISTORY: Infection Needs long-term intravenous access for antibiotics. PROCEDURE: Hand hygiene obtained with soap and water and alcohol-based hand rub. After informed consent, the skin overlying the left basilic vein was localized with ultrasound and no nalini to be compressible and patent. An ultrasound image was obtained and submitted on the patient's c carbone. The overlying skin was prepped and draped and Lidocaine was used for local anesthesia. A skin joelle was made with a scalpel. Access was gained to the vein under ultrasound guidance with a 21 gau ge needle and a 0.018 inch wire was advanced. Access site was dilated with Peel-Away sheath and cath eter tailored to the appropriate length and advanced such that the distal tip is at the cavoatrial ju nction. Spot image was obtained verifying placement. Catheter was fixed to the skin and a sterile d ressing was placed following hemostasis. Catheter was aspirated and flushed with saline. Patient wa s discharged in stable condition without complication.Maximal barrier technique is utilized. Ultraso und image is documented on the chart. Ultrasound used with sterile technique. Fluoro time and fluoroscopic images submitted to document procedure: 12 intraoperative C-arm images d ocument the procedure, 0.1 minutes fluoroscopy time IMPRESSION: STATUS POST ULTRASOUND AND FLUOROSCOPIC GUIDED PICC LINE PLACEMENT, READY FOR USE. THIS PROCEDURE WAS PERFORMED BY THE UNDERSIGNED.
[2022-01-07 16:33] LABS: Glucose,Whole Blood 217 mg/dL (75-99)
[2022-01-07 21:32] LABS: Glucose,Whole Blood 167 mg/dL (75-99)
--- NOTE | 2022-01-07 22:38 | P.PN ---
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 Patient also have a pain to the left leg ultrasound suggestive of a cystic lesion MRI is concerning for possible abscess versus hematoma, patient is status post surgical drainage of left leg intramuscular abscess by orthopedics on 01/04/2022 On today's evaluation that is 01/06/2022, patient continues to be afebrile, patient pain to the scrotal as well as left leg is controlled with the current medication , the patient denies any chest pain shortness of breath or cough, no abdominal pain or diarrhea Objective - Vital Signs Vital signs: Vital Signs Temp 99.2 F 01/06/22 08:00 Pulse 86 01/06/22 08:00 Resp 18 01/06/22 08:00 BP 138/78 01/06/22 08:00 Pulse Ox 97 01/06/22 08:00 FiO2 Intake & Output 01/05/22 01/06/22 01/06/22 18:59 06:59 18:59 Intake Total 2160 590 Output Total 2100 8500 Balance 60 -7910 Intake: Oral 2160 590 Output: Urine 2100 8500 Other: Voiding Method Indwelling Catheter Indwelling Catheter - Exam GENERAL DESCRIPTION: Middle-aged male lying in bed in no distress RESPIRATORY SYSTEM: Unlabored breathing , decreased breath sounds at bases HEART: S1 S2 regular rate and rhythm , ABDOMEN: Soft , no tenderness : Scrotal wound is currently dressed surrounding redness has improved no drainage EXTREMITIES: Left lower extremity is currently wrapped no drainage on dressing - Labs CBC & Chem 7: 01/07/22 03:58 01/07/22 03:58 Labs: Abnormal Lab Results - Last 24 Hours (Table) 01/05/22 01/05/22 01/05/22 Range/Units 11:26 16:18 21:22 WBC (4.50-10.00) X 10*3/uL RBC (4.40-5.60) X 10*6/uL Hgb (13.0-17.0) g/dL Hct (39.6-50.0) % MCHC (32.0-37.0) g/dL Plt Count (140-440) X 10*3/uL Plt Count Comment Neutrophils # (Manual) (2.00-8.90) X 10*3/uL Glucose (70-110) mg/dL POC Glucose (mg/dL) 178 H 120 H 122 H (75-99) mg/dL Calcium (8.7-10.3) mg/dL Alkaline Phosphatase (41-126) U/L Total Protein (6.2-8.2) g/dL Albumin (3.8-4.9) g/dL Albumin/Globulin Ratio (1.60-3.17) g/dL 01/06/22 01/06/22 01/06/22 Range/Units 06:23 06:23 07:20 WBC 14.92 H (4.50-10.00) X 10*3/uL RBC 3.83 L (4.40-5.60) X 10*6/uL Hgb 10.9 L (13.0-17.0) g/dL Hct 34.2 L (39.6-50.0) % MCHC 31.9 L (32.0-37.0) g/dL Plt Count 464 H (140-440) X 10*3/uL Plt Count Comment INCREASED A Neutrophils # (Manual) 12.68 H (2.00-8.90) X 10*3/uL Glucose 125 H (70-110) mg/dL POC Glucose (mg/dL) 102 H (75-99) mg/dL Calcium 7.6 L (8.7-10.3) mg/dL Alkaline Phosphatase 140 H (41-126) U/L Total Protein 5.6 L (6.2-8.2) g/dL Albumin 2.5 L (3.8-4.9) g/dL Albumin/Globulin Ratio 0.78 L (1.60-3.17) g/dL Microbiology - Last 24 Hours (Table) 01/04/22 20:49 Gram Stain - Preliminary Leg - Left Wound Culture - Preliminary Presumptive Staph aureus 01/04/22 20:49 Gram Stain - Preliminary Leg - Left Wound Culture - Preliminary Presumptive MRSA 01/01/22 05:48 Blood Culture - Preliminary Blood No Growth after 120 hours 01/02/22 05:03 Blood Culture - Preliminary Blood No Growth after 96 hours 12/30/21 20:00 Blood Culture - Final Blood No Growth after 144 hours 12/31/21 16:41 Anaerobic Culture - Final Scrotum 12/31/21 16:41 Anaerobic Culture - Final Scrotum 01/04/22 20:49 Anaerobic Culture - Preliminary Leg - Left 01/04/22 20:49 Anaerobic Culture - Preliminary Leg - Left 01/04/22 20:49 Fungal Culture - Preliminary Leg - Left 01/04/22 20:49 Fungal Culture - Preliminary Leg - Left Assessment and Plan (1) Abscess of scrotum Current Visit: Yes Status: Acute Code(s): N49.2 - INFLAMMATORY DISORDERS OF SCROTUM SNOMED Code(s): 67393936 Plan: 1patient presented to hospital with sepsis this patient with a fever elevated white count tachycardia secondary to extensive scrotal cellulitis/Mario's gangrene in this patient was status post extensive debridement and drainage of the scrotal abscess. 2local cultures finalized with MRSA and strep. 3patient did have MRSA bacteremia, blood culture repeat has been negative 4patient with left leg pain ultrasound left leg with a cystic lesion, MRI has been suggestive of abscess versus hematoma patient is status post surgical debridement with the drainage of the abscess cultures finalized as MRSA 5 patient will continue with vancomycin however discontinue clindamycin , continue local wound care per surgery Time with Patient: Less than 30
--- NOTE | 2022-01-07 22:41 | P.PN ---
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 Patient also have a pain to the left leg ultrasound suggestive of a cystic lesion MRI is concerning for possible abscess versus hematoma, patient is status post surgical drainage of left leg intramuscular abscess by orthopedics on 01/04/2022 On today's evaluation that is 01/07/2022, patient denies any fever or chills, patient denies any worsening pain to the scrotal as well as left leg which actually has decreased in intensity , the patient denies any chest pain shortness of breath or cough, no abdominal pain or diarrhea Objective - Vital Signs Vital signs: Vital Signs Temp 98.4 F 01/07/22 07:50 Pulse 98 01/07/22 08:00 Resp 17 01/07/22 08:00 BP 154/80 01/07/22 07:50 Pulse Ox 99 01/07/22 07:50 FiO2 Intake & Output 01/06/22 01/07/22 01/07/22 18:59 06:59 18:59 Output Total 3200 3000 Balance -3200 -3000 Output: Urine 3200 3000 Other: Voiding Method Indwelling Catheter Indwelling Catheter - Exam GENERAL DESCRIPTION: Middle-aged male lying in bed in no distress RESPIRATORY SYSTEM: Unlabored breathing , decreased breath sounds at bases HEART: S1 S2 regular rate and rhythm , ABDOMEN: Soft , no tenderness : Scrotal wound is currently dressed surrounding redness has decreased and no foul-smelling drainage EXTREMITIES: Left lower extremity lateral border swelling redness has decreased stitches are intact - Labs CBC & Chem 7: 01/07/22 03:58 01/07/22 03:58 Labs: Abnormal Lab Results - Last 24 Hours (Table) 01/06/22 01/06/22 01/07/22 Range/Units 16:12 21:16 03:58 WBC 13.25 H (4.50-10.00) X 10*3/uL RBC 3.82 L (4.40-5.60) X 10*6/uL Hgb 11.1 L (13.0-17.0) g/dL Hct 34.5 L (39.6-50.0) % Glucose (70-110) mg/dL POC Glucose (mg/dL) 207 H 190 H (75-99) mg/dL Calcium (8.7-10.3) mg/dL Alkaline Phosphatase (41-126) U/L Total Protein (6.2-8.2) g/dL Albumin (3.8-4.9) g/dL Albumin/Globulin Ratio (1.60-3.17) g/dL 01/07/22 01/07/22 01/07/22 Range/Units 03:58 07:26 11:29 WBC (4.50-10.00) X 10*3/uL RBC (4.40-5.60) X 10*6/uL Hgb (13.0-17.0) g/dL Hct (39.6-50.0) % Glucose 132 H (70-110) mg/dL POC Glucose (mg/dL) 129 H 148 H (75-99) mg/dL Calcium 7.5 L (8.7-10.3) mg/dL Alkaline Phosphatase 134 H (41-126) U/L Total Protein 5.6 L (6.2-8.2) g/dL Albumin 2.3 L (3.8-4.9) g/dL Albumin/Globulin Ratio 0.70 L (1.60-3.17) g/dL Microbiology - Last 24 Hours (Table) 01/01/22 05:48 Blood Culture - Final Blood No Growth after 144 hours 01/02/22 05:03 Blood Culture - Preliminary Blood No Growth after 120 hours 01/04/22 20:49 Gram Stain - Preliminary Leg - Left Wound Culture - Preliminary Presumptive Staph aureus 01/04/22 20:49 Gram Stain - Preliminary Leg - Left Wound Culture - Preliminary Presumptive MRSA Assessment and Plan (1) Abscess of scrotum Current Visit: Yes Status: Acute Code(s): N49.2 - INFLAMMATORY DISORDERS OF SCROTUM SNOMED Code(s): 65267283 Plan: 1patient presented to hospital with sepsis this patient with a fever elevated white count tachycardia secondary to extensive scrotal cellulitis/Mario's gangrene in this patient was status post extensive debridement and drainage of the scrotal abscess. 2local cultures finalized with MRSA and strep. 3patient did have MRSA bacteremia, blood culture repeat has been negative 4patient with left leg pain ultrasound left leg with a cystic lesion, MRI has been suggestive of abscess versus hematoma patient is status post surgical debridement with the drainage of the abscess cultures finalized as MRSA 5 patient did got a PICC line and plan is for vancomycin pharmacy to dose 3 weeks in view of extensive infection continue local wound care as ordered and a close outpatient follow-up Time with Patient: Less than 30
[2022-01-08] MEDS: VANCOMYCIN 1,750 MG in SODIUM CHLORIDE 0.9% 500 ML 500 ML IVPB SCH ×3 (01:04→15:07)
[2022-01-08] MEDS: SODIUM CHLORIDE 0.9% 1,000 ML IV SCH (06:06)
[2022-01-08 07:02] LABS: Glucose,Whole Blood 116 mg/dL (75-99)
[2022-01-08 07:02] LABS: Glucose,Whole Blood 124 mg/dL (75-99)
[2022-01-08 07:15] LABS: African American GFR (CKD) >90 (>60 ml/min/1.73 sqM); Anion Gap 7 mmol/L; Blood Urea Nitrogen 13 mg/dL (9-20); Calcium 7.9 mg/dL (8.4-10.2); Carbon Dioxide 23 mmol/L (22-30); Chloride 105 mmol/L (98-107); Glucose 124 mg/dL (74-99); Non-African American GFR(CKD) >90 (>60 ml/min/1.73 sqM); Potassium 4.6 mmol/L (3.5-5.1); Sodium 135 mmol/L (137-145)
[2022-01-08] MEDS: INSULIN ASPART (NovoLOG) 100 UNIT/ML VIAL SQ SCH ×3 (07:20→17:04)
[2022-01-08] MEDS ORDERED: PANTOPRAZOLE 40 MG TABLET PO SCH (07:30)
[2022-01-08] MEDS: MULTIVITAMINS, THERA 1 EACH TAB PO SCH (07:40)
[2022-01-08] MEDS: ENOXAPARIN 40 MG/0.4 ML SYRINGE SQ SCH (07:40)
[2022-01-08] MEDS: SENNOSIDES-DOCUSATE SODIUM 1 EACH TAB PO SCH (07:40)
--- NOTE | 2022-01-08 10:35 | P.PN ---
Subjective No acute overnight events, patient is afebrile. His groinperineal wound is clean no signs of necrotic tissues. Infectious disease and orthopedics are following the patient . White removed yesterday, voiding w/o issue Objective - Vital Signs Vital signs: Vital Signs Temp 98.7 F 01/08/22 07:55 Pulse 76 01/08/22 07:55 Resp 20 01/08/22 07:55 BP 138/79 01/08/22 07:55 Pulse Ox 97 01/08/22 07:55 FiO2 Intake & Output 01/07/22 01/08/22 01/08/22 18:59 06:59 18:59 Other: Voiding Method Indwelling Catheter Urinal Urinal # Voids 5 3 # Bowel Movements 1 - Labs CBC & Chem 7: 01/07/22 03:58 01/08/22 06:15 Labs: Abnormal Lab Results - Last 24 Hours (Table) 01/07/22 01/07/22 01/07/22 Range/Units 11:29 16:32 21:30 Sodium (137-145) mmol/L Glucose (74-99) mg/dL POC Glucose (mg/dL) 148 H 217 H 167 H (75-99) mg/dL Calcium (8.4-10.2) mg/dL 01/08/22 01/08/22 01/08/22 Range/Units 06:15 06:55 07:00 Sodium 135 L (137-145) mmol/L Glucose 124 H (74-99) mg/dL POC Glucose (mg/dL) 124 H 116 H (75-99) mg/dL Calcium 7.9 L (8.4-10.2) mg/dL Microbiology - Last 24 Hours (Table) 01/02/22 05:03 Blood Culture - Final Blood No Growth after 144 hours 01/04/22 20:49 Anaerobic Culture - Preliminary Leg - Left 01/04/22 20:49 Anaerobic Culture - Preliminary Leg - Left 01/04/22 20:49 Gram Stain - Final Leg - Left Wound Culture - Final Methicillin resist S. aureus 01/04/22 20:49 Gram Stain - Final Leg - Left Wound Culture - Final Methicillin resist S. aureus 01/01/22 05:48 Blood Culture - Final Blood No Growth after 144 hours Assessment and Plan Assessment: S/P debridement of Mario's gangrene of the scrotum on 6/6/22 and his left leg abscess drained by orthopedics. The microbiology from the scrotum was strep and staph. Wound clean this morning, infectious disease is following patient antibiotics. -He is okay for discharge from urology standpoint. Antibiotics will be deferred to infectious disease
--- NOTE | 2022-01-08 11:07 | P.PN ---
Subjective Progress Note Date: 01/08/22 Hospital course: Patient is a very pleasant 51-year-old man with no known prior medical history. He presented presented to the hospital on 12/30/21 with a chief complaint of swelling and pain of the scrotum. 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 On 01/04/22, our hospitalist team was consulted by urology services for medical management. Prior to our consult, patient had a six-day hospital course in which he was seen by urology service for Mario gangrene underwent debridement on 12/31. Cultures from that operation grew strep pyogenes as well as MRSA. Infectious disease was consulted for facilitation of IV antibiotics, and pt is currently being treated with vancomycin and clindamycin. Patient also subsequently grew bacteria in the blood including MRSA, strep Pyogenes, staph epidermidis, and bacillus species. Patient's scrotal wound has been healing well, however, his hospital course was complicated by leg pain up to the calf with area of erythema on the lower leg on the daphne-medial aspect. Patient then underwent imaging including lower extremity ultrasound as well as MRI, he was found to have a complex fluid collection in the left leg. At this point orthopedic surgery service was also consulted for debridement. On 01/04/22, patient then underwent deep irrigation and debridement with excision all debridement of left lower leg abscess including deep tissue adjacent to fibula and tibia and entering within the intramuscular's substance of the medial gastrocnemius. Wound cultures from left leg positive for MRSA. Repeat blood cultures from 01/01 and 01/02 showing no growth. Patient currently remains on IV antibiotics with vancomycin and being followed closely by infectious disease, urology, orthopedic surgery and our hospitalist team. Physical examination: Patient seen and fully evaluated at the bedside this morning. He underwent placement of PICC line yesterday. Plan is for discharge home on 4 weeks of IV antibiotic therapy with vancomycin, this is to be followed with infectious disease. Medically patient is stable for discharge at this time once IV antibiotic arrangements are confirmed and times have been set up by home care. Patient's White catheter was removed yesterday and patient has since been urinating without any reported difficulties. Dressings have been freshly changed to groin and left lower extremity is open to air. Patient denies having any complaints at this time including headache, lightheadedness, dizziness, chest pain, palpitations, shortness of breath, nausea, vomiting, or diarrhea. Highest temperature over the last 24 hours has been 99.4F, vital signs otherwise unremarkable. Patient cleared from medical standpoint for discharge home. General: non toxic, no distress, appears at stated age Derm: warm, dry. Left lower extremity, postsurgical incision/wound is well a pproximated with sutures intact and no surrounding erythema or drainage. Head: atraumatic, normocephalic, symmetric Eyes: EOMI, no lid lag, anicteric sclera Mouth: no lip lesion, mucus membranes moist Cardiovascular: S1S2 reg, no murmur, positive posterior tibial pulse bilateral, Lungs: CTA bilateral, no rhonchi, no rales , no accessory muscle use GI/: Abdomen soft, nontender to palpation, no guarding, no appreciable organomegaly. White catheter in place. Dressing to groin/scrotal region is clean, dry, and intact. 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 -Patient will need PICC line for anticipated prolonged IV antibiotic course -Repeat CBC, BMP, magnesium in the morning -CRP improving from 30.9 down to 8.70. -Tylenol, Dilaudid when necessary for pain control -PPI daily -Nausea control -DVT prophylaxis with Lovenox 40 mg subcu daily Prediabetes -A1c is 5.9%, recommend heart healthy and carb consistent diet upon discharge with repeat hemoglobin A1c by PCP in 3 months. Patient is full code Thank you for allowing us to participate in the care of this pleasant patient. Do not hesitate to contact us with questions. Someone can be reached from the [facility] hospitalist group all hours of the day at [phone] or via perfect serve. I reviewed the documentation as provided by the CHARLEE above, who is the original author of this note. I agree with the documented assessment and plan, with the following changes: none Objective - Vital Signs Vital signs: Vital Signs Temp 98.7 F 01/08/22 07:55 Pulse 76 01/08/22 07:55 Resp 20 01/08/22 07:55 BP 138/79 01/08/22 07:55 Pulse Ox 97 01/08/22 07:55 FiO2 Intake & Output 01/07/22 01/08/22 01/08/22 18:59 06:59 18:59 Other: Voiding Method Indwelling Catheter Urinal # Voids 5 3 # Bowel Movements 1 - Labs CBC & Chem 7: 01/07/22 03:58 01/08/22 06:15 Labs: Abnormal Lab Results - Last 24 Hours (Table) 01/07/22 01/07/22 01/07/22 Range/Units 03:58 03:58 11:29 WBC 13.25 H (4.50-10.00) X 10*3/uL RBC 3.82 L (4.40-5.60) X 10*6/uL Hgb 11.1 L (13.0-17.0) g/dL Hct 34.5 L (39.6-50.0) % Sodium (137-145) mmol/L Glucose 132 H (70-110) mg/dL POC Glucose (mg/dL) 148 H (75-99) mg/dL Calcium 7.5 L (8.7-10.3) mg/dL Alkaline Phosphatase 134 H (41-126) U/L Total Protein 5.6 L (6.2-8.2) g/dL Albumin 2.3 L (3.8-4.9) g/dL Albumin/Globulin Ratio 0.70 L (1.60-3.17) g/dL 01/07/22 01/07/22 01/08/22 Range/Units 16:32 21:30 06:15 WBC (4.50-10.00) X 10*3/uL RBC (4.40-5.60) X 10*6/uL Hgb (13.0-17.0) g/dL Hct (39.6-50.0) % Sodium 135 L (137-145) mmol/L Glucose 124 H (70-110) mg/dL POC Glucose (mg/dL) 217 H 167 H (75-99) mg/dL Calcium 7.9 L (8.7-10.3) mg/dL Alkaline Phosphatase (41-126) U/L Total Protein (6.2-8.2) g/dL Albumin (3.8-4.9) g/dL Albumin/Globulin Ratio (1.60-3.17) g/dL 01/08/22 01/08/22 Range/Units 06:55 07:00 WBC (4.50-10.00) X 10*3/uL RBC (4.40-5.60) X 10*6/uL Hgb (13.0-17.0) g/dL Hct (39.6-50.0) % Sodium (137-145) mmol/L Glucose (70-110) mg/dL POC Glucose (mg/dL) 124 H 116 H (75-99) mg/dL Calcium (8.7-10.3) mg/dL Alkaline Phosphatase (41-126) U/L Total Protein (6.2-8.2) g/dL Albumin (3.8-4.9) g/dL Albumin/Globulin Ratio (1.60-3.17) g/dL Microbiology - Last 24 Hours (Table) 01/02/22 05:03 Blood Culture - Final Blood No Growth after 144 hours 01/04/22 20:49 Anaerobic Culture - Preliminary Leg - Left 01/04/22 20:49 Anaerobic Culture - Preliminary Leg - Left 01/04/22 20:49 Gram Stain - Final Leg - Left Wound Culture - Final Methicillin resist S. aureus 01/04/22 20:49 Gram Stain - Final Leg - Left Wound Culture - Final Methicillin resist S. aureus 01/01/22 05:48 Blood Culture - Final Blood No Growth after 144 hours
[2022-01-08] MEDS: HYDROcodone/APAP 5-325MG 1 EACH TAB PO PRN (11:38)
[2022-01-08 11:43] LABS: Glucose,Whole Blood 146 mg/dL (75-99)
[2022-01-08 14:53] VITALS: BP 139/71; PULSE 89; RESP 17; TEMP 98.2
--- NOTE | 2022-01-08 21:55 | P.DS ---
Providers Date of admission: 12/30/21 20:51 Attending physician: Hoang Garcia MD Consults: 12/31/21 14:16 Consult Physician Routine Consulting Provider: Ricky Khan Consult Reason/Comments: positive blood cultures Do you want consulting provider notified?: Yes 12/31/21 18:14 Consult Physician Routine Consulting Provider: Juan Mckenna Consult Reason/Comments: sepsis Do you want consulting provider notified?: Already Contacted 01/03/22 07:31 Consult Physician Routine Consulting Provider: Latoya Bravo Consult Reason/Comments: swollen LLE Do you want consulting provider notified?: Yes 01/04/22 10:13 Consult Physician Routine Consulting Provider: Frank Don Consult Reason/Comments: medical management Do you want consulting provider notified?: Yes Primary care physician: Lennox Mann [facility] Hospital Course: this is a 51-year-old male admitted to the hospital with a scrotal abscess on December 31, 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 Patient was immediately taken to the OR for debridement by Dr. Pan on December 31. Please see op note dated December 31 for surgery details. Postoperatively patient was admitted to the ICU given the Mario's presentation. His hospital course was also complicated by a left calf abscess. Orthopedic surgery was consulted on January 03 for that, underwent an MRI on January 04 which showed evidence of a deep left calf abscess, he was taken to the OR by Dr. Bravo for drainage. During his hospital admission he continued with local wound care and IV antibiotics, infectious disease was consulted for IV antibiotics recommendation. His White catheter was removed on January 07, and he had a PICC line placed also on January 07. He was discharged home on January 08 with IV vancomycin. He was advised to continue with dressing change as an outpatient. At time of discharge he was tolerating a diet ambulating and pain was controlled Patient Condition at Discharge: Serious Plan - Discharge Summary New Discharge Prescriptions: New HYDROcodone/APAP 5-325MG [[place] 5-325] 1 tab PO Q4HR PRN 3 Days #18 tab PRN Reason: Pain Continue Multivitamins, Thera [Multivitamin (formulary)] 1 tab PO DAILY Discharge Medication List Multivitamins, Thera [Multivitamin (formulary)] 1 tab PO DAILY 12/30/21 [History] HYDROcodone/APAP 5-325MG [[place] 5-325] 1 tab PO Q4HR PRN 3 Days #18 tab 01/08/22 [Rx] Follow up Appointment(s)/Referral(s): Juanjo Noguera PAC [PHYSICIAN [employer]] - 01/11/22 10:15 am (Patient may follow-up with Juanjo Noguera PA-C at [facility] this coming 01/11/2022, following discharge. ) [facility], [NON-STAFF] - As Needed [facility], [REFERRING] - As Needed ([facility] will deliver antibiotic to your home tonight between 6-8p.) Ricky Khan MD [STAFF PHYSICIAN] - 01/15/22 2:30 pm Lennox Banks MD [STAFF PHYSICIAN] - 2 Weeks (Office currently closed, please call to schedule appointment) Lennox Mann MD [Primary Care Provider] - 1-2 days ([facility] will contact you to schedule follow up appointment) Patient Instructions/Handouts: MRSA (Methicillin-Resistant Staphylococcus Aureus) (DC), Abscess Incision and Drainage (DC), How to Care for Your PICC (Peripherally Inserted Central Catheter) (DC) Activity/Diet/Wound Care/Special Instructions: Activity: As tolerated. Take breaks as needed. Diet: Heart healthy and carb consistent diet. Avoid salts, or foods with hidden salts such as canned or boxed foods and frozen dinners. Extra salt makes your heart work harder and traps the fluid in your body for longer. Special Instructions: Take all of your medications as directed and remember to keep all of your doctor's appointments and follow-up as needed. Thank you for allowing us to participate in your care, it was truly a pleasure having you for our patient!!! Enjoy going home and spending time with your hubby and [id number]!!! Postsurgical debridement of left lower extremity discharge instructions include... 1. Patient may weight-bear as tolerated on the left lower extremity 2. Keep surgical site of the left calf clean, dry, and intact 3. Patient may shower with a dressing intact over his left lower extremity surgical site 4. Patient is encouraged to elevate the left lower extremity may apply ice for comfort and support as needed 5. Avoid standing water 6. Continue daily dressing changes as needed 7. Take medications as prescribed 8. If any questions or concerns patient may call [facility] at [phone] Wound care for scrotum: Sitz bath, iodoform packing strip 1 inch, moist 4x4, ABD- CHANGED DAILY Discharge Disposition: HOME SELF-CARE
[2022-01-09] MEDS ORDERED: VANCOMYCIN TROUGH DUE 1 EACH MISC MISCELLANE ONE (08:00)
--- NOTE | 2022-01-10 10:41 | CDI ---
Documentation Clarification Form Date: 01/09/22 From: Shantal Campbell Admit Date: 12/30/2021 08:51:00 PM Patient Name: Jarvis Bhat Visit Number: [id number] Discharge Date: 01/08/2022 06:46:00 PM ATTENTION: The Clinical Documentation Specialists (CDI) and [facility] Coding Staff appreciate your assistance in clarifying documentation. Please respond to the clarification below the line at the bottom and electronically sign. The CDI & [facility] Coding staff will review the response and follow-up if needed. Please note: Queries are made part of the Legal Health Record. If you have any questions, please contact the author of this message via ITS. Dr. Lennox Banks, A debridement is documented in your operative note on 11/30. Additional clarification regarding the procedure is requested. History/Risk Factors: Mario gangrene, abscess of scrotum and abscess of left leg, prediabetes Clinical Indicators: Per Op report - I then extended incision further posteriorly. Debridement manually up in both inguinal canals. I then make a counter incision where the initial lesion was identified and extended superiorly. I debrided a significant amount of tissue also in that region. Treatment: Extensive debridement and drainage of scrotal abscess, debridement of necrotic Mario's gangrene irrigation with packing Please clarify the type of procedure performed: [ ] Excisional debridement (the removal of necrotic, devitalized tissue or slough by means of cutting away of tissue) [ ] Non-excisional debridement (the removal of necrotic, devitalized tissue or slough by means of flushing, brushing, or washing. (Irrigation) [ ] Other; please specify [ ] Unable to determine Five elements required for accurate and compliant documentation of a debridement: Technique used (e.g., excisional, excised, cutting, brushing, jet lavage etc.) Instrument(s) used (e.g., scalpel, curette, etc.) Nature of the tissue removed (e.g., necrotic, devitalized tissues, non-viable tissue, etc.) Appearance and size of the wound (e.g., down to fresh bleeding tissue, 7cm x 10cm, etc.) Depth of the debridement* (e.g., skin, subcutaneous tissue, fascia, muscle, bone, etc.) MTDD
--- NOTE | 2022-01-11 11:09 | CDI ---
Documentation Clarification Form Date: 01/10/2022 10:40:00 AM From: Shantal Campbell Admit Date: 12/30/2021 08:51:00 PM Patient Name: Jarvis Bhat Visit Number: [id number] Discharge Date: 01/08/2022 06:46:00 PM ATTENTION: The Clinical Documentation Specialists (CDI) and [facility] Coding Staff appreciate your assistance in clarifying documentation. Please respond to the clarification below the line at the bottom and electronically sign. The CDI & [facility] Coding staff will review the response and follow-up if needed. Please note: Queries are made part of the Legal Health Record. If you have any questions, please contact the author of this message via ITS. Dr. Lennox Banks, A debridement is documented in your operative note on 12/31. Additional clarification regarding the procedure is requested. History/Risk Factors: Mario gangrene, abscess of scrotum and abscess of left leg, prediabetes Clinical Indicators: Per Op report - I then extended incision further posteriorly. Debridement manually up in both inguinal canals. I then make a counter incision where the initial lesion was identified and extended superiorly. I debrided a significant amount of tissue also in that region. Treatment: Extensive debridement and drainage of scrotal abscess, debridement of necrotic Mario's gangrene irrigation with packing Please clarify the type of procedure performed: [ ] Excisional debridement (the removal of necrotic, devitalized tissue or slough by means of cutting away of tissue) [ ] Non-excisional debridement (the removal of necrotic, devitalized tissue or slough by means of flushing, brushing, or washing. (Irrigation) [ ] Other; please specify [ ] Unable to determine Five elements required for accurate and compliant documentation of a debridement: Technique used (e.g., excisional, excised, cutting, brushing, jet lavage etc.) Instrument(s) used (e.g., scalpel, curette, etc.) Nature of the tissue removed (e.g., necrotic, devitalized tissues, non-viable tissue, etc.) Appearance and size of the wound (e.g., down to fresh bleeding tissue, 7cm x 10cm, etc.) Depth of the debridement* (e.g., skin, subcutaneous tissue, fascia, muscle, bone, etc.) MTDD
--- NOTE | 2022-01-15 10:44 | CDI ---
Documentation Clarification Form Date: 01/10/2022 10:40:00 AM From: Shantal Campbell Admit Date: 12/30/2021 08:51:00 PM Patient Name: Jarvis Bhat Visit Number: [id number] Discharge Date: 01/08/2022 06:46:00 PM ATTENTION: The Clinical Documentation Specialists (CDI) and [facility] Coding Staff appreciate your assistance in clarifying documentation. Please respond to the clarification below the line at the bottom and electronically sign. The CDI & [facility] Coding staff will review the response and follow-up if needed. Please note: Queries are made part of the Legal Health Record. If you have any questions, please contact the author of this message via ITS. Dr. Lennox Banks, A debridement is documented in your operative note on 12/31. Additional clarification regarding the procedure is requested. History/Risk Factors: Mario gangrene, abscess of scrotum and abscess of left leg, prediabetes Clinical Indicators: Per Op report - I then extended incision further posteriorly. Debridement manually up in both inguinal canals. I then make a counter incision where the initial lesion was identified and extended superiorly. I debrided a significant amount of tissue also in that region. Treatment: Extensive debridement and drainage of scrotal abscess, debridement of necrotic Mario's gangrene irrigation with packing Please clarify if debridement was excisional or non-excisional: [ ] Excisional debridement (the removal of necrotic, devitalized tissue or slough by means of cutting away of tissue) [ ] Non-excisional debridement (the removal of necrotic, devitalized tissue or slough by means of flushing, brushing, or washing. (Irrigation) [ ] Other; please specify [ ] Unable to determine Five elements required for accurate and compliant documentation of a debridement: Technique used (e.g., excisional, excised, cutting, brushing, jet lavage etc.) Instrument(s) used (e.g., scalpel, curette, etc.) Nature of the tissue removed (e.g., necrotic, devitalized tissues, non-viable tissue, etc.) Appearance and size of the wound (e.g., down to fresh bleeding tissue, 7cm x 10cm, etc.) Depth of the debridement* (e.g., skin, subcutaneous tissue, fascia, muscle, bone, etc.) MTDD
--- NOTE | 2022-01-16 00:03 | P.PN ---
Subjective Progress Note Date: 01/08/22 Principal diagnosis: scrotal gangrene and MRSA bacteremia Patient is a 51-year-old male presenting to the hospital with scrotal pain swelling redness has been diagnosed with Mario's gangrene status post extensive scrotal debridement and the patient also have MRSA bacteremia. Patient also have a pain to the left leg ultrasound suggestive of a cystic lesion MRI is concerning for possible abscess versus hematoma, patient is status post surgical drainage of left leg intramuscular abscess by orthopedics on 01/04/2022 On today's evaluation that is 01/08/2022, patient is afebrile, patient pain to the scrotal as well as left leg has decreased in intensity , the patient denies any chest pain shortness of breath or cough, no abdominal pain or diarrhea Objective - Vital Signs Vital signs: Vital Signs Temp 98.7 F 01/08/22 07:55 Pulse 76 01/08/22 07:55 Resp 20 01/08/22 07:55 BP 138/79 01/08/22 07:55 Pulse Ox 97 01/08/22 07:55 FiO2 Intake & Output 01/07/22 01/08/22 01/08/22 18:59 06:59 18:59 Other: Voiding Method Indwelling Catheter Urinal Urinal # Voids 5 3 # Bowel Movements 1 - Exam GENERAL DESCRIPTION: Middle-aged male lying in bed in no distress RESPIRATORY SYSTEM: Unlabored breathing , decreased breath sounds at bases HEART: S1 S2 regular rate and rhythm , ABDOMEN: Soft , no tenderness : Scrotal wound is currently dressed surrounding redness has decreased and no foul-smelling drainage EXTREMITIES: Left lower extremity lateral border swelling redness has decreased stitches are intact - Labs CBC & Chem 7: 01/07/22 03:58 01/08/22 06:15 Labs: Abnormal Lab Results - Last 24 Hours (Table) 01/07/22 01/07/22 01/07/22 Range/Units 11:29 16:32 21:30 Sodium (137-145) mmol/L Glucose (74-99) mg/dL POC Glucose (mg/dL) 148 H 217 H 167 H (75-99) mg/dL Calcium (8.4-10.2) mg/dL 01/08/22 01/08/22 01/08/22 Range/Units 06:15 06:55 07:00 Sodium 135 L (137-145) mmol/L Glucose 124 H (74-99) mg/dL POC Glucose (mg/dL) 124 H 116 H (75-99) mg/dL Calcium 7.9 L (8.4-10.2) mg/dL Microbiology - Last 24 Hours (Table) 01/02/22 05:03 Blood Culture - Final Blood No Growth after 144 hours 01/04/22 20:49 Anaerobic Culture - Preliminary Leg - Left 01/04/22 20:49 Anaerobic Culture - Preliminary Leg - Left 01/04/22 20:49 Gram Stain - Final Leg - Left Wound Culture - Final Methicillin resist S. aureus 01/04/22 20:49 Gram Stain - Final Leg - Left Wound Culture - Final Methicillin resist S. aureus 01/01/22 05:48 Blood Culture - Final Blood No Growth after 144 hours Assessment and Plan (1) Abscess of scrotum Status: Acute Code(s): N49.2 - INFLAMMATORY DISORDERS OF SCROTUM SNOMED Code(s): 75702643 Plan: 1patient presented to hospital with sepsis this patient with a fever elevated white count tachycardia secondary to extensive scrotal cellulitis/Mario's gangrene in this patient was status post extensive debridement and drainage of the scrotal abscess. 2local cultures finalized with MRSA and strep. 3patient did have MRSA bacteremia, blood culture repeat has been negative 4patient with left leg pain ultrasound left leg with a cystic lesion, MRI has been suggestive of abscess versus hematoma patient is status post surgical debridement with the drainage of the abscess cultures finalized as MRSA 5 patient did got a PICC line and plan is for vancomycin pharmacy to dose 3 weeks and a close outpatient follow-up, local care per surgery Time with Patient: Less than 30
--- NOTE | 2022-01-18 08:28 | CDI ---
Documentation Clarification Form Date: 01/10/2022 10:40:00 AM From: Shantal Campbell Admit Date: 12/30/2021 08:51:00 PM Patient Name: Jarvis Bhat Visit Number: [id number] Discharge Date: 01/08/2022 06:46:00 PM ATTENTION: The Clinical Documentation Specialists (CDI) and [facility] Coding Staff appreciate your assistance in clarifying documentation. Please respond to the clarification below the line at the bottom and electronically sign. The CDI & [facility] Coding staff will review the response and follow-up if needed. Please note: Queries are made part of the Legal Health Record. If you have any questions, please contact the author of this message via ITS. Dr. Lennox Banks A debridement is documented in your operative note on 12/31. Additional clarification regarding the procedure is requested. History/Risk Factors: Mario gangrene, abscess of scrotum and abscess of left leg, prediabetes Clinical Indicators: Per Op report - I then extended incision further posteriorly. Debridement manually up in both inguinal canals. I then make a counter incision where the initial lesion was identified and extended superiorly. I debrided a significant amount of tissue also in that region. Treatment: Extensive debridement and drainage of scrotal abscess, debridement of necrotic Mario's gangrene irrigation with packing Please clarify if debridement was excisional or non-excisional: [ ] Excisional debridement (the removal of necrotic, devitalized tissue or slough by means of cutting away of tissue) [ ] Non-excisional debridement (the removal of necrotic, devitalized tissue or slough by means of flushing, brushing, or washing. (Irrigation) [ ] Other; please specify [ ] Unable to determine Five elements required for accurate and compliant documentation of a debridement: Technique used (e.g., excisional, excised, cutting, brushing, jet lavage etc.) Instrument(s) used (e.g., scalpel, curette, etc.) Nature of the tissue removed (e.g., necrotic, devitalized tissues, non-viable tissue, etc.) Appearance and size of the wound (e.g., down to fresh bleeding tissue, 7cm x 10cm, etc.) Depth of the debridement* (e.g., skin, subcutaneous tissue, fascia, muscle, bone, etc.) MTDD
--- NOTE | 2022-01-18 10:56 | P.PN ---
Subjective Progress Note Date: 01/18/22 The patient was in the hospital from 12/31/21 to 01/08/22. The patient was diagnosed with fourniers gangrene of the scrotum. He had on 12/31/21 an aggresive, deep[below the subq] wide excisional debridement of the necrotic scrotal tissue. He was subsequently treated with iv ab and dressing changes. He also had drainage of a left calf deep muscle abscess by Dr Bravo. He was discharged home 01/08/22 Objective - Vital Signs Vital signs: Vital Signs Temp 98.2 F 01/08/22 13:00 Pulse 89 01/08/22 13:00 Resp 17 01/08/22 13:00 BP 139/71 01/08/22 13:00 Pulse Ox 100 01/08/22 13:00 FiO2 - Labs CBC & Chem 7: 01/07/22 03:58 01/08/22 06:15
== END 2022-01-08 18:46 | disposition home health service (06) | DRG 854 ==
LOC: SUPCPDRO 18:41 → EC 18:41 → 5NMEDONC 20:51 → 2SICU 12-31 17:46 → 4SSUR 01-02 04:56
PROVIDERS: ADMIT Urology; ATTEND Urology
PROC: 0JDC0ZZ Extraction of Pelvic Region Subcutaneous Tissue and Fascia, Open Approach (ICD-10-PCS; principal; 2021-12-31 14:15)
PROC: 0VB50ZZ Excision of Scrotum, Open Approach (ICD-10-PCS; principal; 2021-12-31 14:15)
PROC: 0V950ZZ Drainage of Scrotum, Open Approach (ICD-10-PCS; principal; 2021-12-31 14:15)
PROC: 02HV33Z Insertion of Infusion Device into Superior Vena Cava, Percutaneous Approach (ICD-10-PCS; 2022-01-04)
PROC: 0KBT0ZZ Excision of Left Lower Leg Muscle, Open Approach (ICD-10-PCS; 2022-01-04)
PROC: 05HB33Z Insertion of Infusion Device into Right Basilic Vein, Percutaneous Approach (ICD-10-PCS; 2022-01-04)
DX: A41.02 Sepsis due to Methicillin resistant Staphylococcus aureus (principal); L02.416 Cutaneous abscess of left lower limb; N49.3 Fournier gangrene; R73.03 Prediabetes; N49.2 Inflammatory disorders of scrotum; R73.9 Hyperglycemia, unspecified; D64.9 Anemia, unspecified; Z98.818 Other dental procedure status; Z91.011 Allergy to milk products
CPT/HCPCS: 36410; 36415; 36573; 71045; 72193; 80048; 80053; 80202; 81001; 82565; 83036; 83605; 83735; 84100; 85025; 85027; 85610; 85730; 86140; 87040; 87070; 87075; 87077; 87086; 87102; 87116; 87186; 87205; 87206; 88304; 88312; 96365; 96367; 96375; 99291